=== PATIENT | female | born 1940 | race Caucasian/White ===

== ENCOUNTER 2025-03-05 20:46 | Inpatient (IN) | payer MEDICARE, BC, SELFPAY ==
[2025-03-05] VITALS (18 sets, daily range): BP systolic 103–140; BP diastolic 44–81; PULSE 81–109; RESP 12–29; TEMP 37.3; O2SAT 88–98; BMI 23.8
--- NOTE | ~2025-03-05 | XR_ITS ---
XR chest 1V portable Ordering provider: Bobby oCto MD History: 84 years Female with . Rigors, Course lung sounds . Comparison: None. FINDINGS: MEDIASTINUM: The cardiac silhouette is slightly enlarged. Right hilar prominence suggestive of a mass or lymphadenopathy. CT evaluation advised. LUNGS: Vague opacity in the right upper lobe measuring 1.4 cm which may be a nodule or granuloma. Opa cification in the right lung base is not excluded which may indicate atelectasis versus pneumonia. Cl inical correlation advised. Otherwise, No effusions or pneumothorax. Underlying fibrotic changes. OTHER: No free air under the diaphragm. Right shoulder arthroplasty. Severe left shoulder osteoarthri tic changes. IMPRESSION: Very prominent right hilum. Further evaluation advised. Vague opacity in the right upper lobe which may be a nodule or granuloma. Possible atelectasis versus pneumonia in the right lung base. Reviewed, dictated and finalized at location A.
--- NOTE | ~2025-03-05 | CT_ITS ---
CT Scan of the Chest without Contrast: Clinical Indication: Pneumonia Technique: Contiguous sections were acquired throughout the chest without intravenous contrast. Dose reduction technique was used on this scan by utilizing automated exposure control and iterative recon struction technique. The dose-length product (DLP) was 157.08 mGy-cm. Findings: There is no evidence of any significant mediastinal, hilar or axillary lymphadenopathy. Calcified sub carinal and right hilar lymph nodes are present. There are atherosclerotic calcifications of aorta an d coronary arteries. There is no evidence of pleural or pericardial effusion. There is extensive patchy consolidation at the inferior right lower lobe, compatible with acute pneum onia. There is bronchiectatic change and scarring at the right middle lobe and lingula with scattered tree-in-bud opacities. There are a few additional areas of grouped nodules in the right lower lobe a nd right upper lobe, with nodules measuring up to 9 mm, most compatible small airways infectious proc ess or small impacted airways. There are a few scattered subcentimeter nodules in the left lower lobe as well. Images through the upper abdomen reveal no abnormalities. Impression: Acute pneumonia in the inferior right lower lobe. Findings compatible with acute on chronic small airways infection scattered throughout both lungs, wi th extensive bronchiectatic change in the right middle lobe and lingula in particular, with additiona l scattered subcentimeter nodules present. Neoplastic disease felt to be less likely, though not comp letely excluded. Reviewed, dictated and finalized at location . Impression: Acute pneumonia in the inferior right lower lobe. Findings compatible with acute on chronic small airways infection scattered thr oughout both lungs, with extensive bronchiectatic change in the right middle lo be and lingula in particular, with additional scattered subcentimeter nodules p resent. Neoplastic disease felt to be less likely, though not completely exclud ed.
--- NOTE | 2025-03-05 21:02 | ECG_ITS ---
Test Date: 2025-03-05 21:04:50 Measurements Intervals [place] Rate: 90 P: 54 SD: 212 QRS: -69 QRSD: 135 T: 84 QT: 349 QTc: 427 Interpretive Statements SINUS RHYTHM WITH FIRST DEGREE AV BLOCK LEFT AXIS DEVIATION [QRS AXIS < -30] LEFT BUNDLE BRANCH BLOCK [120+ ms QRS DURATION, 80+ ms Q/S IN V1/V2, 85+ ms R IN I/aVL/V5/V6] No previous ECG available for comparison Electronically Signed On 03-07-2025 14:11:34 CDT by Shelia Quinn M.D.
[2025-03-05] MEDS: SODIUM CHLORIDE 0.9% IV 1,000 ML 999 ML IV CONT (21:37)
[2025-03-05 21:42] LABS: Basophils Percent Auto 0.3 % (0.2-1.2); Eosinophils Percent Auto 0.1 % (0-4.4); Hematocrit 42.9 % (37.0-47.0); Immature Granulocyte Absolute 0.06 K/mm3 (0.00-0.031); Immature Granulocyte Percent A 0.5 % (0-0.5); Mean Corpuscular HGB Conc 32.6 g/dl (32-36); Mean Corpuscular Volume 98.2 fl (80-100); Mean Platelet Volume 9.4 fl (7.4-10.4); Monocytes Absolute Auto 0.5 K/mm3 (0.1-0.6); Monocytes Percent Auto 3.5 % (2.6-8.5); Neutrophils Absolute Auto 12.2 K/mm3 (1.3-6.7); Neutrophils Percent Auto 92.6 % (45.5-73.1); Platelet Count Result 161 k/mm3 (150-375); Red Blood Count 4.37 M/mm3 (4.2-5.4); Red Cell Distribution Width 12.4 % (11.5-14.5); White Blood Count 13.1 K/mm3 (4.5-10.0)
[2025-03-05 21:45] LABS: Fractional Inspired Oxygen 21 %; PCO2 VBG 40.7 mmHg (42.0-48.0)
[2025-03-05 21:47] LABS: Add Urine Microscopic? YES; Appearance Urine Clear (Clear); Bacteria Urine None Seen /hpf; Bilirubin Urine Negative (Negative); Blood Urine 1+ (Negative); Color Urine Yellow (Yellow); Glucose Urine UA Negative (Negative); Ketones Urine Negative (Negative); Leukocyte Esterase Ur Negative LEU/UL (Negative); Nitrate Urine Negative (Negative); Non Pathogenic Casts 0-2; Protein Urine Negative (Negative); Specific Grav Ur 1.012 (1.001-1.035); Squamous Epithelial Cell Urine None Seen /hpf (Few); WBC Urine 0-5 /hpf (0-3)
[2025-03-05 21:48] LABS: PO2 VBG < 27.0 mmHg (35.0-45.0); pH VBG 7.407 (7.300-7.400)
[2025-03-05 21:53] LABS: Lactic Acid Reflex 1.6 mmol/L (0.7-2.0)
[2025-03-05 21:54] LABS: INR 1.1; Prothrombin Time 14.4 Seconds (11.1-14.7)
--- OUTSIDE RECORDS SUMMARY | 2025-03-05 21:54 | XMS_ITS | Referral Summary ---
Author Organization [facility] Address [address] [place] [address] Care Team Providers Care Microsoft Office Instructor Name Role Phone James Morse MD Primary Care Provider [phone] Ji Rodriguez MD Unavailable [phone] Danielle Reinoso RN Unavailable Unavailable Nancy Sutton RN Unavailable Unavailab le Encounters Date Type Department Care Team Description 12/08/2024 Orders Only [facility] [address] [facility] [address] [place] [address] Ethel Calles RMA from Last 3 Months Allergies Active Allergy Reactions Criticality Noted Date Comments Azithromycin Nausea And Vomiting 07/08/2016 Severe nausea and diarrhea Ethambutol Hives Medium Reaction: HIVES Sulfa (Sulfonamide Antibiotics) Hives,Rash Reaction: HIVES, Reaction: Rash, Medications docusate sodium (COLACE) 100 mg capsuleIndicati ons:constipatio n Take 1 capsule (100 mg total) by mouth daily as needed Active acetaminophen ER (TYLENOL) 650 mg 8 hr tabletIndicatio ns:Pain Take 1-2 tablets (650-1,300 mg total) by mouth every 8 (eight) hours as needed Active aspirin 81 mg enteric coated tabletIndicatio ns:Myocardial Reinfarction Prevention Take 1 tablet (81 mg total) by mouth every morning Active fluticasone propion-salmete roL (ADVAIR DISKUS) 100-50 mcg/dose diskus inhaler Inhale 1 puff 2 (two) times a day Rinse mouth with water after use. Do not swallow. 3 each 1 07/09/20 23 Active Additional Information Patient not taking.Reported on 09/19/2024 furosemide (LASIX) 20 mg tablet Take 1 tablet (20 mg total) by mouth every other day 45 tablet 3 02/29/20 24 Active losartan (COZAAR) 25 mg tablet Take 1 tablet (25 mg total) by mouth daily 90 tablet 1 12/08/19 25 026 Active levothyroxine (SYNTHROID) 50 mcg tablet TAKE 1 TABLET BY MOUTH EVERY DAY 90 tablet 3 12/23/19 25 Active amLODIPine (NORVASC) 2.5 mg tablet Take 1 tablet (2.5 mg total) by mouth daily 90 tablet 1 01/19/20 25 026 Active metoprolol XL (TOPROL-XL) 100 mg 24 hr tablet TAKE 1 TABLET BY MOUTH EVERY DAY 90 tablet 3 01/25/20 25 Active gabapentin (NEURONTIN) 300 mg capsule TAKE 1 CAPSULE BY MOUTH THREE TIMES A DAY 90 capsule 2 02/21/20 25 Active celecoxib (CeleBREX) 100 mg capsule TAKE 1 CAPSULE BY MOUTH TWICE A DAY WITH MEALS 180 capsule 02/28/20 25 Active gabapentin (NEURONTIN) 300 mg capsule TAKE 1 CAPSULE BY MOUTH THREE TIMES A DAY 90 capsule 1 11/21/19 25 025 Discontinued celecoxib (CeleBREX) 100 mg capsule TAKE 1 CAPSULE BY MOUTH TWICE A DAY WITH MEALS 180 capsule 11/27/19 25 025 Discontinued Active Problems Problem Noted Date Diagnosed Date 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 Heart failure with reduced ejection fraction 03/2025 Assessment & Plan (12/01/2024 12:29 PM CLIPPER MACHINE OPERATOR): Stable. No signs of decompensation Chronic cough 12/01/2024 Assessment & Plan (12/01/2024 12:29 PM CLIPPER MACHINE OPERATOR): Refer to pulmonary Mycobacterium avium-intracellulare infection 08/ 11/2020 Overview (05/27/2021): treated for 2 years Arthritis 07/19/2019 Overview (07/19/2019): Overview: generalized History of asthma 07/19/2019 Overview (07/19/2019): Overview: no symptoms, but uses inhaler daily Hypertension 07/19/2019 Assessment & Plan (12/01/2024 12:29 PM CLIPPER MACHINE OPERATOR): Blood pressure has been somewhat lower. Will have her hold her evening losartan take losartan 50 in the morning and amlodipine 10 at HS. Primary osteoarthritis of left hip 08/27/2018 Assessment & Plan (12/01/2024 12:29 PM CLIPPER MACHINE OPERATOR): Chronic. 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 03/11/2014 Overview (01/29/2017): MYCOBACTERIAL DIS NOS Immunizations Immunization Administration Dates Next Due Influenza, Quad, Adjuvantated, Intramuscular 05/2023,08/06/2021 Influenza, Quadrivalent, Hig h Dose, Preservative Free, Intrr 09/03/2022 Influenza, Trivalent, Adjuvanted, Intramuscular 08/05/2024 Influenza, Trivalent, High D ose, Split, Preservative Free, Intramuscular 08/03/2015,08/08/2014 Influenza, Trivalent, Preservative Free, Intramu scular 08/08/2013 Pneumococcal Conjugate Pcv20 11/06/2023 RSV Vaccine, Pref, Recombina nt, Subunit, Adjuvanted, PF, IM (Arexvy) 11/26/2023 ZOSTER LIVE 02/03/2008 ZOSTER Recombinant 02/06/2024 Social History Tobacco Use Types Packs/Day Years Used Date Smoking Tobacco: Never Smokeless Tobacco: Never Tobacco Cessation:Counseling Given: Not Answered Alcohol Use Standard Drinks/Week Comments No 0 (1 standard drink = 0.6 oz pur e alcohol) AUDIT-C Answer Date Recorded Q1: How often do you have a drink containing alc ohol? Never 08/12/2021 Average Number of Drinks Not on file 021 Q3: How often do you have si x or more drinks on one occasion? Never 08/12/2021 Comments No Sex and Gender Information Value Date Recorded Sex Assigned at Not on file Legal Sex Female 11:31 PM CLIPPER MACHINE OPERATOR Gender Identity Female 03/12/2022 7:56 AM CDT Sexual Orientation Not on file Occupation Industry Job Start Date Job End Date Retired Not on file Not on file Not on file Last Filed Vital Signs Vital Sign Reading Time Taken Comments Blood Pressure 129/76 12/01/2024 11:48 AM CLIPPER MACHINE OPERATOR Pulse 76 12/01/2024 11:48 AM CLIPPER MACHINE OPERATOR Temperature 36.4 C (97.6 F) 08/02/2019 1:07 PM CDT Respiratory Rate 16 08/02/2019 1:07 PM CDT Oxygen Saturation 93% 09/19/2024 4:07 PM CLIPPER MACHINE OPERATOR Inhaled Oxygen Concentration - - Weight 63 kg (139 lb) 12/01/2024 11:48 AM CLIPPER MACHINE OPERATOR Height 160 cm (5' 3 ) 12/01/2024 11:48 AM CLIPPER MACHINE OPERATOR Body Mass Index 24.62 12/01/2024 11:48 AM CLIPPER MACHINE OPERATOR Plan of Treatment Not on file Procedures Procedure Name Priority Date/Time Associated Diagnosis Comments DEXA AXIAL AND FOREARM BONE DENSITY SCAN Schedule Routine, Read Routine (OP Routine) 03/11/2021 12:03 PM CDT Osteoporosis, unspecified osteoporosis type, unspecified pathological fracture presence from Last 3 Months or Most Recently Relevant to Health Maintenance Results * Dexa Axial and Forearm Bone Density Scan (03/11/2021 12:03 PM CDT) Anatomical Region Laterality Modality Wrist, Body N/A Digital Radiogra phy 03/11/2021 1:03 PM CDT Impressions 03/11/2021 1:32 PM CDT 1. The bone mineral density of the lumbar spine is normal. There has been a statistically significant decrease in bone mineral density since the baseline examination of 04/25/2003. Please note that degenerative changes in the lumbar spine may underestimate the degree of demineralization. 2. The bone mineral density of the left distal 1/3 radius is markedly decreased. 3. Overall, the above findings are diagnostic of osteoporosis by WHO criteria. 4. Calculation of fracture risk using the FRAX model is not appropriate in certain settings. It was not performed in this patient because the patient met the following condition(s): Unilateral left hip replacement and severe osteoarthritis of the contralateral hip. General comments regarding interpretation of bone density measurements: A) In children, premenopausal woman and males under age 50 not at increased risk for fractures only Z-scores, not T-scores are used to indicate risk. A Z-score above -2.0 is defined as within the expected range for age and Z-score at or less than -2.0 is below the expected range for age . A Z-score below the expected range for age in a patient with recent fractures and/or chronic corticosteroid treatment is consistent with a diagnosis of osteoporosis. B) In post menopausal women and males over 50, comparison of the measured bone mineral density with the average value in young normal subjects (the T-score ) has been found to be useful in assessing fracture risk. Fracture risk approximately doubles for each 1.0 standard deviation (SD) in individual's hip or spine bone mineral density is below the average value of young normal subjects. The World Health Organization (WHO) has defined T-scores of -1.0 to -2.5 as diagnostic of low bone mass (OSTEOPENIA), and T-scores of -2.5 or lower to be diagnostic of OSTEOPOROSIS, based on the site of lowest bone density. Note that there will be a change in reporting format and reference databases as patients move from the younger population (group A) to the older population (group B) The National Osteoporosis Foundation (www.nof.org) recommends adequate intake of calcium and vitamin D and regular weight-bearing exercise in all patients. They recommend pharmacologic treatment in postmenopausal women and men age 50 and older presenting with any of the followin) Osteoporosis, after appropriate evaluation to exclude secondary causes. 2) A hip or vertebral (clinical or radiographic) fracture, regardless of the bone density. 3) Low bone mass (Osteopenia) and one or more of: other prior fractures, secondary causes associated with high risk of fracture (such as glucocorticoid use or total immobilization), or computed high risk of fracture (10-yr probability of hip fracture >= 3% or a 10-yr probability of any major osteoporosis-related fracture >= 20% based on the [place].-adapted WHO algorithm), available at http://www.shef.ac.uk/FRAX). Dictated by: Suzi Mejía M.D. The radiology attending physician has personally reviewed this study, and had reviewed and/or edited this written report and agrees with it. Electronically signed by: Yasmin Lara M.D. Narrative 03/11/2021 1:32 PM CDT BONE DENSITOMETRY OF THE SPINE AND FOREARM DATE OF STUDY: 03/11/2021 HISTORY: 80-year-old postmenopausal woman with subjective loss of height and self-reported osteoporosis. No current or recent antiresorptive medications. Evaluate bone mineral density. Additional risk factors for fracture: none. Forearm included in analysis due to right hip replacement and erosive osteoarthritis of the left hip. FINDINGS (SPINE): The bone mineral density of L1, L2 was assessed by dual-energy x-ray absorptiometry. The average bone mineral density within this region is 0.932 gm/sq-cm. This is 2.0 standard deviations above the mean of the average bone mineral density for age- and gender-matched subjects (the Z-score). It is 0.4 standard deviations below the mean peak bone mineral density in young adults (the T-score). L3 and L4 have been previously excluded due to sclerotic degenerative and scoliotic changes. FINDINGS (FOREARM): The bone mineral density of the left radius was assessed by dual-energy x-ray absorptiometry. The average bone mineral density within the distal 1/3 radius region is 0.475 gm/sq-cm. This is 0.7 standard deviations below the mean of the average bone mineral density for age- and gender-matched subjects (the Z-score). It is 3.7 standard deviations below the mean peak bone mineral density in young adults (the T-score). SUMMARY OF CURRENT RESULTS: Region BMD T-score Z-score AP Spine (L1, L2) 0.932 -0.4 2.0 1/3 Radius (Left) 0.475 -3.7 -0.7 COMPARISON WITH PREVIOUS RESULTS Region Age BMD T-score BMD Change BMD Change Exam Date g/cm2 vs Baseline vs Previous AP Spine (L1-L2) 03/11/2021 80 0.932 -0.4 -13.6%# -27.5%* 03/11/2021 80 1.285 2.8 19.1%# 19.1%# 04/25/2003 62 1.079 0.9 *Denotes significance at 95% confidence level # Denotes dissimilar scan types or analysis methods Procedure Note Yasmin Lara MD - 03/11/2021 BONE DENSITOMETRY OF THE SPINE AND FOREARM DATE OF STUDY: 03/11/2021 HISTORY: 80-year-old postmenopausal woman with subjective loss of height and self-reported osteoporosis. No current or recent antiresorptive medications. Evaluate bone mineral density. Additional risk factors for fracture: none. Forearm included in analysis due to right hip replacement and erosive osteoarthritis of the left hip. FINDINGS (SPINE): The bone mineral density of L1, L2 was assessed by dual-energy x-ray absorptiometry. The average bone mineral density within this region is 0.932 gm/sq-cm. This is 2.0 standard deviations above the mean of the average bone mineral density for age- and gender-matched subjects (the Z-score). It is 0.4 standard deviations below the mean peak bone mineral density in young adults (the T-score). L3 and L4 have been previously excluded due to sclerotic degenerative and scoliotic changes. FINDINGS (FOREARM): The bone mineral density of the left radius was assessed by dual-energy x-ray absorptiometry. The average bone mineral density within the distal 1/3 radius region is 0.475 gm/sq-cm. This is 0.7 standard deviations below the mean of the average bone mineral density for age- and gender-matched subjects (the Z-score). It is 3.7 standard deviations below the mean peak bone mineral density in young adults (the T-score). SUMMARY OF CURRENT RESULTS: Region BMD T-score Z-score AP Spine (L1, L2) 0.932 -0.4 2.0 1/3 Radius (Left) 0.475 -3.7 -0.7 COMPARISON WITH PREVIOUS RESULTS Region Age BMD T-score BMD Change BMD Change Exam Date g/cm2 vs Baseline vs Previous AP Spine (L1-L2) 03/11/2021 80 0.932 -0.4 -13.6%# -27.5%* 03/11/2021 80 1.285 2.8 19.1%# 19.1%# 04/25/2003 62 1.079 0.9 *Denotes significance at 95% confidence level # Denotes dissimilar scan types or analysis methods IMPRESSION: 1. The bone mineral density of the lumbar spine is normal. There has been a statistically significant decrease in bone mineral density since the baseline examination of 04/25/2003. Please note that degenerative changes in the lumbar spine may underestimate the degree of demineralization. 2. The bone mineral density of the left distal 1/3 radius is markedly decreased. 3. Overall, the above findings are diagnostic of osteoporosis by WHO criteria. 4. Calculation of fracture risk using the FRAX model is not appropriate in certain settings. It was not performed in this patient because the patient met the following condition(s): Unilateral left hip replacement and severe osteoarthritis of the contralateral hip. General comments regarding interpretation of bone density measurements: A) In children, premenopausal woman and males under age 50 not at increased risk for fractures only Z-scores, not T-scores are used to indicate risk. A Z-score above -2.0 is defined as within the expected range for age and Z-score at or less than -2.0 is below the expected range for age . A Z-score below the expected range for age in a patient with recent fractures and/or chronic corticosteroid treatment is consistent with a diagnosis of osteoporosis. B) In post menopausal women and males over 50, comparison of the measured bone mineral density with the average value in young normal subjects (the T-score ) has been found to be useful in assessing fracture risk. Fracture risk approximately doubles for each 1.0 standard deviation (SD) in individual's hip or spine bone mineral density is below the average value of young normal subjects. The World Health Organization (WHO) has defined T-scores of -1.0 to -2.5 as diagnostic of low bone mass (OSTEOPENIA), and T-scores of -2.5 or lower to be diagnostic of OSTEOPOROSIS, based on the site of lowest bone density. Note that there will be a change in reporting format and reference databases as patients move from the younger population (group A) to the older population (group B) The National Osteoporosis Foundation (www.nof.org) recommends adequate intake of calcium and vitamin D and regular weight-bearing exercise in all patients. They recommend pharmacologic treatment in postmenopausal women and men age 50 and older presenting with any of the followin) Osteoporosis, after appropriate evaluation to exclude secondary causes. 2) A hip or vertebral (clinical or radiographic) fracture, regardless of the bone density. 3) Low bone mass (Osteopenia) and one or more of: other prior fractures, secondary causes associated with high risk of fracture (such as glucocorticoid use or total immobilization), or computed high risk of fracture (10-yr probability of hip fracture >= 3% or a 10-yr probability of any major osteoporosis-related fracture >= 20% based on the [place].-adapted WHO algorithm), available at http://www.shef.ac.uk/FRAX). Dictated by: Suzi Mejía M.D. The radiology attending physician has personally reviewed this study, and had reviewed and/or edited this written report and agrees with it. Electronically signed by: Yasmin Lara M.D. James Morse MD IMG DXA PROCEDURES Final Resu lt from Last 3 Months or Most Recently Relevant to Health Maintenance Insurance MEDICARE [facility] [employer] MEDICARE MEDICARE [facility] Care Teams Microsoft Office Instructor Relationship Specialty Start Date End Date James Morse MD [address] [employer] [address] [address] PCP - General Internal Medicine 05/11/19 Ji Rodriguez MD [address] [employer] [address] [address] Referring Physician Cardiology 08/05/22 Danielle Reinoso, filament welder Failure Coordinator Transplant 11/25/23 Nancy Sutton, filament welder Failure Coordinator Cardiology 04/12/24
--- OUTSIDE RECORDS SUMMARY | 2025-03-05 21:54 | XMS_ITS | CONTINUITY OF CARE DOCUMENT ---
Author Name pratibha, pratibha Address Unknown Organization [facility] Address [address] [place] [address] Phone [phone] Care Team Providers Care Worm Raiser Name Role Phone Eddie LUO, Héctor Unavailable LYLE LUU MD Unavailable LYLE LUU MD Unavailable [phone] PROBLEMS Condition Status Date Provider Notes Shortness of breath active Liviapatricia Alatorre Chest pain active Livia Alatorre INSURANCE PROVIDERS Payer name Policy type / Coverage type Bonnie red green party ID [facility] [id number] 1 [place] [id number] HISTORY OF PROCEDURES Procedure Date Procedure Name Provider Procedure Notes S tatus Stress EKG Loco Shaw MD completed Regadenoson, 4 units Héctor Morgan MD completed Cardiolite, 2 units Héctor Morgan MD completed SPECT Images Héctor Morgan MD complet ed
--- OUTSIDE RECORDS SUMMARY | 2025-03-05 21:54 | XMS_ITS | Continuity of Care Document ---
Author Organization [facility] Address [address] [place] [address] Phone Care Team Providers Care Counseling Department Chair Name Role Phone Kevin Shaw DO Unavailable Unavailable Advance Directives Directive Yes / No Effective Date File Name No Information Encounters Encounter Description Practice Location Reason(s) For Visit Diagnoses Date Provider Providers Copied on Encounter [facility], [address], [place], [place], [id number], [place] tel:[phone] [facility] No Information Valeria Frederick. [address], [place], [address], [place]. tel: [phone] Family History Family Member Type Diagnosis Age At Onset No Information Payers Payer name Insurance type Covered democrat ID Authoriza tion(s) No Information Social History Type Description Quantity Date Captured Comments Sex Female Smoking Status No Information Chief Complaint And Reason For Visit No Information Reason For Referral Reason For Referral No Information History Of Present Illness Encounter Date Complaint History Of Prese nt Illness No Information Functional Status Date Functional Assessmen t No Information Instructions Date Instruction Additional Infor mation No Information Assessments Type Assessment Date No Information Patient Care Teams Name Effective Dates (start - stop) Status Members No Information
--- OUTSIDE RECORDS SUMMARY | 2025-03-05 21:54 | XMS_ITS | Clinical Summary ---
Author Organization [facility] Address [address] [place] [address] Care Team Providers Care Mucker Cofferdam Name Role Phone James Morse MD Primary Care Provider [phone] Ji Rodriguez MD Unavailable [phone] Danielle Reinoso RN Unavailable Unavailable Nancy Sutton RN Unavailable Unavailab le Allergies Active Allergy Reactions Criticality Noted Date [...] 12/01/2024 Assessment & Plan (12/01/2024 12:29 PM REPORTING COORDINATOR): Followed by cardiology. Heart failure with reduced ejection fraction 03/2025 Assessment & Plan (12/01/2024 12:29 PM REPORTING COORDINATOR): Stable. 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 Will have her hold her evening losartan take losartan 50 in the morning and amlodipine 10 at HS. Primary osteoarthritis of left hip 08/27/2018 Assessment & Plan (12/01/2024 12:29 PM REPORTING COORDINATOR): Chronic. 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 Swelling of extremity [...] mycobacteria 03/11/2014 Overview (01/29/2017): MYCOBACTERIAL DIS NOS Encounters Date Type Department Care Team Description 12/08/2024 Orders Only [facility] [address] [place] [address] Ethel Calles RMA from Last 3 Months Immunizations Immunization Administration Dates Next Due Influenza, Quad, Adjuvantated, Intramuscular 05/2023,08/06/2021 Influenza, Quadrivalent, Hig h Dose, Preservative Free, Intrr 09/03/2022 Influenza, Trivalent, Adjuvanted, Intramuscular 08/05/2024 Influenza, Trivalent, High D ose, Split, Preservative Free, Intramuscular 08/03/2015,08/08/2014 Influenza, Trivalent, Preservative Free, Intramu scular 08/08/2013 Pneumococcal Conjugate Pcv20 11/06/2023 RSV Vaccine, Pref, Recombina nt, Subunit, Adjuvanted, PF, IM (Arexvy) 11/26/2023 ZOSTER LIVE 02/03/2008 ZOSTER Recombinant 02/06/2024 Surgical History Surgery Date Site/Laterality Comments VAGINAL HYSTERECTOMY 10/26/2001 - 10/25/2002 Hysterectomy, vaginal HYSTERECTOMY JOINT REPLACEMENT ABDOMINAL SURGERY KNEE SURGERY HIP SURGERY SHOULDER SURGERY HERNIA REPAIR esophage Medical History Medical History Date Comments Osteoporosis Hypertension Thyroid disease Family History Medical History Relation Name Comments Arthritis Mother Heart disease Mother Heart disease Sister Scoliosis Son Anesthesia problems Neg Hx Relation Name Status Comments Father Mother Sister Son Social History Tobacco Use Types Packs/Day Years [...] on file Legal Sex Female 11:31 PM REPORTING COORDINATOR Gender Identity Female 03/12/2022 7:56 AM CDT Sexual Orientation Not on file Occupation Industry Job Start Date Job End Date Retired Not on file Not on file Not on file Obstetrics History Last Filed Vital Signs Vital Sign Reading Time Taken Comments Blood Pressure 129/76 12/01/2024 11:48 AM REPORTING COORDINATOR Pulse 76 12/01/2024 11:48 AM REPORTING COORDINATOR Temperature 36.4 C (97.6 F) 08/02/2019 1:07 PM CDT Respiratory Rate 16 08/02/2019 1:07 PM CDT Oxygen Saturation 93% 09/19/2024 4:07 PM REPORTING COORDINATOR Inhaled Oxygen Concentration - - Weight 63 kg (139 lb) 12/01/2024 11:48 AM REPORTING COORDINATOR Height 160 cm (5' 3 ) 12/01/2024 11:48 AM REPORTING COORDINATOR Body Mass Index 24.62 12/01/2024 11:48 AM REPORTING COORDINATOR Plan of Treatment Health Maintenance Due Date Last Done Comments Depression Screening 1942 DTaP/Tdap/Td Vaccine (1 - Tdap) 1953 Hepatitis B Screening 1960 Well Visit 65+ 2007 Fall Risk Assessment 08/12/2022 08/12/2021 Zoster Vaccine (3 of 3) 04/02/2024 02/06/2024, 02/02 Covid-19 Vaccine ( season) 2024 09/23/2023, 08/14/2022, 08/30/2021, Additional history exists Osteoporosis Screening-Bone Density Scan 05/31/2025 03/11/2021 Postponed from 03/11/2023 (Patient declined, but will receive in the future) Pneumococcal vaccine 65+ Completed 11/06/2023 Influenza Vaccine Completed 08/05/2024, , 09/03/2022, Additional history exists Procedures Procedure Name Priority Date/Time Associated Diagnosis [...] by: Yasmin Lara M.D. James Morse MD IM DXA PROCEDURES Final Resu lt from Last 3 Months or Most Recently Relevant to Health Maintenance Insurance MEDICARE [facility] TRADITIONAL Member Subscriber Plan / Payer ( fective 2009-Present) Name:Chikis Arango Relation to Subscriber:Self Name:CHIKIS ARANGO Payer ID:[id number] (NAIC) Type:[employer] Address: [address] MEDICARE BLUE TRADITIONAL OOS TRADITIONAL OOS MEDICARE MEDICARE BLUE TRADITIONAL OOS Care Teams Mucker Cofferdam Relationship Specialty Start Date End Date James Morse MD [address] [address] PCP - General Internal Medicine 05/11/19 Ji Rodriguez MD [address] [place] [id number] [place] [address] Referring Physician Cardiology 08/05/22 Danielle Reinoso RN Heart Failure Coordinator Transplant 11/25/23 Nancy Sutton RN Heart Failure Coordinator Cardiology 04/12/24
--- OUTSIDE RECORDS SUMMARY | 2025-03-05 21:54 | XMS_ITS | Clinical Summary ---
Author Organization [facility] Address [address] [place] [address] Care Team Providers Care Numerical Control Machine Operator Name Role Phone James Morse MD Primary Care Provider [phone] James Mosre MD Unavailable [phone] Angie Claudio RN Unavailable Unavailable Source Comments [facility] Affiliates and Associated Physician Practices is amultiple site organization consisting of ambulatory clinics and hospital sitesin [place], [place], [place] and [place]. This disclosure is being madepursuant to the Care Everywhere program and may not contain all information available regarding this patient. Last updated 18.[facility] Allergies Active Allergy Reactions Criticality Noted Date Comments Azithromycin Nausea and/or Vomiting 07/08/2016 Severe nausea and diarrhea Ethambutol Itching 07/08/2016 Sulfa Drugs Itching 07/08/2016 Medications * Be aware that medications may not be up to date on this document. Alwaysverify current medications with the patient. celecoxib (CELEBREX) 100 MG capsule Take 100 mg by mouth once daily Active levothyroxine (SYNTHROID) 50 MCG tablet Take 50 mcg by mouth daily before breakfast Active triamterene-hyd roCHLOROthiazid e (MAXZIDE-25) 37.5-25 MG tablet Take 1 Tab by mouth once daily Active fluticasone-davis meterol (ADVAIR) 100-50 MCG/DOSE inhaler Inhale 1 Puff by mouth once daily Active multivitamin daily (THERAGRAN) tablet Take 1 Tab by mouth daily with food Active acetaminophen CR (TYLENOL ARTHRITIS PAIN) 650 MG tablet Take 650-1,300 mg by mouth every 8 hours as needed for Pain Active docusate sodium (COLACE) 100 MG capsule Take 100 mg by mouth once daily as needed for Constipation Active senna (SENOKOT) 8.6 MG tablet Take 8.6 mg by mouth once daily as needed for Constipation Active oxyCODONE-aceta minophen (PERCOCET) 7.5-325 MG tablet Take 1 Tab by mouth every 4 hours as needed for Pain 60 Tab 7 Active Active Problems Problem Noted Date Diagnosed Date Primary osteoarthritis of left hip 08/27/2018 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 08/28/2017 Acute bursitis of right shoulder 08/28/2017 Primary osteoarthritis of right knee 03/24/2017 Arthritis Overview (07/18/2016): generalized Hypertension History of asthma Overview (07/18/2016): no symptoms, but uses inhaler daily Mycobacterium avium-intracellulare infection Overview (07/18/2016): treated for 2 years Family History Medical History Relation Name Comments Parkinson's Disease Father CAD (Coronary Artery Disease) Mother Other History Son spine muscle a trophy type Relation Name Status Comments Father Mother Son Social History Tobacco Use Types Packs/Day Years Used Date Smoking Tobacco: Never Smokeless Tobacco: Never Tobacco Cessation:Counseling Given: Yes Alcohol Use Standard Drinks/Week Comments No 0 (1 standard drink = 0.6 oz pur e alcohol) Comments No Sex and Gender Information Value Date Recorded Sex Assigned at Not on file Legal Sex Female 5:30 AM 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 Gender Identity Not on file Sexual Orientation Not on file Last Filed Vital Signs Vital Sign Reading Time Taken Comments Blood Pressure 139/63 05/18/2017 11:32 AM CDT Pulse 98 05/18/2017 11:32 AM CDT Temperature 36.8 C (98.3 F) 05/18/2017 11:32 AM CDT Respiratory Rate 16 05/18/2017 11:32 AM CDT Oxygen Saturation 94% 05/18/2017 11:32 AM CDT Inhaled Oxygen Concentration - - Weight 65.8 kg (145 lb) 08/26/2018 10:52 AM CDT Height 157.5 cm (5' 2 ) 08/26/2018 10:52 AM CDT Body Mass Index 26.52 08/26/2018 10:52 AM CDT Plan of Treatment Health Maintenance Due Date Last Done Comments BONE DENSITY TESTING 1942 DTAP/TDAP/TD VACCINES (1 - Tdap) 1961 PNEUMOCOCCAL VACCINE 50+ (1 of 1 - PCV) 1992 ZOSTER VACCINE (1 of 2) 1992 Respiratory Syncytial Virus (RSV) Vaccine Pt: or over 60 yrs (1 - 1-dose 75+ series) 2017 COVID-19 VACCINE ( - 2023-2 5 season) 2024 DEPRESSION SCREENING 10/26/2024 INFLUENZA VACCINE (Season Ended) 2025 HEPATITIS B VACCINE Aged Out No longe r eligible based on patient's age to complete this topic HIB VACCINE Aged Out No longer eligi ble based on patient's age to complete this topic HPV VACCINE Aged Out No longer eligi ble based on patient's age to complete this topic MENINGOCOCCAL (Group B) VACC INE SHARED DECISION-MAKING Aged Out No longer eligibl e based on patient's age to complete this topic MENINGOCOCCAL GROUPS A/C/Y/W VACCINE Aged Out No longer eligible b ased on patient's age to complete this topic Medical Devices Implanted Type Area Dielectric Tester Device Identifier Shelf Expiration Date Model / Serial / Lot Cmnt Bone Plc R 40gm Grn Implanted:Qty: 2 on 05/14/2017 by Smith Jennings MD at [facility] Right: Knee [employer] 12/23/2021 [id number] / / [id number] Journey Nonporous Tibial Baseplate Implanted:Qty: 1 on 05/14/2017 by Smith Jennings MD at [facility] Right: Knee [employer] 04/14/2027 [id number] / / [id number] Size 4 Right Bi Cruciate Stabilized Journey Ii Bcs Oxinium Femoral Component Implanted:Qty: 1 on 05/14/2017 by Smith Jennings MD at [facility] Right: Knee [employer] 03/29/2027 [id number] / / [id number] Cmpnt Ptlr Ovl [id number] Gns2 Uhmwpe Kn Implanted:Qty: 1 on 05/14/2017 by Smith Jennings MD at [facility] Right: Knee [employer] 04/15/2027 [id number] / / [id number] Right Size 3-4 15mm Journey Ii Bcs Xlpe A/P 48mm M/L 68mm Articular Insert Implanted:Qty: 1 on 05/14/2017 by Smith Jennings MD at [facility] Right: Knee [employer] 12/29/2026 [id number] / / [id number] Explanted Type Area Dielectric Tester Device Identifier Shelf Expiration Date Model / Serial / Lot Ns Vis Cut Guide Jii Kit Rt Sz F4/T3 Explanted:Qty: 1 on 05/14/2017 at [facility] Right: Knee [employer] 08/03/2017 [id number] / / [id number] Insurance MEDICARE [facility] Advance Directives Documents on File Type Date Recorded Patient Instruction Assistant Principal Expl anation Adv Directive/Living Will/POA 05/19/2017 10:00 PM * Full Code (Latest Code Status on File) Date Activated Date Inactivated Comments 05/14/2017 2:40 PM 05/18/2017 6:58 PM Care Teams Numerical Control Machine Operator Relationship Specialty Start Date End Date James Mrose MD PCP - General Internal Medicine 10/17/16 James Morse MD Internal Medicine 10/17/16 Angie Claudio RN Case Manager 05/19/17
[2025-03-05 21:55] LABS: Alanine Aminotransferase 14 U/L (6-35); Albumin Level 4.1 g/dL (3.5-5.1); Alkaline Phosphatase 77 U/L (38-126); Anion Gap 9 mmol/L (4-12); Aspartate Amino Transferase 24 U/L (14-36); Bilirubin,Total 0.8 mg/dL (0.2-1.3); Blood Urea Nitrogen 38 mg/dL (7-17); Carbon Dioxide 26 mmol/L (22-30); Chloride 98 mmol/L (98-107); Estimated CRCL calculation 28 ml/min; Estimated Glomerular Filt Rate 43; Glucose 103 mg/dL (65-110); Lipase 81 U/L (23-300); Phosphorus 3.8 mg/dL (2.5-4.5); Potassium 4.6 mmol/L (3.4-5.0); Sodium 133 mmol/L (137-145)
[2025-03-05 22:03] LABS: NT Pro B Type Natriuretic Pept 1130 pg/mL (19.9-100)
[2025-03-05 22:05] LABS: Platelet Estimate Slightly Decreased (Adequate)
[2025-03-05 22:06] LABS: Hypochromasia 1+; Schistocytes None Seen
[2025-03-05 22:07] LABS: Glucose Point of Care 102 mg/dl (65-105)
[2025-03-05 22:07] LABS: Troponin I < 0.012 ng/mL (0.000-0.034)
--- NOTE | 2025-03-05 22:08 | ED.GENADULT ---
HPI - General Adult General Chief complaint: Unspecified Stated complaint: shaky/cold Time Seen by Provider: 03/05/25 20:50 History of Present Illness HPI narrative: This is 84-year-old female presenting a ED with a chief complaint being cold. Patient says she frequently feels chilled in the morning. However tonight she was trying to take off her support hose and she became very cold and developed rigors to the point where she was unable to take off her support hose. Her family then asked her to come to the hospital. Patient is denying fevers, headaches, chest pain difficulty breathing abdominal pain or urinary symptoms. No nausea vomiting and diarrhea. She is complaining of her typical arthritis pain which she says is all over her body. This has been ongoing for years. Related Data Home Medications Medication Instructions Recorded Confirmed Last Taken Type amlodipine 10 mg tablet mg 03/05/25 Unknown History celecoxib 100 mg capsule mg 03/05/25 Unknown History furosemide 20 mg tablet mg 03/05/25 Unknown History gabapentin 300 mg capsule mg 03/05/25 Unknown History levothyroxine 50 mcg tablet mcg 03/05/25 Unknown History losartan 25 mg tablet mg 03/05/25 Unknown History metoprolol succinate 100 mg mg PO 03/05/25 Unknown History tablet,extended release 24 hr Allergies Allergy/AdvReac Type Severity Reaction Status Date / Time euthambutal Allergy Mild Hives Uncoded 03/05/25 20:54 [facility] Past Medical History Medical History (Updated 03/05/25 @ 22:38 by Bobby Coto MD) Bronchiectasis Osteoarthritis Hypothyroidism Essential hypertension Exam Narrative: APPEARANCE: No apparent distress. Head: atraumatic. EYES: EOMI, NOSE: Atraumatic NECK: Trachea midline RESPIRATORY: Rhonchorous breath sounds, 88% on room air CARDIOVASCULAR: RRR, no peripheral edema ABDOMINAL: Non-distended soft nontender MUSCULOSKELETAl: No obvious deformities NEURO: Alert. Moving 4/4 extremities SKIN:: Warm, dry. Normal color PSYCHIATRIC: Normal affect Course Vital Signs Vital signs: Vital Signs Temperature 99.2 F 03/05/25 20:46 Pulse Rate 106 H 03/05/25 20:46 Respiratory Rate 16 03/05/25 20:46 Blood Pressure 140/62 03/05/25 20:46 Oxygen Delivery Room Air 03/05/25 20:46 Temperature 99.2 F 03/05/25 20:46 Pulse Rate 87 03/05/25 20:57 Respiratory Rate 20 03/05/25 20:58 Blood Pressure 140/62 03/05/25 20:57 Pulse Oximetry 92 03/05/25 20:58 Oxygen Delivery Room Air 03/05/25 20:46 Medical Decision Making MDM Narrative Medical decision making narrative: -Course: 84-year-old female presenting with chief complaint of shakes which I'm interpretting as rigors. She has rhonchi on lung exam. Sepsis workup obtained. CT chest shows bronchiectasis and pneumonia she is requiring 2 supplemental oxygen. White count is 13. Patient given 2 L of LR which meets the 30 cc/kilogram bolus criteria. Patient will be admitted the hospital for. -DDX includes but is not limited to: Pneumonia, viral syndrome UTI sepsis dehydration Independent EKG interpretation: Rhythm [sinus], Rate [90], [place]ner -[normal], PA -[prolonged], QRS [wide], QTC [normal], T waves -[negative for concerning inversions], ST Segments - [Negative for concerning elevations] Final interpretations: NSR w/ I av block Vital Signs Vital Signs: Vital Signs Temperature 99.2 F 03/05/25 20:46 Pulse Rate 106 H 03/05/25 20:46 Respiratory Rate 16 03/05/25 20:46 Blood Pressure 140/62 03/05/25 20:46 Oxygen Delivery Room Air 03/05/25 20:46 Temperature 99.2 F 03/05/25 20:46 Pulse Rate 87 03/05/25 20:57 Respiratory Rate 20 03/05/25 20:58 Blood Pressure 140/62 03/05/25 20:57 Pulse Oximetry 92 03/05/25 20:58 Oxygen Delivery Room Air 03/05/25 20:46 Lab Data 03/05/25 21:33 03/05/25 21:33 Labs: Lab Results 03/05/25 03/05/25 Range/Units 21:33 21:41 WBC 13.1 H (4.5-10.0) K/mm3 RBC 4.37 (4.2-5.4) M/mm3 Hgb 14.0 (12.0-15.0) g/dL Hct 42.9 (37.0-47.0) % MCV 98.2 (80-100) fl MCH 32.0 (26-34) pg MCHC 32.6 (32-36) g/dl RDW 12.4 (11.5-14.5) % Plt Count 161 (150-375) k/mm3 MPV 9.4 (7.4-10.4) fl Immature Gran % (Auto) 0.5 (0-0.5) % Neut % (Auto) 92.6 H (45.5-73.1) % Lymph % (Auto) 3.0 L (18.3-44.2) % [place] % (Auto) 3.5 (2.6-8.5) % Eos % (Auto) 0.1 (0-4.4) % Baso % (Auto) 0.3 (0.2-1.2) % Lymph # (Auto) 0.40 L (0.9-3.2) K/mm3 [place] # (Auto) 0.5 (0.1-0.6) K/mm3 Eos # (Auto) 0.0 (0-0.3) K/mm3 Baso # (Auto) 0.0 (0.0-0.1) K/mm3 Abs Immat Gran (auto) 0.06 H (0.00-0.031) K/mm3 Absolute Neuts (auto) 12.2 H (1.3-6.7) K/mm3 Absolute Nucleated RBC 0.000 (0.0-0.012) K/mm3 Band Neutrophils % Not Reportable Nucleated RBC % 0.0 (0.0-0.2) % Platelet Estimate Slightly decreased (Adequate) Hypochromasia 1+ Schistocytes None seen PT 14.4 (11.1-14.7) Seconds INR 1.1 APTT 35.0 (22.3-36.8) Seconds Sodium 133 L (137-145) mmol/L Potassium 4.6 (3.4-5.0) mmol/L Chloride 98 (98-107) mmol/L Carbon Dioxide 26 (22-30) mmol/L Anion Gap 9 (4-12) mmol/L BUN 38 H (7-17) mg/dL Creatinine 1.21 H (0.7-1.0) mg/dL Estim Creat Clear Calc 28 ml/min Estimated GFR 43 L (59 - ) Glucose 103 (65-110) mg/dL POC Capillary Glucose 102 (65-105) mg/dl Lactic Acid 1.6 (0.7-2.0) mmol/L Calcium 9.0 (8.4-10.2) mg/dL Phosphorus 3.8 (2.5-4.5) mg/dL Magnesium 2.0 (1.6-2.3) mg/dL Total Bilirubin 0.8 (0.2-1.3) mg/dL AST 24 (14-36) U/L ALT 14 (6-35) U/L Alkaline Phosphatase 77 (38-126) U/L Troponin I < 0.012 (0.000-0.034) ng/mL NT-Pro-B Natriuret Pep 1130 H (19.9-100) pg/mL Total Protein 8.0 (6.3-8.2) g/dL Albumin 4.1 (3.5-5.1) g/dL Lipase 81 (23-300) U/L Urine Color Yellow (Yellow) Urine Appearance Clear (Clear) Urine pH 6.0 (5.0-9.0) Ur Specific Orestes 1.012 (1.001-1.035) Urine Protein Negative (Negative) mg/dL Urine Glucose (UA) Negative (Negative) mg/dL Urine Ketones Negative (Negative) mg/dL Ur Blood (Man) 1+ H (Negative) Urine Nitrate Negative (Negative) Urine Bilirubin Negative (Negative) Urine Urobilinogen 1.0 (<2.0) mg/dL Leukocyte Esterase Rfl Negative (Negative) DANIEL/UL Urine RBC 6-10 H (0-2) /hpf Urine WBC 0-5 (0-3) /hpf Ur Squamous Epith Cells None seen (Few) /hpf Urine Bacteria None seen /hpf Urine Casts 0-2 Influenza A (RT-PCR) Pending Influenza B (RT-PCR) Pending RSV (RT-PCR) Pending SARS-CoV-2 RNA (RT-PCR) Pending ABG Data ABG results: 03/05/25 21:41 VBG pH 7.407 H* VBG pCO2 40.7 L VBG pO2 < 27.0 L VBG HCO3 25.0 FiO2 21 Critical Care Time Critical Care Time Critical Care Time: Yes Total Critical Care Time: 35 Discharge Plan Discharge Clinical Impression: Acute hypoxic respiratory failure, Sepsis, PNA (pneumonia) Patient Disposition: Still a Patient Condition: Stable Patient Language: Indonesian Prescriptions: No Action metoprolol succinate 100 mg tablet extended release 24 hr PO amlodipine 10 mg tablet levothyroxine 50 mcg tablet losartan 25 mg tablet gabapentin 300 mg capsule furosemide 20 mg tablet celecoxib 100 mg capsule Follow-up/Referrals: PHYSICIAN NOT ON STAFF,NONSTAFF [Primary Care Provider] -
[2025-03-05 22:18] LABS: Influenza A QL RT-PCR Negative (Negative); Influenza B QL RT-PCR Negative (Negative); RSV RNA, RT-PCR Negative (Negative); SARS-CoV-2 RNA PCR Negative (Negative)
--- NOTE | 2025-03-05 22:29 | P.HP_ITS ---
H&P: HPI History of Present Illness Date/Time: 03/05/25 22:50 Chief Complaint: “not feeling well” Narrative: 84-year-old female with a past medical history of bronchiectasis, mycobacterium avium complex about 40 years ago, moderate aortic stenosis, essential hypertension, chronic kidney disease stage 3 with baseline creatinine 1.1, essential hypertension chronic lower extremity edema with use of compression socks and chronic pain who presented to the ER from home via EMS complaining of not feeling well and chills. The patient states that she has been having a chronic cough for years. About a year ago she began having a cough productive of yellow sputum a. In March of last year she began having cough of yellow to brown sputum and was placed on a course of antibiotics. Her cough and sputum production did not improved. Several months ago instead of disc coughing some sputum up each morning she started having a small amount of sputum production in the afternoon as well. She reports that she never can not walk very far without being short of breath. She denies any chest pain. She denies any recent ill contacts. She has chronic lower extremity edema that is unchanged from baseline. She reports her left lower extremity is always more swollen than her right in this is been ongoing for most of her life. He denies any orthopnea or paroxysmal nocturnal dyspnea. She reports that today after she had been out and about for mother's Day when she returned home she felt fatigued. All the sudden she acutely did not feel well. She then started to get severe cold chills like she had never had before. She did not feel feverish. She has not had any nausea or vomiting. She denies chest pain. She did have her pneumococcal vaccine, RSV vaccine and flu vaccine this year. She states that she has mention her cough to her primary care physician and to her lighting equipment operator in the able told her that she needs to follow-up with a atomic process engineer. However she states that they did not make the referral and did not give a specific recommendation is to which atomic process engineer she should go see. The patient reports that in recent months 2 over antihypertensives have been decreased in dose. It looks like her Norvasc which was originally 10 mg last year was cut down to 5 mg and then a couple of months ago was cut down to 2.5 mg. Her losartan was also decreased recently from 50 mg down to 25 mg due to variable blood pressures. After the patient received 1 L normal saline bolus in the ER she did develop some hypoxia. Her oxygen saturations dropped to 85% on room air. She was placed on 3 L nasal cannula. On arrival to the ER the patient had a temperature of 99° and was mildly tachycardic with some mild tachypnea. Sepsis workup demonstrated leukocytosis, right lower lobe pneumonia on noncontrast CT scan of the chest with evidence of bronchiectasis, VBG demonstrated respiratory alkalosis with hypoxemia and BMP demonstrated mild hyponatremia with BUN of 38 and creatinine of 1.21. Labs from outside facility were reviewed and demonstrated elevated MCV but normal hemoglobin at 13.6, the patient's baseline creatinine is 1.16. Source of information comes from patient, review of patient's external medical records through my chart paul and family report. The patient's case was discussed with her 2 sons Esvin and Alexis at bedside with the patient's permission. Patient herself is a good historian. The patient denies known history of chronic kidney disease but review of the patient's outpatient labs from November demonstrated a creatinine of 1.16 and given the patient's age in weight is still leaves her GFR less than 60. Her labs at that time also demonstrated mild hyperkalemia. She has a baseline hemoglobin is outpatient of 13.6 with elevated MCV and she had a TSH recently that was normal at 2.42. Primary care physician: Dr. Morse Digital Content Marketing Manager: Dr. Yeboah ([facility]) Review of Systems 2 Review of Systems: 12 systems were reviewed with pertinent positives and negatives per HPI. Except as documented in the HPI, all other systems were reviewed and are negative. [facility] Past Medical History Medical History (Updated 03/06/25 @ 01:34 by Jessa Cunha DO) Osteoporosis Moderate aortic stenosis With echocardiogram August 2024 demonstrating EF of 54%, normal diastolic function, mild mitral valve regurgitation, moderate aortic stenosis with valve area 1.3 cm2 and velocity of 22 and mild tricuspid regurgitation Bronchiectasis Osteoarthritis Hypothyroidism TSH 2.November Essential hypertension Surgical History Surgical History (Updated 03/06/25 @ 01:19 by Jessa Cunha DO) History of esophageal hernia repair History of right hip replacement History of right shoulder replacement History of total bilateral knee replacement History of vaginal hysterectomy (~2001) Family History Family History (Updated 03/06/25 @ 01:20 by Jessa Cunha DO) Mother CHF (congestive heart failure) Father Parkinson disease CAD (coronary artery disease) Sibling Heart disease Son , 1 of her 3 sons Muscular dystrophy Social History Social History (Updated 03/06/25 @ 01:23 by Jessa Cunha DO) Social History: The patient lives in her own home. She had 3 sons 2 of which are still living. Code status: No CPR (the patient states that she would be okay with being intubated for a few days if she needed 2 to help her breathing but she would not want to be intubated for long-term. She states that if her heart were to stop she would want to be allowed a natural ) Healthcare power of civil litigation attorney: Mandeep (oldest son) Smoking status: Never smoker Alcohol intake: never Substance use: never Do You Feel Safe in your Home?: Yes Lack of Transportation: No Lack of Food: Never True Current Housing: I Have Housing Concerned About Future Housing: No Difficulty Paying Gas/Electric Bills: No Difficulty Paying for Meds: No Currently Unemployed: No Education: High School Diploma/GED Difficulty w/ Childcare or Family Care: No Spiritual care concerns: No Meds Home Medications and Allergies Home Medications Medication Instructions Recorded Confirmed Type amlodipine 10 mg tablet 2.5 mg PO DAILY 03/05/25 03/06/25 History celecoxib 100 mg capsule 100 mg PO BIDWMEAL 03/05/25 03/06/25 History furosemide 20 mg tablet 20 mg PO .qod 03/05/25 03/06/25 History gabapentin 300 mg capsule 300 mg PO TID 03/05/25 03/06/25 History levothyroxine 50 mcg tablet 50 mcg PO DAILY 03/05/25 03/06/25 History losartan 25 mg tablet 25 mg PO DAILY 03/05/25 03/06/25 History metoprolol succinate 100 mg 100 mg PO DAILY 03/05/25 03/06/25 History tablet,extended release 24 hr acetaminophen 325 mg capsule 650 mg PO .q8hr PRN fever or pain 03/06/25 03/06/25 History aspirin 81 mg tablet 81 mg PO DAILY 03/06/25 03/06/25 History docusate sodium 100 mg capsule 100 mg PO DAILY PRN constipation 03/06/25 03/06/25 History Allergies Allergy/AdvReac Type Severity Reaction Status Date / Time Sulfa (Sulfonamide Allergy Mild Hives Verified 03/05/25 23:19 Antibiotics) euthambutal Allergy Mild Hives Uncoded 03/05/25 20:54 Vital Signs Vital Signs - 24 hr 03/05/25 20:46 03/05/25 20:57 03/05/25 20:58 Temperature 99.2 F Pulse Rate 106 H 87 Respiratory Rate 16 19 20 Blood Pressure 140/62 140/62 Pulse Oximetry 93 92 Oxygen Delivery Room Air Exam 2 Narrative: Weight 63 kg BMI 23.8 Const: Other: Mildly ill-appearing, well-developed well-nourished, appears stated age HENMT: Other: Mucous membranes are moist, no oral pharyngeal erythema, fair dentition, nasal cannula in place Eyes: Other: Pupils are equal and reactive, no conjunctival pallor, no scleral icterus Neck: Other: No JVD, no lymphadenopathy Resp: Other: Rhonchi bilateral lung jones anteriorly, crackles at the bilateral bases right greater than left Cardio: Other: Mild sinus tachycardia, 2+ bilateral radial pedal pulses, 3/6 systolic murmur heard best at the left sternal border GI: Other: Soft, nontender, nondistended, normoactive bowel sounds, no hepatosplenomegaly Skin: Other: Generalized pallor, warm to touch Neuro: Other: Alert oriented x4, speech is clear, no facial asymmetry, no localizing neurologic deficits noted during the course of conversation Extrem: Other: Bilateral lower extremity edema nonpitting left greater than right (patient reports this is chronic), moves all extremities equally, 5/5 strength bilateral business systems architect and bilateral plantar flexion Psych: Other: Appropriate mood and affect, pleasant and cooperative, judgment and insight intact H&P: Results Labs Labs: Laboratory Tests 03/05/25 21:33 03/05/25 21:33 03/05/25 03/05/25 21:33 21:41 WBC 13.1 H RBC 4.37 Hgb 14.0 Hct 42.9 MCV 98.2 MCH 32.0 MCHC 32.6 RDW 12.4 Plt Count 161 MPV 9.4 Immature Gran % (Auto) 0.5 Neut % (Auto) 92.6 H Lymph % (Auto) 3.0 L [place] % (Auto) 3.5 Eos % (Auto) 0.1 Baso % (Auto) 0.3 Lymph # (Auto) 0.40 L [place] # (Auto) 0.5 Eos # (Auto) 0.0 Baso # (Auto) 0.0 Abs Immat Gran (auto) 0.06 H Absolute Neuts (auto) 12.2 H Absolute Nucleated RBC 0.000 Band Neutrophils % Not Reportable Nucleated RBC % 0.0 Platelet Estimate Slightly decreased Hypochromasia 1+ Schistocytes None seen PT 14.4 INR 1.1 APTT 35.0 VBG pH 7.407 H* VBG pCO2 40.7 L VBG pO2 < 27.0 L VBG HCO3 25.0 O2 Delivery Device Pending O2 Liters/Min Pending FiO2 21 Sodium 133 L Potassium 4.6 Chloride 98 Carbon Dioxide 26 Anion Gap 9 BUN 38 H Creatinine 1.21 H Estim Creat Clear Calc 28 Estimated GFR 43 L Glucose 103 POC Capillary Glucose 102 Lactic Acid 1.6 Calcium 9.0 Phosphorus 3.8 Magnesium 2.0 Total Bilirubin 0.8 AST 24 ALT 14 Alkaline Phosphatase 77 Troponin I < 0.012 NT-Pro-B Natriuret Pep 1130 H Total Protein 8.0 Albumin 4.1 Lipase 81 Urine Color Yellow Urine Appearance Clear Urine pH 6.0 Ur Specific [place] 1.012 Urine Protein Negative Urine Glucose (UA) Negative Urine Ketones Negative Ur Blood (Man) 1+ H Urine Nitrate Negative Urine Bilirubin Negative Urine Urobilinogen 1.0 Leukocyte Esterase Rfl Negative Urine RBC 6-10 H Urine WBC 0-5 Ur Squamous Epith Cells None seen Urine Bacteria None seen Urine Casts 0-2 Influenza A (RT-PCR) Negative Influenza B (RT-PCR) Negative RSV (RT-PCR) Negative SARS-CoV-2 RNA (RT-PCR) Negative Impressions Chest X-Ray 03/05/25 22:24 IMPRESSION: Very prominent right hilum. Further evaluation advised. Vague opacity in the right upper lobe which may be a nodule or granuloma. Possible atelectasis versus pneumonia in the right lung base. EKG: Normal sinus rhythm first-degree AV block rate 90, left bundle-branch block, QTC 427 All imaging and EKGs personally reviewed and interpreted. And unless stated otherwise agree with radiologic and cardiology interpretation. Assessment and Plan Assessment and plan (1) Acute hypoxic respiratory failure: Code(s): J96.01 - Acute respiratory failure with hypoxia Status: Acute (2) Sepsis: Qualifiers: Acute respiratory failure type: with hypoxia Sepsis acute organ dysfunction status: with acute organ dysfunction Sepsis type: sepsis due to unspecified organism Severe sepsis acute organ dysfunction type: acute respiratory failure Severe sepsis shock status: without septic shock Qualified Code(s): A41.9 - Sepsis, unspecified organism; R65.20 - Severe sepsis without septic shock; J96.01 - Acute respiratory failure with hypoxia Code(s): A41.9 - Sepsis, unspecified organism Status: Acute (3) Right lower lobe pneumonia: Qualifiers: Pneumonia type: due to unspecified organism Qualified Code(s): J18.9 - Pneumonia, unspecified organism Code(s): J18.9 - Pneumonia, unspecified organism Status: Acute (4) Bronchiectasis: Qualifiers: Bronchiectasis type: with acute exacerbation Qualified Code(s): J47.1 - Bronchiectasis with (acute) exacerbation Code(s): J47.9 - Bronchiectasis, uncomplicated Status: Acute Plan The patient presents with sepsis due to right lower lobe pneumonia complicating chronic bronchiectasis and resulting in acute hypoxic respiratory failure. The blood cultures were obtained and are pending. Patient was started on empiric antibiotic therapy with Rocephin and doxycycline. Will check MRSA PCR. Patient received 30 mL/kilos bolus in the ER. The patient does have known history of bronchiectasis and what sounds like Mycobacterium avium complex. She has long history of dyspnea on exertion and productive cough. She would like referral to atomic process engineer. Patient did develop hypoxic respiratory failure and is on nasal cannula. Will wean O2 as tolerated. Will encourage good pulmonary toilet with Acapella and provide mucolytic therapy with Mucinex. Given the patient's history of moderate aortic stenosis in the fact the patient appears intervascular volume repleted will off on any further additional fluids at this time. Will monitor strict I&O's and daily weights. Will hold patient's home Lasix that is usually every other day (last taken 03/04/2025). Patient does have chronic kidney disease but BUN and creatinine appears to be near baseline. Will repeat CBC and BMP in a.m.. Patient does have a history of essential hypertension and blood pressures are currently stable. Will monitor closely. Patient may need further deescalation of her antihypertensives. Quality VTE Prophylaxis VTE prophylaxis: pharmacologic ordered (Lovenox 30 mg subQ daily.) Hospitalist [facility] Advance Care Plan I have confirmed that the patient's Advanced Care Plan is present, code status is documented, or surrogate decision maker is listed in patient medical record.: Yes Medication Reconciliation I have utilized all available resources to obtain, update and review the patients current medications (includes all prescriptions, OTC, herbals, cannabis, and nutritional supplements).: Yes
[2025-03-05] MEDS: DOXYCYCLINE 100 MG/NS 100 ML 100 MG/100 ML BAG IVPB (23:18)
[2025-03-05 23:55] LABS: Procalcitonin 0.1 ng/mL
[2025-03-06] VITALS (9 sets, daily range): BP systolic 102–117; BP diastolic 42–65; PULSE 62–80; RESP 16–20; TEMP 36.4–36.9; O2SAT 90–97
--- NOTE | 2025-03-06 00:04 | ADMGEN ---
This patient, Chikis Arango, was admitted to Medical Room 349-01. Patient/family oriented to hospital policies and general routines including ID bracelet, bed and alarms, visiting hours, pain management, procedures, bathroom and other care routines, personal items, smoking policy, room service/diet, and visiting hours. Information on how to activate the Rapid Response Team has been discussed. Patient/Family are encouraged to report perceived risks to care and to ask questions if they do not understand what they are told or what they should do.
[2025-03-06] MEDS: LACTATED RINGERS 1,000 ML 999 ML IV CONT (00:47)
[2025-03-06 00:56] LABS: Troponin I < 0.012 ng/mL (0.000-0.034)
[2025-03-06 03:19] LABS: MRSA (PCR) NOT DETECTED (NOT DETECTE)
[2025-03-06] MEDS: LEVOTHYROXINE SODIUM 50 MCG TABLET PO (05:31)
[2025-03-06 06:07] LABS: Basophils Absolute Auto 0.1 K/mm3 (0.0-0.1); Basophils Percent Auto 0.3 % (0.2-1.2); Eosinophils Percent Auto 0.1 % (0-4.4); Hematocrit 37.7 % (37.0-47.0); Hemoglobin 12.2 g/dL (12.0-15.0); Immature Granulocyte Absolute 0.14 K/mm3 (0.00-0.031); Immature Granulocyte Percent A 0.7 % (0-0.5); Lymphocytes Absolute Auto 1.09 K/mm3 (0.9-3.2); Lymphocytes Percent Auto 5.1 % (18.3-44.2); Mean Corpuscular HGB Conc 32.4 g/dl (32-36); Mean Platelet Volume 9.5 fl (7.4-10.4); Monocytes Absolute Auto 1.5 K/mm3 (0.1-0.6); Monocytes Percent Auto 6.9 % (2.6-8.5); Neutrophils Absolute Auto 18.7 K/mm3 (1.3-6.7); Neutrophils Percent Auto 86.9 % (45.5-73.1); Platelet Count Result 161 k/mm3 (150-375); Red Blood Count 3.81 M/mm3 (4.2-5.4); Red Cell Distribution Width 12.8 % (11.5-14.5); White Blood Count 21.5 K/mm3 (4.5-10.0)
[2025-03-06 06:19] LABS: Anion Gap 5 mmol/L (4-12); Blood Urea Nitrogen 31 mg/dL (7-17); Calcium 8.4 mg/dL (8.4-10.2); Carbon Dioxide 26 mmol/L (22-30); Chloride 105 mmol/L (98-107); Estimated CRCL calculation 37 ml/min; Estimated Glomerular Filt Rate 60; Glucose 99 mg/dL (65-110); Potassium 4.5 mmol/L (3.4-5.0); Sodium 136 mmol/L (137-145)
[2025-03-06 06:44] LABS: Anisocytosis 1+; Platelet Estimate Adequate (Adequate)
[2025-03-06 06:45] LABS: Schistocytes None Seen
[2025-03-06 09:27] LABS: Device ROOM AIR
--- NOTE | 2025-03-06 10:02 | PM.IMPN ---
Progress Note: A&P Assessment and Plan (1) Acute hypoxic respiratory failure: Code(s): J96.01 - Acute respiratory failure with hypoxia Status: Acute (2) Sepsis: Qualifiers: Acute respiratory failure type: with hypoxia Sepsis acute organ dysfunction status: with acute organ dysfunction Sepsis type: sepsis due to unspecified organism Severe sepsis acute organ dysfunction type: acute respiratory failure Severe sepsis shock status: without septic shock Qualified Code(s): A41.9 - Sepsis, unspecified organism; R65.20 - Severe sepsis without septic shock; J96.01 - Acute respiratory failure with hypoxia Code(s): A41.9 - Sepsis, unspecified organism Status: Acute (3) Right lower lobe pneumonia: Qualifiers: Pneumonia type: due to unspecified organism Qualified Code(s): J18.9 - Pneumonia, unspecified organism Code(s): J18.9 - Pneumonia, unspecified organism Status: Acute (4) Bronchiectasis: Qualifiers: Bronchiectasis type: with acute exacerbation Qualified Code(s): J47.1 - Bronchiectasis with (acute) exacerbation Code(s): J47.9 - Bronchiectasis, uncomplicated Status: Acute Plan The patient presents with sepsis due to right lower lobe pneumonia complicating chronic bronchiectasis and resulting in acute hypoxic respiratory failure. The blood cultures were obtained and are pending. Patient was started on empiric antibiotic therapy with Rocephin and doxycycline on 03/05 - MRSA PCR was checked and negative. - Patient received 30 mL/kilos bolus in the ER - The patient does have known history of bronchiectasis and what sounds like Mycobacterium avium complex. She has long history of dyspnea on exertion and productive cough. She would like referral to human resources mgr. -Patient did develop hypoxic respiratory failure and is on nasal cannula - wean O2 as tolerated - Will encourage good pulmonary toilet with Acapella and provide mucolytic therapy with Mucinex. Given the patient's history of moderate aortic stenosis in the fact the patient appears intervascular volume repleted will off on any further additional fluids at this time - monitor strict I&O's and daily weights - hold patient's home Lasix that is usually every other day (last taken 03/04/2025). -pulm consulted -Patient does have chronic kidney disease but BUN and creatinine appears to be near baseline - trend daily CBC and BMP Chronic HTN- reviewed and some hypotensive reading -will stop amlodipine 2.5 may need to de escalate metoprolol or losartan (on losartan 25 now and metoprolol 100) monitor closely Time Spent With Patient Time with patient: 25 - 35 minutes Subjective Date/time seen: 03/06/25 10:02 Interval history: 84-year-old female with a past medical history of bronchiectasis, mycobacterium avium complex about 40 years ago, moderate aortic stenosis, essential hypertension, chronic kidney disease stage 3 with baseline creatinine 1.1, essential hypertension chronic lower extremity edema with use of compression socks and chronic pain who admitted from home via EMS complaining of not feeling well and chills. After the patient received 1 L normal saline bolus in the ER she did develop some hypoxia-oxygen saturations dropped to 85% on room air. She was placed on 3 L nasal cannula. On arrival to the ER the patient had a temperature of 99° and was mildly tachycardic with some mild tachypnea. Sepsis workup demonstrated leukocytosis, right lower lobe pneumonia on noncontrast CT scan of the chest with evidence of bronchiectasis, VBG demonstrated respiratory alkalosis with hypoxemia and BMP demonstrated mild hyponatremia with BUN of 38 and creatinine of 1.21. Labs from outside facility were reviewed and demonstrated elevated MCV but normal hemoglobin at 13.6, the patient's baseline creatinine is 1.16 Pt is seen and examined this morning during rounds. She is on 3l per NC, on iv antibiotics. Up in the chair, pleasant. son at the bedside. on IV antibiotics. Review of Systems Review of Systems: 12 systems were reviewed with pertinent positives and negatives per HPI. Except as documented in the HPI, all other systems were reviewed and are negative. Exam Narrative: Weight 63 kg BMI 23.8 Const: Other: Mildly ill-appearing, well-developed well-nourished, appears stated age HENMT: Other: Mucous membranes are moist, no oral pharyngeal erythema, fair dentition, nasal cannula in place Eyes: Other: Pupils are equal and reactive, no conjunctival pallor, no scleral icterus Neck: Other: No JVD, no lymphadenopathy Resp: Other: Rhonchi bilateral lung jones anteriorly, crackles at the bilateral bases right greater than left Cardio: Other: Mild sinus tachycardia, 2+ bilateral radial pedal pulses, 3/6 systolic murmur heard best at the left sternal border GI: Other: Soft, nontender, nondistended, normoactive bowel sounds, no hepatosplenomegaly Skin: Other: Generalized pallor, warm to touch Neuro: Other: Alert oriented x4, speech is clear, no facial asymmetry, no localizing neurologic deficits noted during the course of conversation Extrem: Other: Bilateral lower extremity edema nonpitting left greater than right (patient reports this is chronic), moves all extremities equally, 5/5 strength bilateral patient care manager and bilateral plantar flexion Psych: Other: Appropriate mood and affect, pleasant and cooperative, judgment and insight intact Objective Data Vital Signs Vital Signs: Vital Signs - 24 hr 03/05/25 20:46 03/05/25 20:50 03/05/25 20:52 Temperature 99.2 F Pulse Rate 106 H 107 H 109 H Respiratory Rate 16 12 22 H Blood Pressure 140/62 140/62 Pulse Oximetry 92 93 Oxygen Delivery Room Air Oxygen Flow Rate 03/05/25 20:57 03/05/25 20:58 03/05/25 21:00 Temperature Pulse Rate 87 90 Respiratory Rate 19 20 24 H Blood Pressure 140/62 Pulse Oximetry 93 92 92 Oxygen Delivery Oxygen Flow Rate 03/05/25 21:01 03/05/25 21:15 03/05/25 21:30 Temperature Pulse Rate 94 97 89 Respiratory Rate 20 20 21 H Blood Pressure 132/81 Pulse Oximetry 92 90 91 Oxygen Delivery Oxygen Flow Rate 03/05/25 21:31 03/05/25 21:45 03/05/25 22:00 Temperature Pulse Rate 90 81 90 Respiratory Rate 29 H 28 H 16 Blood Pressure 111/51 L Pulse Oximetry 91 Oxygen Delivery Oxygen Flow Rate 03/05/25 22:01 03/05/25 22:25 03/05/25 22:25 Temperature Pulse Rate 89 85 Respiratory Rate 29 H 25 H Blood Pressure 128/51 L 121/48 L Pulse Oximetry 91 96 88 L Oxygen Delivery Nasal Cannula Oxygen Flow Rate 3 03/05/25 22:30 03/05/25 22:31 03/05/25 22:45 Temperature Pulse Rate 84 86 98 Respiratory Rate 18 20 28 H Blood Pressure 125/50 L Pulse Oximetry 93 98 96 Oxygen Delivery Oxygen Flow Rate 03/05/25 23:26 03/06/25 00:58 03/06/25 01:46 Temperature 98.5 F Pulse Rate 102 H 80 Respiratory Rate 24 H 18 Blood Pressure 103/44 L 102/54 L Pulse Oximetry 96 96 97 Oxygen Delivery Nasal Cannula Oxygen Flow Rate 3 03/06/25 06:00 Temperature 97.8 F Pulse Rate 78 Respiratory Rate 18 Blood Pressure 103/42 L Pulse Oximetry 97 Oxygen Delivery Oxygen Flow Rate Intake/Output Intake/Output: Intake & Output 03/03/25 03/04/25 03/05/25 03/06/25 23:59 23:59 23:59 23:59 Intake Total 1050 1300 Output Total 300 2200 Balance 750 -900 Meds/Results Medications: Active Medications Generic Name Dose Route Start Last Admin Trade Name Freq PRN Reason Stop Dose Admin Acetaminophen 650 mg 03/06/25 00:57 Acetaminophen 325 Mg Tablet PO Q4H PRN Pain 1-3 or fever Amlodipine Besylate 2.5 mg 03/06/25 09:00 Amlodipine Besylate 2.5 Mg Tablet PO DAILY [facility] Aspirin 81 mg 03/06/25 09:00 Aspirin 81 Mg Enteric Tablet PO QAM [facility] Celecoxib 100 mg 03/06/25 08:00 Celecoxib 100 Mg Capsule PO BIDWM [facility] Docusate Sodium 100 mg 03/06/25 00:57 Docusate Sodium 100 Mg Capsule PO DAILY PRN constipation Enoxaparin Sodium 30 mg 03/06/25 09:00 Enoxaparin 30 Mg/0.3 Ml Syringe SUB-Q DAILY [facility] Gabapentin 300 mg 03/06/25 09:00 Gabapentin 300 Mg Capsule PO TID [facility] Guaifenesin 1,200 mg 03/06/25 09:00 Guaifenesin 12 Hr 600 Mg Tabcr PO Q12HR [facility] Ceftriaxone Sodium 1 gm in 50 mls @ 100 mls/hr 03/06/25 21:00 Rocephin 1 Gm/Ns 50 Ml IVPB Q24H [facility] Doxycycline Hyclate 100 mg in 100 mls @ 100 mls/hr 03/06/25 10:00 Vibramycin 100 Mg/Ns 100 Ml IVPB Q12HR [facility] Levothyroxine Sodium 50 mcg 03/06/25 06:30 03/06/25 05:31 Levothyroxine Sodium 50 Mcg Tablet PO 50 mcg DAILY@0630 [facility] Administration Losartan Potassium 25 mg 03/06/25 09:00 Losartan Potassium 25 Mg Tablet PO DAILY [facility] Metoprolol Succinate 100 mg 03/06/25 09:00 Metoprolol Succinate Ext Rel 100 Mg Tabcr PO DAILY [facility] Radiology Results: ITS Impressions Chest X-Ray 03/05/25 22:24 IMPRESSION: Very prominent right hilum. Further evaluation advised. Vague opacity in the right upper lobe which may be a nodule or granuloma. Possible atelectasis versus pneumonia in the right lung base. Chest CT 03/06/25 05:13 Impression: Acute pneumonia in the inferior right lower lobe. Findings compatible with acute on chronic small airways infection scattered throughout both lungs, with extensive bronchiectatic change in the right middle lobe and lingula in particular, with additional scattered subcentimeter nodules present. Neoplastic disease felt to be less likely, though not completely excluded. Labs Labs: Laboratory Results - last 24 hr 03/05/25 03/05/25 03/06/25 21:33 21:41 00:22 WBC 13.1 H RBC 4.37 Hgb 14.0 Hct 42.9 MCV 98.2 MCH 32.0 MCHC 32.6 RDW 12.4 Plt Count 161 MPV 9.4 Immature Gran % (Auto) 0.5 Neut % (Auto) 92.6 H Lymph % (Auto) 3.0 L Borden % (Auto) 3.5 Eos % (Auto) 0.1 Baso % (Auto) 0.3 Lymph # (Auto) 0.40 L Borden # (Auto) 0.5 Eos # (Auto) 0.0 Baso # (Auto) 0.0 Abs Immat Gran (auto) 0.06 H Absolute Neuts (auto) 12.2 H Absolute Nucleated RBC 0.000 Band Neutrophils % Not Reportable Nucleated RBC % 0.0 Platelet Estimate Slightly decreased Hypochromasia 1+ Anisocytosis Schistocytes None seen PT 14.4 INR 1.1 APTT 35.0 VBG pH 7.407 H* VBG pCO2 40.7 L VBG pO2 < 27.0 L VBG HCO3 25.0 O2 Delivery Device Room air O2 Liters/Min Not Reportable FiO2 21 Sodium 133 L Potassium 4.6 Chloride 98 Carbon Dioxide 26 Anion Gap 9 BUN 38 H Creatinine 1.21 H Estim Creat Clear Calc 28 Estimated GFR 43 L Glucose 103 POC Capillary Glucose 102 Lactic Acid 1.6 Calcium 9.0 Phosphorus 3.8 Magnesium 2.0 Total Bilirubin 0.8 AST 24 ALT 14 Alkaline Phosphatase 77 Troponin I < 0.012 < 0.012 NT-Pro-B Natriuret Pep 1130 H Total Protein 8.0 Albumin 4.1 Lipase 81 Procalcitonin 0.1 Urine Color Yellow Urine Appearance Clear Urine pH 6.0 Ur Specific Abbott 1.012 Urine Protein Negative Urine Glucose (UA) Negative Urine Ketones Negative Ur Blood (Man) 1+ H Urine Nitrate Negative Urine Bilirubin Negative Urine Urobilinogen 1.0 Leukocyte Esterase Rfl Negative Urine RBC 6-10 H Urine WBC 0-5 Ur Squamous Epith Cells None seen Urine Bacteria None seen Urine Casts 0-2 Nasal MRSA (PCR) Influenza A (RT-PCR) Negative Influenza B (RT-PCR) Negative RSV (RT-PCR) Negative SARS-CoV-2 RNA (RT-PCR) Negative 03/06/25 03/06/25 01:54 05:43 WBC 21.5 H RBC 3.81 L Hgb 12.2 Hct 37.7 MCV 99.0 MCH 32.0 MCHC 32.4 RDW 12.8 Plt Count 161 MPV 9.5 Immature Gran % (Auto) 0.7 H Neut % (Auto) 86.9 H Lymph % (Auto) 5.1 L Borden % (Auto) 6.9 Eos % (Auto) 0.1 Baso % (Auto) 0.3 Lymph # (Auto) 1.09 Borden # (Auto) 1.5 H Eos # (Auto) 0.0 Baso # (Auto) 0.1 Abs Immat Gran (auto) 0.14 H Absolute Neuts (auto) 18.7 H Absolute Nucleated RBC 0.000 Band Neutrophils % Not Reportable Nucleated RBC % 0.0 Platelet Estimate Adequate Hypochromasia Anisocytosis 1+ Schistocytes None seen PT INR APTT VBG pH VBG pCO2 VBG pO2 VBG HCO3 O2 Delivery Device O2 Liters/Min FiO2 Sodium 136 L Potassium 4.5 Chloride 105 Carbon Dioxide 26 Anion Gap 5 BUN 31 H Creatinine 0.90 Estim Creat Clear Calc 37 Estimated GFR 60 Glucose 99 POC Capillary Glucose Lactic Acid Calcium 8.4 Phosphorus Magnesium Total Bilirubin AST ALT Alkaline Phosphatase Troponin I NT-Pro-B Natriuret Pep Total Protein Albumin Lipase Procalcitonin Urine Color Urine Appearance Urine pH Ur Specific Abbott Urine Protein Urine Glucose (UA) Urine Ketones Ur Blood (Man) Urine Nitrate Urine Bilirubin Urine Urobilinogen Leukocyte Esterase Rfl Urine RBC Urine WBC Ur Squamous Epith Cells Urine Bacteria Urine Casts Nasal MRSA (PCR) Not detected Influenza A (RT-PCR) Influenza B (RT-PCR) RSV (RT-PCR) SARS-CoV-2 RNA (RT-PCR) Quality VTE Prophylaxis VTE prophylaxis: pharmacologic ordered (Lovenox 30 mg subQ daily.)
[2025-03-06] MEDS: ACETAMINOPHEN 325 MG TABLET 650 MG PO (10:16)
[2025-03-06] MEDS: guaiFENesin 12 HR 600 MG TABCR 1200 MG PO ×2 (10:17→20:46)
[2025-03-06] MEDS: METOPROLOL SUCCINATE EXT REL 100 MG TABCR PO (10:17)
[2025-03-06] MEDS: GABAPENTIN 300 MG CAPSULE PO ×2 (10:17→17:26)
[2025-03-06] MEDS: LOSARTAN POTASSIUM 25 MG TABLET PO (10:17)
[2025-03-06] MEDS: ENOXAPARIN 30 MG/0.3 ML SYRINGE SUB-Q (10:18)
[2025-03-06] MEDS: ASPIRIN 81 MG ENTERIC TABLET PO (10:18)
[2025-03-06] MEDS: DOXYCYCLINE 100 MG/NS 100 ML 100 MG/100 ML BAG IVPB ×2 (10:18→20:46)
[2025-03-06] MEDS: CELECOXIB 100 MG CAPSULE PO (10:18)
--- NOTE | 2025-03-06 17:31 | PM.CNPUL ---
Assessment and Plan Assessment and plan (1) Right lower lobe pneumonia: Qualifiers: Pneumonia type: due to unspecified organism Qualified Code(s): J18.9 - Pneumonia, unspecified organism Code(s): J18.9 - Pneumonia, unspecified organism Status: Acute Assessment and Plan: Patient with a history of bronchiectasis presents with acute respiratory symptoms consistent with a bacterial infection, leukocytosis and a chest x-ray and CT scan that show a focal right lower lobe infiltrate. 03/06/ The patient says she is doing much better. She feels 75-80% back to her normal. She has had no cough today. She has had minimal phlegm production. White blood cell count is 21.5. She is afebrile. Creatinine is 0.9. When I enter the room she was on 3 L nasal cannula saturations 98%. I turned her to room air and after 13 minutes her saturations were 90-91%. Plan: Patient is improved, oxygenation has improved. I will continue ceftriaxone and doxycycline, both day 2. I will send at respiratory pathogen panel look for alternative etiologies. Urine Legionella, urine pneumococcal and mycoplasma IgM are pending. Will follow with you. (2) Bronchiectasis: Qualifiers: Bronchiectasis type: with acute exacerbation Qualified Code(s): J47.1 - Bronchiectasis with (acute) exacerbation Code(s): J47.9 - Bronchiectasis, uncomplicated Status: Acute Assessment and Plan: Patient carries a history of bronchiectasis for 40 years and BARBARA treated for 2 years about 30 years ago. She had no symptoms up until about 9 months. She denies 5 chronic fevers, weight loss. Plan: I will since induced sputum q.day x3 4 mycobacterial. I will initiate a Cornet flutter valve to aid in expectoration. I will continue guaifenesin 1200 mg p.o. b.i.d.. I will send serologies for bronchiectasis. patient has tried Advair in the past and says that this did not improve her breathing. I will send total IgG, IgM, IgA, IgE, IgG subclass, Aspergillus IgG, Aspergillus IgE, GRAHAM screen and rheumatoid factor. History of Present Illness History of Present Illness Consult date: 03/06/25 Chief complaint: pna Narrative: 03/06/2025: This is a new pulmonary consult for pneumonia. 84-year-old with a history of moderate aortic stenosis, hypertension, bronchiectasis since age 32, BARBARA 30-40 years ago. Regarding patient's bronchiectasis she has had no breathing trouble in her life but then developed bronchitis yearly at age 32. She has been treated with multiple rounds of antibiotics. Regarding her BARBARA she was P you had treated by Dr. Joel 30-40 years ago and took multiple antibiotics for a tube out 2 years. She had many reactions and states she is allergic to ethambutol. Nine months ago the patient started expectorating phlegm 5-6 times in the 1st 2 hours after she wakes up. This was new for her. The phlegm is green and brown. She tried antibiotics but this did not help her. 03/05/2024: Patient returned from a family gathering and developed cold feelings, chills and rigors. She presented to the emergency room with a blood pressure 140/62, heart rate 106, respirations 16 and room air saturations 88%. White blood cell count was 13.1, creatinine was 1.21, her BNP was 1130, her troponins were negative. Her venous blood gas was 7.41/41 less than 27. Her MRSA swab was negative. Patient was started on ceftriaxone and doxycycline and guaifenesin 1200 p.o. b.i.d.. 03/06/ The patient says she is doing much better. She feels 75-80% back to her normal. She has had no cough today. She has had minimal phlegm production. White blood cell count is 21.5. She is afebrile. Creatinine is 0.9. When I enter the room she was on 3 L nasal cannula saturations 98%. I turned her to room air and after 13 minutes her saturations were 90-91%. DATA: CT Scan of the Chest without Contrast: Clinical Indication: Pneumonia Technique: Contiguous sections were acquired throughout the chest without intravenous contrast. Dose reduction technique was used on this scan by utilizing automated exposure control and iterative reconstruction technique. The dose-length product (DLP) was 157.08 mGy-cm. Findings: There is no evidence of any significant mediastinal, hilar or axillary lymphadenopathy. Calcified subcarinal and right hilar lymph nodes are present. There are atherosclerotic calcifications of aorta and coronary arteries. There is no evidence of pleural or pericardial effusion. There is extensive patchy consolidation at the inferior right lower lobe, compatible with acute pneumonia. There is bronchiectatic change and scarring at the right middle lobe and lingula with scattered tree-in-bud opacities. There are a few additional areas of grouped nodules in the right lower lobe and right upper lobe, with nodules measuring up to 9 mm, most compatible small airways infectious process or small impacted airways. There are a few scattered subcentimeter nodules in the left lower lobe as well. Images through the upper abdomen reveal no abnormalities. Impression: Acute pneumonia in the inferior right lower lobe. Findings compatible with acute on chronic small airways infection scattered throughout both lungs, with extensive bronchiectatic change in the right middle lobe and lingula in particular, with additional scattered subcentimeter nodules present. Neoplastic disease felt to be less likely, though not completely excluded. Review of Systems Constitutional: Constitutional: Reports no additional constitutional complaints Eyes: Eyes: Reports no additional eye complaints ENT: Reports system reviewed and no additional complaints, except as documented Cardiovascular: Cardiovascular: Reports no additional cardiovascular complaints Respiratory: Respiratory: Reports no additional respiratory complaints Gastrointestinal: Gastrointestinal: Reports no additional gastrointestinal complaints Musculoskeletal: Musculoskeletal: Reports no additional musculoskeletal complaints Neurologic: Reports system reviewed and no additional complaints, except as documented Psychiatric: Psychiatric: Reports no additional psychiatric complaints Endocrine: Endocrine: Reports no additional endocrine complaints Hematologic/Lymphatic: Hematologic/Lymphatic: Reports no additional hematologic/lymphatic complaints Allergic/Immunologic: Allergic/Immunologic: Reports no additional allergic/immunologic complaints [facility] Past Medical History Medical History (Updated 03/06/25 @ 01:34 by Jessa Cunha DO) Osteoporosis Moderate aortic stenosis With echocardiogram August 2024 demonstrating EF of 54%, normal diastolic function, mild mitral valve regurgitation, moderate aortic stenosis with valve area 1.3 cm2 and velocity of 22 and mild tricuspid regurgitation Bronchiectasis Osteoarthritis Hypothyroidism TSH 2.November Essential hypertension Surgical History Surgical History (Updated 03/06/25 @ 01:19 by Jessa Cunha DO) History of esophageal hernia repair History of right hip replacement History of right shoulder replacement History of total bilateral knee replacement History of vaginal hysterectomy (~2001) Family History Family History (Updated 03/06/25 @ 01:20 by Jessa Cunha DO) Mother CHF (congestive heart failure) Father Parkinson disease CAD (coronary artery disease) Sibling Heart disease Son , 1 of her 3 sons Muscular dystrophy Social History Social History (Updated 03/06/25 @ 01:23 by Jessa Cunha DO) Social History: The patient lives in her own home. She had 3 sons 2 of which are still living. Code status: No CPR (the patient states that she would be okay with being intubated for a few days if she needed 2 to help her breathing but she would not want to be intubated for long-term. She states that if her heart were to stop she would want to be allowed a natural ) Healthcare power of trade mark attorney: Mandeep (oldest son) Smoking status: Never smoker Alcohol intake: never Substance use: never Do You Feel Safe in your Home?: Yes Lack of Transportation: No Lack of Food: Never True Current Housing: I Have Housing Concerned About Future Housing: No Difficulty Paying Gas/Electric Bills: No Difficulty Paying for Meds: No Currently Unemployed: No Education: High School Diploma/GED Difficulty w/ Childcare or Family Care: No Spiritual care concerns: No Meds Home Medications and Allergies Home Medications Medication Instructions Recorded Confirmed Type amlodipine 10 mg tablet 2.5 mg PO DAILY 03/05/25 03/06/25 History celecoxib 100 mg capsule 100 mg PO BIDWMEAL 03/05/25 03/06/25 History furosemide 20 mg tablet 20 mg PO .qod 03/05/25 03/06/25 History gabapentin 300 mg capsule 300 mg PO TID 03/05/25 03/06/25 History levothyroxine 50 mcg tablet 50 mcg PO DAILY 03/05/25 03/06/25 History losartan 25 mg tablet 25 mg PO DAILY 03/05/25 03/06/25 History metoprolol succinate 100 mg 100 mg PO DAILY 03/05/25 03/06/25 History tablet,extended release 24 hr acetaminophen 325 mg capsule 650 mg PO .q8hr PRN fever or pain 03/06/25 03/06/25 History aspirin 81 mg tablet 81 mg PO DAILY 03/06/25 03/06/25 History docusate sodium 100 mg capsule 100 mg PO DAILY PRN constipation 03/06/25 03/06/25 History Allergies Allergy/AdvReac Type Severity Reaction Status Date / Time Sulfa (Sulfonamide Allergy Mild Hives Verified 03/05/25 23:19 Antibiotics) euthambutal Allergy Mild Hives Uncoded 03/05/25 20:54 Vital Signs Vital Signs - 24 hr 03/05/25 20:46 03/05/25 20:50 03/05/25 20:52 Temperature 37.3 C Pulse Rate 106 H 107 H 109 H Respiratory Rate 16 12 22 H Blood Pressure 140/62 140/62 Pulse Oximetry 92 93 Oxygen Delivery Room Air Oxygen Flow Rate 03/05/25 20:57 03/05/25 20:58 03/05/25 21:00 Temperature Pulse Rate 87 90 Respiratory Rate 19 20 24 H Blood Pressure 140/62 Pulse Oximetry 93 92 92 Oxygen Delivery Oxygen Flow Rate 03/05/25 21:01 03/05/25 21:15 03/05/25 21:30 Temperature Pulse Rate 94 97 89 Respiratory Rate 20 20 21 H Blood Pressure 132/81 Pulse Oximetry 92 90 91 Oxygen Delivery Oxygen Flow Rate 03/05/25 21:31 03/05/25 21:45 03/05/25 22:00 Temperature Pulse Rate 90 81 90 Respiratory Rate 29 H 28 H 16 Blood Pressure 111/51 L Pulse Oximetry 91 Oxygen Delivery Oxygen Flow Rate 03/05/25 22:01 03/05/25 22:25 03/05/25 22:25 Temperature Pulse Rate 89 85 Respiratory Rate 29 H 25 H Blood Pressure 128/51 L 121/48 L Pulse Oximetry 91 96 88 L Oxygen Delivery Nasal Cannula Oxygen Flow Rate 3 03/05/25 22:30 03/05/25 22:31 03/05/25 22:45 Temperature Pulse Rate 84 86 98 Respiratory Rate 18 20 28 H Blood Pressure 125/50 L Pulse Oximetry 93 98 96 Oxygen Delivery Oxygen Flow Rate 03/05/25 23:26 03/06/25 00:58 03/06/25 01:46 Temperature 36.9 C Pulse Rate 102 H 80 Respiratory Rate 24 H 18 Blood Pressure 103/44 L 102/54 L Pulse Oximetry 96 96 97 Oxygen Delivery Nasal Cannula Oxygen Flow Rate 3 03/06/25 06:00 03/06/25 10:10 03/06/25 10:15 Temperature 36.6 C Pulse Rate 78 70 Respiratory Rate 18 Blood Pressure 103/42 L 114/65 Pulse Oximetry 97 97 Oxygen Delivery Nasal Cannula Oxygen Flow Rate 3 03/06/25 10:17 03/06/25 13:52 03/06/25 15:31 Temperature 36.6 C Pulse Rate 70 69 Respiratory Rate 16 Blood Pressure 104/58 L Pulse Oximetry 97 Oxygen Delivery Nasal Cannula Oxygen Flow Rate 3 Exam Const: General: cooperative, healthy appearing and comfortable Orientation/consciousness: oriented to person, oriented to place and oriented to time HENMT: Head: normal to inspection Ears: hearing grossly normal bilaterally Eyes: General: appearance normal, both eyes and all related structures Neck: Neck: normal visual inspection Chest: Chest palpation & inspection: normal inspection of the chest Resp: Effort & Inspection: normal respiratory effort and able to speak in complete sentences Auscultation: crackles, no rales, no rhonchi, no wheezes and lung sounds not diminished Other: bases Cardio: Jugular venous distension: no JVD GI: Inspection: normal to inspection GI Palp: No abdominal tenderness Skin: General skin exam: normal color Neuro: General: oriented to person, oriented to place and oriented to time Extrem: General: normal to inspection and edema Psych: Appearance: grossly normal Results Laboratory Findings 03/06/25 05:43 03/06/25 05:43 ABG, PT/INR, D-dimer: PT/INR, D-dimer PT 14.4 Seconds (11.1-14.7) 03/05/25 21:33 INR 1.1 03/05/25 21:33 Abnormal lab findings: Abnormal Labs 03/05/25 03/05/25 03/06/25 21:33 21:41 05:43 WBC 13.1 H 21.5 H RBC 3.81 L Immature Gran % (Auto) 0.7 H Neut % (Auto) 92.6 H 86.9 H Lymph % (Auto) 3.0 L 5.1 L Lymph # (Auto) 0.40 L Story # (Auto) 1.5 H Abs Immat Gran (auto) 0.06 H 0.14 H Absolute Neuts (auto) 12.2 H 18.7 H VBG pH 7.407 H* VBG pCO2 40.7 L VBG pO2 < 27.0 L Sodium 133 L 136 L BUN 38 H 31 H Creatinine 1.21 H Estimated GFR 43 L NT-Pro-B Natriuret Pep 1130 H Ur Blood (Man) 1+ H Urine RBC 6-10 H Diagnostic Findings Additional studies: ITS Impressions Chest X-Ray 03/05/25 22:24 IMPRESSION: Very prominent right hilum. Further evaluation advised. Vague opacity in the right upper lobe which may be a nodule or granuloma. Possible atelectasis versus pneumonia in the right lung base. Chest CT 03/06/25 05:13 Impression: Acute pneumonia in the inferior right lower lobe. Findings compatible with acute on chronic small airways infection scattered throughout both lungs, with extensive bronchiectatic change in the right middle lobe and lingula in particular, with additional scattered subcentimeter nodules present. Neoplastic disease felt to be less likely, though not completely excluded.
[2025-03-07] MEDS: SODIUM CHLOR 3% 15 ML NEB (RESPIRATORY THERAPY) 6 ML INHALATION (04:30)
[2025-03-07] MEDS: LEVOTHYROXINE SODIUM 50 MCG TABLET PO (05:29)
[2025-03-07 05:31] LABS: Basophils Percent Auto 0.3 % (0.2-1.2); Eosinophils Absolute Auto 0.2 K/mm3 (0-0.3); Eosinophils Percent Auto 1.4 % (0-4.4); Hematocrit 37.4 % (37.0-47.0); Hemoglobin 11.9 g/dL (12.0-15.0); Immature Granulocyte Absolute 0.06 K/mm3 (0.00-0.031); Immature Granulocyte Percent A 0.5 % (0-0.5); Lymphocytes Absolute Auto 0.98 K/mm3 (0.9-3.2); Lymphocytes Percent Auto 8.1 % (18.3-44.2); Mean Corpuscular HGB Conc 31.8 g/dl (32-36); Mean Corpuscular Hemoglobin 32.1 pg (26-34); Mean Corpuscular Volume 100.8 fl (80-100); Mean Platelet Volume 9.5 fl (7.4-10.4); Monocytes Absolute Auto 0.7 K/mm3 (0.1-0.6); Monocytes Percent Auto 5.6 % (2.6-8.5); Neutrophils Absolute Auto 10.2 K/mm3 (1.3-6.7); Neutrophils Percent Auto 84.1 % (45.5-73.1); Platelet Count Result 146 k/mm3 (150-375); Red Blood Count 3.71 M/mm3 (4.2-5.4); Red Cell Distribution Width 12.7 % (11.5-14.5); White Blood Count 12.1 K/mm3 (4.5-10.0)
[2025-03-07 06:00] VITALS: BP 141/60; PULSE 66; RESP 16; TEMP 36.2; O2SAT 95
[2025-03-07 06:01] LABS: Alanine Aminotransferase 10 U/L (6-35); Albumin Level 3.4 g/dL (3.5-5.1); Alkaline Phosphatase 68 U/L (38-126); Anion Gap 6 mmol/L (4-12); Aspartate Amino Transferase 20 U/L (14-36); Bilirubin,Total 0.6 mg/dL (0.2-1.3); Blood Urea Nitrogen 23 mg/dL (7-17); Calcium 8.6 mg/dL (8.4-10.2); Carbon Dioxide 25 mmol/L (22-30); Chloride 107 mmol/L (98-107); Estimated CRCL calculation 41 ml/min; Estimated Glomerular Filt Rate > 60; Glucose 79 mg/dL (65-110); Potassium 3.9 mmol/L (3.4-5.0); Sodium 138 mmol/L (137-145)
[2025-03-07 06:07] LABS: Immunoglobulin A 234 mg/dL (70-400); Immunoglobulin G 1173 mg/dL (700-1600); Immunoglobulin M 68 mg/dL (40-230)
[2025-03-07 06:13] LABS: Rheumatoid Factor 13.5 IU/ML (<12)
[2025-03-07 08:00] VITALS: PULSE 73; RESP 16; O2SAT 95
[2025-03-07] MEDS: CELECOXIB 100 MG CAPSULE PO (08:56)
[2025-03-07] MEDS: ASPIRIN 81 MG ENTERIC TABLET PO (08:56)
[2025-03-07 08:57] VITALS: PULSE 73
[2025-03-07] MEDS: GABAPENTIN 300 MG CAPSULE PO ×2 (08:57→18:08)
[2025-03-07] MEDS: LOSARTAN POTASSIUM 25 MG TABLET PO (08:57)
[2025-03-07] MEDS: METOPROLOL SUCCINATE EXT REL 100 MG TABCR PO (08:57)
[2025-03-07] MEDS: guaiFENesin 12 HR 600 MG TABCR 1200 MG PO ×2 (08:57→20:35)
[2025-03-07] MEDS: DOXYCYCLINE 100 MG/NS 100 ML 100 MG/100 ML BAG IVPB ×2 (08:59→20:36)
[2025-03-07] MEDS: ACETAMINOPHEN 325 MG TABLET 650 MG PO ×2 (09:00→23:32)
[2025-03-07] MEDS: ENOXAPARIN 40 MG/0.4 ML SYRINGE SUB-Q (09:05)
--- NOTE | 2025-03-07 09:57 | PM.PNPUL ---
Progress Note: A&P Assessment and Plan (1) Right lower lobe pneumonia: Qualifiers: Pneumonia type: due to unspecified organism Qualified Code(s): J18.9 - Pneumonia, unspecified organism Code(s): J18.9 - Pneumonia, unspecified organism Status: Acute Assessment and Plan: Patient with a history of bronchiectasis presents with acute respiratory symptoms consistent with a bacterial infection, leukocytosis and a chest x-ray and CT scan that show a focal right lower lobe infiltrate. The patient says she is doing much better. She feels 75-80% back to her normal. She has had no cough today. She has had minimal phlegm production. White blood cell count is 21.5. She is afebrile. Creatinine is 0.9. When I enter the room she was on 3 L nasal cannula saturations 98%. I turned her to room air and after 13 minutes her saturations were 90-91%. Plan: Patient is improved, oxygenation has improved. I will continue ceftriaxone and doxycycline, both day 2. I will send at respiratory pathogen panel look for alternative etiologies. Urine Legionella, urine pneumococcal and mycoplasma IgM are pending. 03/07/2025: Patient is improved. Patient tells me she is breathing back to her normal. Her cough is normal. She has more phlegm than normal and she expectorated while I was at the bed side and this was thick dark green phlegm with no blood. Currently the patient is on room air with saturations 94%. White blood cell count 12.1. Patient is afebrile. Creatinine 0.8. Plan: Continue ceftriaxone and doxycycline, both day 3. Respiratory pathogen, urine Legionella, urine pneumococcal and mycoplasma IgM are pending. Will follow with you. (2) Bronchiectasis: Qualifiers: Bronchiectasis type: with acute exacerbation Qualified Code(s): J47.1 - Bronchiectasis with (acute) exacerbation Code(s): J47.9 - Bronchiectasis, uncomplicated Status: Acute Assessment and Plan: Patient carries a history of bronchiectasis for 40 years and BARBARA treated for 2 years about 30 years ago. She had no symptoms up until about 9 months. She denies 5 chronic fevers, weight loss. 03/06/25: Plan: I will since induced sputum q.day x3 4 mycobacterial. I will initiate a Cornet flutter valve to aid in expectoration. I will continue guaifenesin 1200 mg p.o. b.i.d.. I will send serologies for bronchiectasis. patient has tried Advair in the past and says that this did not improve her breathing. I will send total IgG, IgM, IgA, IgE, IgG subclass, Aspergillus IgG, Aspergillus IgE, GRAHAM screen and rheumatoid factor. 03/06/25: Rheumatoid factor is 13.5, normal less than 12, IgA is normal, IgM is normal. GRAHAM, anti CCP, aspergillus titers IgE and IgG subclasses pending. 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 Joel 30-40 years ago and took multiple antibiotics for a tube out 2 years. She had many reactions and states she is allergic to ethambutol. 03/06/25: I will order sputum for AFB x3 03/07/25: Sputum for AFB x1 collected Subjective Date/time seen: 03/07/25 09:57 Interval history: 03/06/2025: This is a new pulmonary consult for pneumonia. 84-year-old with a history of moderate aortic stenosis, hypertension, bronchiectasis since age 32, BARBARA 30-40 years ago. Regarding patient's bronchiectasis she has had no breathing trouble in her life but then developed bronchitis yearly at age 32. She has been treated with multiple rounds of antibiotics. Regarding her BARBARA she was P you had treated by Dr. Joel 30-40 years ago and took multiple antibiotics for a tube out 2 years. She had many reactions and states she is allergic to ethambutol. Nine months ago the patient started expectorating phlegm 5-6 times in the 1st 2 hours after she wakes up. This was new for her. The phlegm is green and brown. She tried antibiotics but this did not help her. 03/05/2024: Patient returned from a family gathering and developed cold feelings, chills and rigors. She presented to the emergency room with a blood pressure 140/62, heart rate 106, respirations 16 and room air saturations 88%. White blood cell count was 13.1, creatinine was 1.21, her BNP was 1130, her troponins were negative. Her venous blood gas was 7.41/41 less than 27. Her MRSA swab was negative. Patient was started on ceftriaxone and doxycycline and guaifenesin 1200 p.o. b.i.d.. The patient says she is doing much better. She feels 75-80% back to her normal. She has had no cough today. She has had minimal phlegm production. White blood cell count is 21.5. She is afebrile. Creatinine is 0.9. When I enter the room she was on 3 L nasal cannula saturations 98%. I turned her to room air and after 13 minutes her saturations were 90-91%. 03/07/2025: Patient is improved. Patient tells me she is breathing back to her normal. Her cough is normal. She has more phlegm than normal and she expectorated while I was at the bed side and this was thick dark green phlegm with no blood. Currently the patient is on room air with saturations 94%. White blood cell count 12.1. Patient is afebrile. Creatinine 0.8. DATA: CT Scan of the Chest without Contrast: Clinical Indication: Pneumonia Technique: Contiguous sections were acquired throughout the chest without intravenous contrast. Dose reduction technique was used on this scan by utilizing automated exposure control and iterative reconstruction technique. The dose-length product (DLP) was 157.08 mGy-cm. Findings: There is no evidence of any significant mediastinal, hilar or axillary lymphadenopathy. Calcified subcarinal and right hilar lymph nodes are present. There are atherosclerotic calcifications of aorta and coronary arteries. There is no evidence of pleural or pericardial effusion. There is extensive patchy consolidation at the inferior right lower lobe, compatible with acute pneumonia. There is bronchiectatic change and scarring at the right middle lobe and lingula with scattered tree-in-bud opacities. There are a few additional areas of grouped nodules in the right lower lobe and right upper lobe, with nodules measuring up to 9 mm, most compatible small airways infectious process or small impacted airways. There are a few scattered subcentimeter nodules in the left lower lobe as well. Images through the upper abdomen reveal no abnormalities. Impression: Acute pneumonia in the inferior right lower lobe. Findings compatible with acute on chronic small airways infection scattered throughout both lungs, with extensive bronchiectatic change in the right middle lobe and lingula in particular, with additional scattered subcentimeter nodules present. Neoplastic disease felt to be less likely, though not completely excluded. Review of Systems Constitutional: Constitutional: Reports no additional constitutional complaints Eyes: Eyes: Reports no additional eye complaints ENT: Reports system reviewed and no additional complaints, except as documented Cardiovascular: Cardiovascular: Reports no additional cardiovascular complaints Respiratory: Respiratory: Reports no additional respiratory complaints Gastrointestinal: Gastrointestinal: Reports no additional gastrointestinal complaints Musculoskeletal: Musculoskeletal: Reports no additional musculoskeletal complaints Neurologic: Reports system reviewed and no additional complaints, except as documented Psychiatric: Psychiatric: Reports no additional psychiatric complaints Endocrine: Endocrine: Reports no additional endocrine complaints Hematologic/Lymphatic: Hematologic/Lymphatic: Reports no additional hematologic/lymphatic complaints Allergic/Immunologic: Allergic/Immunologic: Reports no additional allergic/immunologic complaints Exam Const: General: cooperative, healthy appearing and comfortable Orientation/consciousness: oriented to person, oriented to place and oriented to time HENMT: Head: normal to inspection Ears: hearing grossly normal bilaterally Eyes: General: appearance normal, both eyes and all related structures Neck: Neck: normal visual inspection Chest: Chest palpation & inspection: normal inspection of the chest Resp: Effort & Inspection: normal respiratory effort and able to speak in complete sentences Auscultation: crackles, no rales, no rhonchi, no wheezes and lung sounds not diminished Other: bases Cardio: Jugular venous distension: no JVD GI: Inspection: normal to inspection Skin: General skin exam: normal color Neuro: General: oriented to person, oriented to place and oriented to time Extrem: General: normal to inspection and edema Psych: Appearance: grossly normal Objective Data Vital Signs Vital Signs: Vital Signs - 24 hr 03/06/25 10:10 03/06/25 10:15 03/06/25 10:17 Temperature Pulse Rate 70 70 Respiratory Rate Blood Pressure 114/65 Pulse Oximetry 97 Oxygen Delivery Nasal Cannula Oxygen Flow Rate 3 Fraction of Inspired Oxygen 03/06/25 13:52 03/06/25 15:31 03/06/25 19:53 Temperature 36.6 C Pulse Rate 69 62 Respiratory Rate 16 20 Blood Pressure 104/58 L Pulse Oximetry 97 90 Oxygen Delivery Nasal Cannula Room Air Oxygen Flow Rate 3 Fraction of Inspired Oxygen 21 03/06/25 20:00 03/06/25 21:20 03/07/25 06:00 Temperature 36.4 C L 36.2 C L Pulse Rate 65 66 Respiratory Rate 16 16 Blood Pressure 117/56 L 141/60 H Pulse Oximetry 93 95 Oxygen Delivery Room Air Oxygen Flow Rate Fraction of Inspired Oxygen 03/07/25 08:57 Temperature Pulse Rate 73 Respiratory Rate Blood Pressure Pulse Oximetry Oxygen Delivery Oxygen Flow Rate Fraction of Inspired Oxygen Intake/Output Intake/Output: Intake & Output 03/04/25 03/05/25 03/06/25 03/07/25 23:59 23:59 23:59 23:59 Intake Total 1050 2600 700 Output Total 300 3000 1600 Balance 750 -400 -900 Meds/Results Medications: Active Medications Generic Name Dose Route Start Last Admin Trade Name Freq PRN Reason Stop Dose Admin Acetaminophen 650 mg 03/06/25 00:57 03/07/25 09:00 Acetaminophen 325 Mg Tablet PO 650 mg Q4H PRN Administration Pain 1-3 or fever Aspirin 81 mg 03/06/25 09:00 03/07/25 08:56 Aspirin 81 Mg Enteric Tablet PO 81 mg QAM KARLI Administration Celecoxib 100 mg 03/06/25 08:00 03/07/25 08:56 Celecoxib 100 Mg Capsule PO 100 mg BIDWM KARLI Administration Docusate Sodium 100 mg 03/06/25 00:57 Docusate Sodium 100 Mg Capsule PO DAILY PRN constipation Enoxaparin Sodium 40 mg 03/07/25 09:00 03/07/25 09:05 Enoxaparin 40 Mg/0.4 Ml Syringe SUB-Q 40 mg DAILY KARLI Administration Gabapentin 300 mg 03/06/25 09:00 03/07/25 08:57 Gabapentin 300 Mg Capsule PO 300 mg TID KARLI Administration Guaifenesin 1,200 mg 03/06/25 09:00 03/07/25 08:57 Guaifenesin 12 Hr 600 Mg Tabcr PO 1,200 mg Q12HR KARLI Administration Ceftriaxone Sodium 1 gm in 50 mls @ 100 mls/hr 03/06/25 21:00 03/06/25 21:16 Rocephin 1 Gm/Ns 50 Ml IVPB Infused Q24H KARLI Infusion Doxycycline Hyclate 100 mg in 100 mls @ 100 mls/hr 03/06/25 10:00 03/07/25 08:59 Vibramycin 100 Mg/Ns 100 Ml IVPB 100 mls/hr Q12HR KARLI Administration Levothyroxine Sodium 50 mcg 03/06/25 06:30 03/07/25 05:29 Levothyroxine Sodium 50 Mcg Tablet PO 50 mcg DAILY@0630 KARLI Administration Losartan Potassium 25 mg 03/06/25 09:00 03/07/25 08:57 Losartan Potassium 25 Mg Tablet PO 25 mg DAILY KARLI Administration Metoprolol Succinate 100 mg 03/06/25 09:00 03/07/25 08:57 Metoprolol Succinate Ext Rel 100 Mg Tabcr PO 100 mg DAILY KARLI Administration Sodium Chloride 6 ml 03/07/25 05:00 03/07/25 04:30 Sodium Chlor 3% 15 Ml Neb (Respiratory Therapy) INHALATION 03/09/25 05:01 6 ml DAILY@0500 KARLI Administration Radiology Results: ITS Impressions Chest X-Ray 03/05/25 22:24 IMPRESSION: Very prominent right hilum. Further evaluation advised. Vague opacity in the right upper lobe which may be a nodule or granuloma. Possible atelectasis versus pneumonia in the right lung base. Chest CT 03/06/25 05:13 Impression: Acute pneumonia in the inferior right lower lobe. Findings compatible with acute on chronic small airways infection scattered throughout both lungs, with extensive bronchiectatic change in the right middle lobe and lingula in particular, with additional scattered subcentimeter nodules present. Neoplastic disease felt to be less likely, though not completely excluded. Labs Labs: Laboratory Results - last 24 hr 03/07/25 03/07/25 03/07/25 05:15 05:22 05:23 WBC 12.1 H RBC 3.71 L Hgb 11.9 L Hct 37.4 MCV 100.8 H MCH 32.1 MCHC 31.8 L RDW 12.7 Plt Count 146 L MPV 9.5 Immature Gran % (Auto) 0.5 Neut % (Auto) 84.1 H Lymph % (Auto) 8.1 L Travis % (Auto) 5.6 Eos % (Auto) 1.4 Baso % (Auto) 0.3 Lymph # (Auto) 0.98 Travis # (Auto) 0.7 H Eos # (Auto) 0.2 Baso # (Auto) 0.0 Abs Immat Gran (auto) 0.06 H Absolute Neuts (auto) 10.2 H Absolute Nucleated RBC 0.000 Nucleated RBC % 0.0 Sodium 138 Potassium 3.9 Chloride 107 Carbon Dioxide 25 Anion Gap 6 BUN 23 H Creatinine 0.80 Estim Creat Clear Calc 41 Estimated GFR > 60 Glucose 79 Calcium 8.6 Total Bilirubin 0.6 AST 20 ALT 10 Alkaline Phosphatase 68 Total Protein 6.0 L Albumin 3.4 L Immunocap Total IgE Cancelled IgG 1173 IgA 234 IgM 68 Rheumatoid Factor 13.5 Rheumatoid Factor Scrn Cancelled Rheumatoid Factor Titer Cancelled
[2025-03-07 14:00] VITALS: BP 141/66; PULSE 64; RESP 16; TEMP 36.1; O2SAT 94
--- NOTE | 2025-03-07 15:27 | PM.IMPN ---
Progress Note: A&P Assessment and Plan (1) Acute hypoxic respiratory failure: Code(s): J96.01 - Acute respiratory failure with hypoxia Status: Acute (2) Sepsis: Qualifiers: Acute respiratory failure type: with hypoxia Sepsis acute organ dysfunction status: with acute organ dysfunction Sepsis type: sepsis due to unspecified organism Severe sepsis acute organ dysfunction type: acute respiratory failure Severe sepsis shock status: without septic shock Qualified Code(s): A41.9 - Sepsis, unspecified organism; R65.20 - Severe sepsis without septic shock; J96.01 - Acute respiratory failure with hypoxia Code(s): A41.9 - Sepsis, unspecified organism Status: Acute (3) Right lower lobe pneumonia: Qualifiers: Pneumonia type: due to unspecified organism Qualified Code(s): J18.9 - Pneumonia, unspecified organism Code(s): J18.9 - Pneumonia, unspecified organism Status: Acute (4) Bronchiectasis: Qualifiers: Bronchiectasis type: with acute exacerbation Qualified Code(s): J47.1 - Bronchiectasis with (acute) exacerbation Code(s): J47.9 - Bronchiectasis, uncomplicated Status: Acute Plan The patient presents with sepsis due to right lower lobe pneumonia complicating chronic bronchiectasis and resulting in acute hypoxic respiratory failure. The blood cultures were obtained and are pending. Patient was started on empiric antibiotic therapy with Rocephin and doxycycline on 03/05 - MRSA PCR was checked and negative. - Patient received 30 mL/kilos bolus in the ER - The patient does have known history of bronchiectasis and what sounds like Mycobacterium avium complex. She has long history of dyspnea on exertion and productive cough. She would like referral to construction project coordinator. -Patient did develop hypoxic respiratory failure and is on nasal cannula - wean O2 as tolerated - Will encourage good pulmonary toilet with Acapella and provide mucolytic therapy with Mucinex. Given the patient's history of moderate aortic stenosis in the fact the patient appears intervascular volume repleted will off on any further additional fluids at this time - monitor strict I&O's and daily weights - hold patient's home Lasix that is usually every other day (last taken 03/04/2025). -pulm consulted -Patient does have chronic kidney disease but BUN and creatinine appears to be near baseline - trend daily CBC and BMP Chronic HTN- reviewed and some hypotensive reading -will stop amlodipine 2.5 (on 03/06) may need to de escalate metoprolol or losartan (on losartan 25 now and metoprolol 100) monitor closely 03/07 pt feeling better wbc trending down 21.5->12.1 today -pulm is folloing Continue ceftriaxone and doxycycline, both day 3. Respiratory pathogen, urine Legionella, urine pneumococcal and mycoplasma IgM are pending. Subjective Date/time seen: 03/07/25 15:27 Interval history: 84-year-old female with a past medical history of bronchiectasis, mycobacterium avium complex about 40 years ago, moderate aortic stenosis, essential hypertension, chronic kidney disease stage 3 with baseline creatinine 1.1, essential hypertension chronic lower extremity edema with use of compression socks and chronic pain who admitted from home via EMS complaining of not feeling well and chills. After the patient received 1 L normal saline bolus in the ER she did develop some hypoxia-oxygen saturations dropped to 85% on room air. She was placed on 3 L nasal cannula. On arrival to the ER the patient had a temperature of 99° and was mildly tachycardic with some mild tachypnea. Sepsis workup demonstrated leukocytosis, right lower lobe pneumonia on noncontrast CT scan of the chest with evidence of bronchiectasis, VBG demonstrated respiratory alkalosis with hypoxemia and BMP demonstrated mild hyponatremia with BUN of 38 and creatinine of 1.21. Labs from outside facility were reviewed and demonstrated elevated MCV but normal hemoglobin at 13.6, the patient's baseline creatinine is 1.16 Pt is seen and examined. She is off oxygen now, still feeling sob and coughing but a bit better. Pulmonology saw her. Review of Systems Review of Systems: All systems reviewed & are unremarkable except as noted in HPI and below Exam Narrative: Weight 63 kg BMI 23.8 Const: General: comfortable Other: Mildly ill-appearing, well-developed well-nourished, appears stated age HENMT: Other: Mucous membranes are moist, no oral pharyngeal erythema, fair dentition, nasal cannula in place Eyes: Other: Pupils are equal and reactive, no conjunctival pallor, no scleral icterus Neck: Other: No JVD, no lymphadenopathy Resp: Other: Rhonchi bilateral lung jones anteriorly, crackles at the bilateral bases right greater than left Cardio: Other: Mild sinus tachycardia, 2+ bilateral radial pedal pulses, 3/6 systolic murmur heard best at the left sternal border GI: Other: Soft, nontender, nondistended, normoactive bowel sounds, no hepatosplenomegaly Skin: Other: Generalized pallor, warm to touch Neuro: Other: Alert oriented x4, speech is clear, no facial asymmetry, no localizing neurologic deficits noted during the course of conversation Extrem: Other: Bilateral lower extremity edema nonpitting left greater than right (patient reports this is chronic), moves all extremities equally, 5/5 strength bilateral design center consultant and bilateral plantar flexion Psych: Other: Appropriate mood and affect, pleasant and cooperative, judgment and insight intact Objective Data Vital Signs Vital Signs: Vital Signs - 24 hr 03/06/25 15:31 03/06/25 19:53 03/06/25 20:00 Temperature Pulse Rate 62 Respiratory Rate 20 Blood Pressure Pulse Oximetry 90 Oxygen Delivery Nasal Cannula Room Air Room Air Oxygen Flow Rate 3 Fraction of Inspired Oxygen 21 03/06/25 21:20 03/07/25 06:00 03/07/25 08:00 Temperature 97.5 F L 97.1 F L Pulse Rate 65 66 73 Respiratory Rate 16 16 16 Blood Pressure 117/56 L 141/60 H Pulse Oximetry 93 95 95 Oxygen Delivery Room Air Oxygen Flow Rate Fraction of Inspired Oxygen 03/07/25 08:57 03/07/25 09:00 Temperature Pulse Rate 73 Respiratory Rate Blood Pressure Pulse Oximetry Oxygen Delivery Room Air Oxygen Flow Rate Fraction of Inspired Oxygen Intake/Output Intake/Output: Intake & Output 03/04/25 03/05/25 03/06/25 03/07/25 23:59 23:59 23:59 23:59 Intake Total 1050 2600 940 Output Total 300 3000 1600 Balance 750 400 -316 Meds/Results Medications: Active Medications Generic Name Dose Route Start Last Admin Trade Name Freq PRN Reason Stop Dose Admin Acetaminophen 650 mg 03/06/25 00:57 03/07/25 09:00 Acetaminophen 325 Mg Tablet PO 650 mg Q4H PRN Administration Pain 1-3 or fever Aspirin 81 mg 03/06/25 09:00 03/07/25 08:56 Aspirin 81 Mg Enteric Tablet PO 81 mg QAM KARLI Administration Celecoxib 100 mg 03/06/25 08:00 03/07/25 08:56 Celecoxib 100 Mg Capsule PO 100 mg BIDWM KARLI Administration Docusate Sodium 100 mg 03/06/25 00:57 Docusate Sodium 100 Mg Capsule PO DAILY PRN constipation Enoxaparin Sodium 40 mg 03/07/25 09:00 03/07/25 09:05 Enoxaparin 40 Mg/0.4 Ml Syringe SUB-Q 40 mg DAILY KARLI Administration Gabapentin 300 mg 03/07/25 17:00 Gabapentin 300 Mg Capsule PO BID KARLI Guaifenesin 1,200 mg 03/06/25 09:00 03/07/25 08:57 Guaifenesin 12 Hr 600 Mg Tabcr PO 1,200 mg Q12HR KARLI Administration Ceftriaxone Sodium 1 gm in 50 mls @ 100 mls/hr 03/06/25 21:00 03/06/25 21:16 Rocephin 1 Gm/Ns 50 Ml IVPB Infused Q24H KARLI Infusion Doxycycline Hyclate 100 mg in 100 mls @ 100 mls/hr 03/06/25 10:00 03/07/25 08:59 Vibramycin 100 Mg/Ns 100 Ml IVPB 100 mls/hr Q12HR KARLI Administration Levothyroxine Sodium 50 mcg 03/06/25 06:30 03/07/25 05:29 Levothyroxine Sodium 50 Mcg Tablet PO 50 mcg DAILY@0630 KARLI Administration Losartan Potassium 25 mg 03/06/25 09:00 03/07/25 08:57 Losartan Potassium 25 Mg Tablet PO 25 mg DAILY KARLI Administration Metoprolol Succinate 100 mg 03/06/25 09:00 03/07/25 08:57 Metoprolol Succinate Ext Rel 100 Mg Tabcr PO 100 mg DAILY KARLI Administration Sodium Chloride 6 ml 03/07/25 05:00 03/07/25 04:30 Sodium Chlor 3% 15 Ml Neb (Respiratory Therapy) INHALATION 03/09/25 05:01 6 ml DAILY@0500 KARLI Administration Radiology Results: ITS Impressions Chest X-Ray 03/05/25 22:24 IMPRESSION: Very prominent right hilum. Further evaluation advised. Vague opacity in the right upper lobe which may be a nodule or granuloma. Possible atelectasis versus pneumonia in the right lung base. Chest CT 03/06/25 05:13 Impression: Acute pneumonia in the inferior right lower lobe. Findings compatible with acute on chronic small airways infection scattered throughout both lungs, with extensive bronchiectatic change in the right middle lobe and lingula in particular, with additional scattered subcentimeter nodules present. Neoplastic disease felt to be less likely, though not completely excluded. Labs Labs: Laboratory Results - last 24 hr 03/07/25 03/07/25 03/07/25 05:15 05:22 05:23 WBC 12.1 H RBC 3.71 L Hgb 11.9 L Hct 37.4 MCV 100.8 H MCH 32.1 MCHC 31.8 L RDW 12.7 Plt Count 146 L MPV 9.5 Immature Gran % (Auto) 0.5 Neut % (Auto) 84.1 H Lymph % (Auto) 8.1 L Brewster % (Auto) 5.6 Eos % (Auto) 1.4 Baso % (Auto) 0.3 Lymph # (Auto) 0.98 Brewster # (Auto) 0.7 H Eos # (Auto) 0.2 Baso # (Auto) 0.0 Abs Immat Gran (auto) 0.06 H Absolute Neuts (auto) 10.2 H Absolute Nucleated RBC 0.000 Nucleated RBC % 0.0 Sodium 138 Potassium 3.9 Chloride 107 Carbon Dioxide 25 Anion Gap 6 BUN 23 H Creatinine 0.80 Estim Creat Clear Calc 41 Estimated GFR > 60 Glucose 79 Calcium 8.6 Total Bilirubin 0.6 AST 20 ALT 10 Alkaline Phosphatase 68 Total Protein 6.0 L Albumin 3.4 L Immunocap Total IgE Cancelled IgG 1173 IgA 234 IgM 68 Rheumatoid Factor 13.5 Rheumatoid Factor Scrn Cancelled Rheumatoid Factor Titer Cancelled Quality VTE Prophylaxis VTE prophylaxis: pharmacologic ordered (Lovenox 30 mg subQ daily.)
--- NOTE | 2025-03-07 18:10 | PC.NURSE ---
Per patient, she only takes gabapentin twice a day and celebrex one time a day. Medication changed in DEC.
[2025-03-07 21:35] VITALS: BP 124/62; PULSE 63; RESP 16; TEMP 36.2; O2SAT 92
[2025-03-08] MEDS: ACETAMINOPHEN 325 MG TABLET 650 MG PO ×3 (04:38→22:21)
[2025-03-08] MEDS: LEVOTHYROXINE SODIUM 50 MCG TABLET PO (05:38)
--- NOTE | 2025-03-08 05:40 | PCRCNOTE ---
Patient did not receive sputum induction @ 0500 due to patient producing a sputum sample earlier in the night.
[2025-03-08 06:00] VITALS: BP 117/70; PULSE 60; RESP 16; TEMP 36.2; O2SAT 92
[2025-03-08 06:53] LABS: Alpha-1-Antitrypsin, QN 180 mg/dL (83-199)
[2025-03-08 07:03] LABS: Hematocrit 36.9 % (37.0-47.0); Mean Corpuscular HGB Conc 32.5 g/dl (32-36); Mean Corpuscular Hemoglobin 32.3 pg (26-34); Mean Corpuscular Volume 99.2 fl (80-100); Mean Platelet Volume 9.7 fl (7.4-10.4); Platelet Count Result 163 k/mm3 (150-375); Red Blood Count 3.72 M/mm3 (4.2-5.4); Red Cell Distribution Width 12.6 % (11.5-14.5); White Blood Count 9.7 K/mm3 (4.5-10.0)
[2025-03-08 07:16] LABS: Anion Gap 7 mmol/L (4-12); Blood Urea Nitrogen 18 mg/dL (7-17); Calcium 8.3 mg/dL (8.4-10.2); Carbon Dioxide 24 mmol/L (22-30); Chloride 104 mmol/L (98-107); Estimated CRCL calculation 46 ml/min; Estimated Glomerular Filt Rate > 60; Glucose 83 mg/dL (65-110); Potassium 3.9 mmol/L (3.4-5.0); Sodium 135 mmol/L (137-145)
--- NOTE | 2025-03-08 09:53 | P.PNPL_ITS ---
Progress Note: A&P Assessment and Plan (1) Right lower lobe pneumonia: Qualifiers: Pneumonia type: due to unspecified organism Qualified Code(s): J18.9 - Pneumonia, unspecified organism Code(s): J18.9 - Pneumonia, unspecified organism Status: Acute Assessment and Plan: Patient with a history of bronchiectasis presents with acute respiratory symptoms consistent with a bacterial infection, leukocytosis and a chest x-ray and CT scan that show a focal right lower lobe infiltrate. patient says she is doing much better. She feels 75-80% back to her normal. She has had no cough today. She has had minimal phlegm production. White blood cell count is 21.5. She is afebrile. Creatinine is 0.9. When I enter the room she was on 3 L nasal cannula saturations 98%. I turned her to room air and after 13 minutes her saturations were 90-91%. Plan: Patient is improved, oxygenation has improved. I will continue ceftriaxone and doxycycline, both day 2. I will send at respiratory pathogen panel look for alternative etiologies. Urine Legionella, urine pneumococcal and mycoplasma IgM are pending. 03/07/2025: Patient is improved. Patient tells me she is breathing back to her normal. Her cough is normal. She has more phlegm than normal and she expectorated while I was at the bed side and this was thick dark green phlegm with no blood. Currently the patient is on room air with saturations 94%. White blood cell count 12.1. Patient is afebrile. Creatinine 0.8. Plan: Continue ceftriaxone and doxycycline, both day 3. Respiratory pathogen, urine Legionella, urine pneumococcal and mycoplasma IgM are pending. 03/08/2025: Patient continues to improve. She tells me her breathing is better and back to her normal. Her cough is Overall improved and better than it has been in the last year. Her phlegm has improved since admission. She is walking and gets tired. Currently she is on room air with saturations 94%. White blood cell count 9.7, creatinine 0.7, she is afebrile. Plan: Continue ceftriaxone and doxycycline, both day 4. Would continue IV antibiotics while she is in the hospital. Respiratory pathogen, urine Legionella, urine pneumococcal and mycoplasma IgM are pending. Plans for patient to be discharged to acute rehabilitation. When she is discharged to acute rehabilitation would discharge on these pulmonary medications. Levofloxacin 750 mg p.o. q.day to complete a total of 10 days of antibiotics ( last dose 03/14/25) Augmentin 875-125 at 1 tablet p.o. b.i.d. to complete a total of 10 days of antibiotics (last dose 03/14/25) guaifenesin 600 mg p.o. b.i.d. Cornet flutter valve q.4 hours while awake Follow-up in the Pulmonary [facility] in 4 weeks. 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 She will need outpatient PFTs. Discussed with family in the room and Lisseth Amador, will sign off, call with questions. (2) Bronchiectasis: Qualifiers: Bronchiectasis type: with acute exacerbation Qualified Code(s): J47.1 - Bronchiectasis with (acute) exacerbation Code(s): J47.9 - Bronchiectasis, uncomplicated Status: Acute Assessment and Plan: Patient carries a history of bronchiectasis for 40 years and BARBARA treated for 2 years about 30 years ago. She had no symptoms up until about 9 months. She denies 5 chronic fevers, weight loss. 03/06/25: Plan: I will since induced sputum q.day x3 4 mycobacterial. I will initiate a Cornet flutter valve to aid in expectoration. I will continue guaifenesin 1200 mg p.o. b.i.d.. I will send serologies for bronchiectasis. patient has tried Advair in the past and says that this did not improve her breathing. I will send total IgG, IgM, IgA, IgE, IgG subclass, Aspergillus IgG, Aspergillus IgE, GRAHAM screen and rheumatoid factor. 03/07/25: Rheumatoid factor is 13.5, normal less than 12, IgA is normal, IgM is normal. GRAHAM, anti CCP, aspergillus titers IgE and IgG subclasses pending. 03/08/25: Alpha 1 anti trypsin level 180, normal greater than 83. GRAHAM, anti CCP, aspergillus titers IgE and IgG subclasses pending. 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 Joel 30-40 years ago and took multiple antibiotics for a tube out 2 years. She had many reactions and states she is allergic to ethambutol. 03/06/25: I will order sputum for AFB x3 03/07/25: Sputum for AFB x1 collected 03/08/25: Sputum for AFB x2 in the lab. Subjective Date/time seen: 03/08/25 09:53 Interval history: 03/06/2025: This is a new pulmonary consult for pneumonia. 84-year-old with a history of moderate aortic stenosis, hypertension, bronchiectasis since age 32, BARBARA 30-40 years ago. Regarding patient's bronchiectasis she has had no breathing trouble in her life but then developed bronchitis yearly at age 32. She has been treated with multiple rounds of antibiotics. Regarding her BARBARA she was P you had treated by Dr. Joel 30-40 years ago and took multiple antibiotics for a tube out 2 years. She had many reactions and states she is allergic to ethambutol. Nine months ago the patient started expectorating phlegm 5-6 times in the 1st 2 hours after she wakes up. This was new for her. The phlegm is green and brown. She tried antibiotics but this did not help her. 03/05/2024: Patient returned from a family gathering and developed cold feelings, chills and rigors. She presented to the emergency room with a blood pressure 140/62, heart rate 106, respirations 16 and room air saturations 88%. White blood cell count was 13.1, creatinine was 1.21, her BNP was 1130, her troponins were negative. Her venous blood gas was 7.41/41 less than 27. Her MRSA swab was negative. Patient was started on ceftriaxone and doxycycline and guaifenesin 1200 p.o. b.i.d.. The patient says she is doing much better. She feels 75-80% back to her normal. She has had no cough today. She has had minimal phlegm production. White blood cell count is 21.5. She is afebrile. Creatinine is 0.9. When I enter the room she was on 3 L nasal cannula saturations 98%. I turned her to room air and after 13 minutes her saturations were 90-91%. 03/07/2025: Patient is improved. Patient tells me she is breathing back to her normal. Her cough is normal. She has more phlegm than normal and she expectorated while I was at the bed side and this was thick dark green phlegm with no blood. Currently the patient is on room air with saturations 94%. White blood cell count 12.1. Patient is afebrile. Creatinine 0.8. 03/08/2025: Patient continues to improve. She tells me her breathing is better and back to her normal. Her cough is Overall improved and better than it has been in the last year. Her phlegm has improved since admission. She is walking and gets tired. Currently she is on room air with saturations 94%. White blood cell count 9.7, creatinine 0.7, she is afebrile. DATA: CT Scan of the Chest without Contrast: Clinical Indication: Pneumonia Technique: Contiguous sections were acquired throughout the chest without intravenous contrast. Dose reduction technique was used on this scan by utilizing automated exposure control and iterative reconstruction technique. The dose-length product (DLP) was 157.08 mGy-cm. Findings: There is no evidence of any significant mediastinal, hilar or axillary lymphadenopathy. Calcified subcarinal and right hilar lymph nodes are present. There are atherosclerotic calcifications of aorta and coronary arteries. There is no evidence of pleural or pericardial effusion. There is extensive patchy consolidation at the inferior right lower lobe, compatible with acute pneumonia. There is bronchiectatic change and scarring at the right middle lobe and lingula with scattered tree-in-bud opacities. There are a few additional areas of grouped nodules in the right lower lobe and right upper lobe, with nodules measuring up to 9 mm, most compatible small airways infectious process or small impacted airways. There are a few scattered subcentimeter nodules in the left lower lobe as well. Images through the upper abdomen reveal no abnormalities. Impression: Acute pneumonia in the inferior right lower lobe. Findings compatible with acute on chronic small airways infection scattered throughout both lungs, with extensive bronchiectatic change in the right middle lobe and lingula in particular, with additional scattered subcentimeter nodules present. Neoplastic disease felt to be less likely, though not completely excluded. Review of Systems Constitutional: Constitutional: Reports no additional constitutional complaints Eyes: Eyes: Reports no additional eye complaints ENT: Reports system reviewed and no additional complaints, except as documented Cardiovascular: Cardiovascular: Reports no additional cardiovascular comp laints Respiratory: Respiratory: Reports no additional respiratory complaints Gastrointestinal: Gastrointestinal: Reports no additional gastrointestinal complaints Musculoskeletal: Musculoskeletal: Reports no additional musculoskeletal co mplaints Neurologic: Reports system reviewed and no additional complaints, except as documented Psychiatric: Psychiatric: Reports no additional psychiatric complaints Endocrine: Endocrine: Reports no additional endocrine complaints Hematologic/Lymphatic: Hematologic/Lymphatic: Reports no additional hematologic/lymphatic complaints Allergic/Immunologic: Allergic/Immunologic: Reports no additional allergic/immunologic complaints Exam Const: General: cooperative, healthy appearing and comfortable Orientation/consciousness: oriented to person, oriented to place and oriented to time HENMT: Head: normal to inspection Ears: hearing grossly normal bilaterally Eyes: General: appearance normal, both eyes and all related structures Neck: Neck: normal visual inspection Chest: Chest palpation & inspection: normal inspection of the chest Resp: Effort & Inspection: normal respiratory effort and able to speak in complete sentences Auscultation: crackles, no rales, no rhonchi, no wheezes and lung sounds not diminished Other: Few crackles at the bases, some inspiratory squeaks. Cardio: Jugular venous distension: no JVD GI: Inspection: normal to inspection Skin: General skin exam: normal color Neuro: General: oriented to person, oriented to place and oriented to time Extrem: General: normal to inspection and edema Psych: Appearance: grossly normal Objective Data Vital Signs Vital Signs: Vital Signs - 24 hr 03/07/25 14:00 03/07/25 20:00 03/07/25 21:35 Temperature 36.1 C L 36.2 C L Pulse Rate 64 63 Respiratory Rate 16 16 Blood Pressure 141/66 H 124/62 Pulse Oximetry 94 92 Oxygen Delivery Room Air 03/08/25 06:00 Temperature 36.2 C L Pulse Rate 60 Respiratory Rate 16 Blood Pressure 117/70 Pulse Oximetry 92 Oxygen Delivery Intake/Output Intake/Output: Intake & Output 03/05/25 03/06/25 03/07/25 03/08/25 23:59 23:59 23:59 23:59 Intake Total 1050 2600 1910 500 Output Total 300 3000 1900 900 Balance 750 -400 10 -400 Meds/Results Medications: Active Medications Generic Name Dose Route Start Last Admin Trade Name Freq PRN Reason Stop Dose Admin Acetaminophen 650 mg 03/06/25 00:57 03/08/25 04:38 Acetaminophen 325 Mg Tablet PO 650 mg Q4H PRN Administration Pain 1-3 or fever Aspirin 81 mg 03/06/25 09:00 03/07/25 08:56 Aspirin 81 Mg Enteric Tablet PO 81 mg QAM KARLI Administration Celecoxib 100 mg 03/08/25 08:00 Celecoxib 100 Mg Capsule PO DAILY@0800 [facility] Docusate Sodium 100 mg 03/06/25 00:57 Docusate Sodium 100 Mg Capsule PO DAILY PRN constipation Enoxaparin Sodium 40 mg 03/07/25 09:00 03/07/25 09:05 Enoxaparin 40 Mg/0.4 Ml Syringe SUB-Q 40 mg DAILY KARLI Administration Gabapentin 300 mg 03/07/25 17:00 03/07/25 18:08 Gabapentin 300 Mg Capsule PO 300 mg BID KARLI Administration Guaifenesin 1,200 mg 03/06/25 09:00 03/07/25 20:35 Guaifenesin 12 Hr 600 Mg Tabcr PO 1,200 mg Q12HR KARLI Administration Ceftriaxone Sodium 1 gm in 50 mls @ 100 mls/hr 03/06/25 21:00 03/07/25 21:06 Rocephin 1 Gm/Ns 50 Ml IVPB Infused Q24H KARLI Infusion Doxycycline Hyclate 100 mg in 100 mls @ 100 mls/hr 03/06/25 10:00 03/07/25 21:36 Vibramycin 100 Mg/Ns 100 Ml IVPB Infused Q12HR KARLI Infusion Levothyroxine Sodium 50 mcg 03/06/25 06:30 03/08/25 05:38 Levothyroxine Sodium 50 Mcg Tablet PO 50 mcg DAILY@0630 [facility] Administration Losartan Potassium 25 mg 03/06/25 09:00 03/07/25 08:57 Losartan Potassium 25 Mg Tablet PO 25 mg DAILY KARLI Administration Metoprolol Succinate 100 mg 03/06/25 09:00 03/07/25 08:57 Metoprolol Succinate Ext Rel 100 Mg Tabcr PO 100 mg DAILY [facility] Administration Sodium Chloride 6 ml 03/07/25 05:00 03/08/25 05:40 Sodium Chlor 3% 15 Ml Neb (Respiratory Therapy) INHALATION 03/09/25 05:01 Not Given DAILY@0500 [facility] Radiology Results: ITS Impressions Chest X-Ray 03/05/25 22:24 IMPRESSION: Very prominent right hilum. Further evaluation advised. Vague opacity in the right upper lobe which may be a nodule or granuloma. Possible atelectasis versus pneumonia in the right lung base. Chest CT 03/06/25 05:13 Impression: Acute pneumonia in the inferior right lower lobe. Findings compatible with acute on chronic small airways infection scattered throughout both lungs, with extensive bronchiectatic change in the right middle lobe and lingula in particular, with additional scattered subcentimeter nodules present. Neoplastic disease felt to be less likely, though not completely excluded. Labs Labs: Laboratory Results - last 24 hr 03/07/25 03/08/25 05:22 06:33 WBC 9.7 RBC 3.72 L Hgb 12.0 Hct 36.9 L MCV 99.2 MCH 32.3 MCHC 32.5 RDW 12.6 Plt Count 163 MPV 9.7 Sodium 135 L Potassium 3.9 Chloride 104 Carbon Dioxide 24 Anion Gap 7 BUN 18 H Creatinine 0.70 Estim Creat Clear Calc 46 Estimated GFR > 60 Glucose 83 Calcium 8.3 L Pbgrs-7-Pzoacfmkduz 180
[2025-03-08 09:59] VITALS: PULSE 70
[2025-03-08] MEDS: METOPROLOL SUCCINATE EXT REL 100 MG TABCR PO (09:59)
[2025-03-08] MEDS: guaiFENesin 12 HR 600 MG TABCR 1200 MG PO ×2 (09:59→21:56)
[2025-03-08] MEDS: ASPIRIN 81 MG ENTERIC TABLET PO (10:00)
[2025-03-08] MEDS: LOSARTAN POTASSIUM 25 MG TABLET PO (10:00)
[2025-03-08] MEDS: DOXYCYCLINE 100 MG/NS 100 ML 100 MG/100 ML BAG IVPB (10:00)
[2025-03-08] MEDS: CELECOXIB 100 MG CAPSULE PO (10:00)
[2025-03-08] MEDS: GABAPENTIN 300 MG CAPSULE PO ×2 (10:00→15:58)
[2025-03-08] MEDS: DOCUSATE SODIUM 100 MG CAPSULE PO (10:08)
[2025-03-08] MEDS: ENOXAPARIN 40 MG/0.4 ML SYRINGE SUB-Q (10:10)
[2025-03-08 14:00] VITALS: BP 152/74; PULSE 95; RESP 16; TEMP 36.4; O2SAT 79
[2025-03-08 15:09] LABS: Aspergillus Fumigatus K/UL <0.10 kU/L; Conventional Class 0
[2025-03-08 15:28] LABS: Anti Cyclic Citrullinated Pept <16 UNITS
--- NOTE | 2025-03-08 17:36 | PM.IMPN ---
Progress Note: A&P Assessment and Plan (1) Acute hypoxic respiratory failure: Code(s): J96.01 - Acute respiratory failure with hypoxia Status: Acute (2) Sepsis: Qualifiers: Acute respiratory failure type: with hypoxia Sepsis acute organ dysfunction status: with acute organ dysfunction Sepsis type: sepsis due to unspecified organism Severe sepsis acute organ dysfunction type: acute respiratory failure Severe sepsis shock status: without septic shock Qualified Code(s): A41.9 - Sepsis, unspecified organism; R65.20 - Severe sepsis without septic shock; J96.01 - Acute respiratory failure with hypoxia Code(s): A41.9 - Sepsis, unspecified organism Status: Acute (3) Right lower lobe pneumonia: Qualifiers: Pneumonia type: due to unspecified organism Qualified Code(s): J18.9 - Pneumonia, unspecified organism Code(s): J18.9 - Pneumonia, unspecified organism Status: Acute (4) Bronchiectasis: Qualifiers: Bronchiectasis type: with acute exacerbation Qualified Code(s): J47.1 - Bronchiectasis with (acute) exacerbation Code(s): J47.9 - Bronchiectasis, uncomplicated Status: Acute Plan 84 year old admitted with sepsis and treated with right lower lobe pneumonia in the setting of chronic bronchiectasis. Blood cultures were negative Patient was started on empiric antibiotic therapy with Rocephin and doxycycline on 03/05. MRSA PCR was checked and negative. Patient received 30 mL/kilos bolus in the ER The patient does have known history of bronchiectasis and what sounds like Mycobacterium avium complex. She has long history of dyspnea on exertion and productive cough. 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 Will encourage good pulmonary toilet with Acapella and provide mucolytic therapy with Mucinex. Given the patient's history of moderate aortic stenosis in the fact the patient appears intervascular volume repleted will off on any further additional fluids at this time - monitor strict I&O's and daily weights - hold patient's home Lasix that is usually every other day (last taken 03/04/2025). -pulm consulted -Patient does have chronic kidney disease but BUN and creatinine appears to be near baseline - trend daily CBC and BMP Chronic respiratory failure and is on nasal cannula --Wean O2 as tolerated Pneumonia 03/05 Chest x-ray Very prominent right hilum. Further evaluation advised. Vague opacity in the right upper lobe which may be a nodule or granuloma. Possible atelectasis versus pneumonia in the right lung base. 03/[address] Very prominent right hilum. Further evaluation advised. Vague opacity in the right upper lobe which may be a nodule or granuloma. Possible atelectasis versus pneumonia in the right lung base. LABS: 03/07 Blood cultures pending, AFB pending PLAN --Continue Ceftriaxone 03/06- --Change IV Doxycycline from IV to PO --Viral panel sent and pending --urine Legionella, urine pneumococcal and mycoplasma IgM are pending --Pulmonary consulted, appreciate recommendations: Levofloxacin 750 mg p.o. q.day to complete a total of 10 days of antibiotics ( last dose 03/14/25) Augmentin 875-125 at 1 tablet p.o. b.i.d. to complete a total of 10 days of antibiotics (last dose 03/14/25) guaifenesin 600 mg p.o. b.i.d. Cornet flutter valve q.4 hours while awake Chronic HTN- reviewed and some hypotensive reading. BP 152/74. Amlodipine 2.5 stopped on 03/06 --May need to escalate metoprolol or losartan (on losartan 25 now and metoprolol 100) monitor closely Time Spent With Patient Time: 56 minutes Subjective Date/time seen: 03/08/25 17:36 Interval history: Feeling better, still short of breath with activity. Hip pain about the same Discharge to [facility] pending acceptance Hospital Course: 84-year-old with a history of moderate aortic stenosis, hypertension, bronchiectasis since age 32, BARBARA 30-40 years ago. Pumonary following during admission Review of Systems Review of Systems: 12 systems were reviewed with pertinent positives and negatives per HPI. Except as documented in the HPI, all other systems were reviewed and are negative. All systems reviewed & are unremarkable except as noted in HPI and below Exam Narrative: Weight 63 kg BMI 23.8 General - Awake and alert. No acute distress Eyes - PERRLA, EOM intact ENT - No thrush, No erythema Neck - No noticeable or palpable swelling Lymph Nodes - No lymphadenopathy Cardiovascular - RRR no m/r/g, no JVD Lungs: Mild expiratory wheezing, limited air movement, no use of accessory muscles, no crackles . Skin - Skin warm and dry, no wounds or rashes Abdomen - Normal bowel sounds, abdomen soft and nontender Extremities - No edema, cyanosis or clubbing Musculoskeletal - 5/5 strength, normal range of motion, no swollen or erythematous joints. Neurological – Alert and oriented x 3, CN 2-12 grossly intact. Psych: Normal mood and affect Objective Data Vital Signs Vital Signs: Vital Signs - 24 hr 03/07/25 20:00 03/07/25 21:35 03/08/25 06:00 Temperature 97.1 F L 97.2 F L Pulse Rate 63 60 Respiratory Rate 16 16 Blood Pressure 124/62 117/70 Pulse Oximetry 92 92 Oxygen Delivery Room Air 03/08/25 08:00 03/08/25 09:59 03/08/25 14:00 Temperature 97.6 F Pulse Rate 70 95 Respiratory Rate 16 Blood Pressure 152/74 H Pulse Oximetry 79 L Oxygen Delivery Room Air Intake/Output Intake/Output: Intake & Output 03/05/25 03/06/25 03/07/25 03/08/25 23:59 23:59 23:59 23:59 Intake Total 1050 2600 1910 1360 Output Total 300 3000 1900 900 Balance 750 -400 10 460 Meds/Results Medications: Active Medications Generic Name Dose Route Start Last Admin Trade Name Freq PRN Reason Stop Dose Admin Acetaminophen 650 mg 03/06/25 00:57 03/08/25 15:58 Acetaminophen 325 Mg Tablet PO 650 mg Q4H PRN Administration Pain 1-3 or fever Aspirin 81 mg 03/06/25 09:00 03/08/25 10:00 Aspirin 81 Mg Enteric Tablet PO 81 mg QAM KARLI Administration Celecoxib 100 mg 03/08/25 08:00 03/08/25 10:00 Celecoxib 100 Mg Capsule PO 100 mg DAILY@0800 KARLI Administration Docusate Sodium 100 mg 03/06/25 00:57 03/08/25 10:08 Docusate Sodium 100 Mg Capsule PO 100 mg DAILY PRN Administration constipation Enoxaparin Sodium 40 mg 03/07/25 09:00 03/08/25 10:10 Enoxaparin 40 Mg/0.4 Ml Syringe SUB-Q 40 mg DAILY KARLI Administration Gabapentin 300 mg 03/09/25 09:00 Gabapentin 300 Mg Capsule PO Q12HR [facility] Guaifenesin 1,200 mg 03/06/25 09:00 03/08/25 09:59 Guaifenesin 12 Hr 600 Mg Tabcr PO 1,200 mg Q12HR KARLI Administration Ceftriaxone Sodium 1 gm in 50 mls @ 100 mls/hr 03/06/25 21:00 03/07/25 21:06 Rocephin 1 Gm/Ns 50 Ml IVPB Infused Q24H KARLI Infusion Doxycycline Hyclate 100 mg in 100 mls @ 100 mls/hr 03/06/25 10:00 03/08/25 10:00 Vibramycin 100 Mg/Ns 100 Ml IVPB 100 mls/hr Q12HR KARLI Administration Levothyroxine Sodium 50 mcg 03/06/25 06:30 03/08/25 05:38 Levothyroxine Sodium 50 Mcg Tablet PO 50 mcg DAILY@0630 KARLI Administration Losartan Potassium 25 mg 03/06/25 09:00 03/08/25 10:00 Losartan Potassium 25 Mg Tablet PO 25 mg DAILY KARLI Administration Metoprolol Succinate 100 mg 03/06/25 09:00 03/08/25 09:59 Metoprolol Succinate Ext Rel 100 Mg Tabcr PO 100 mg DAILY KARLI Administration Sodium Chloride 6 ml 03/07/25 05:00 03/08/25 05:40 Sodium Chlor 3% 15 Ml Neb (Respiratory Therapy) INHALATION 03/09/25 05:01 Not Given DAILY@0500 [facility] Radiology Results: ITS Impressions Chest X-Ray 03/05/25 22:24 IMPRESSION: Very prominent right hilum. Further evaluation advised. Vague opacity in the right upper lobe which may be a nodule or granuloma. Possible atelectasis versus pneumonia in the right lung base. Chest CT 03/06/25 05:13 Impression: Acute pneumonia in the inferior right lower lobe. Findings compatible with acute on chronic small airways infection scattered throughout both lungs, with extensive bronchiectatic change in the right middle lobe and lingula in particular, with additional scattered subcentimeter nodules present. Neoplastic disease felt to be less likely, though not completely excluded. Labs Labs: Laboratory Results - last 24 hr 03/07/25 03/07/25 03/08/25 05:22 05:23 06:33 WBC 9.7 RBC 3.72 L Hgb 12.0 Hct 36.9 L MCV 99.2 MCH 32.3 MCHC 32.5 RDW 12.6 Plt Count 163 MPV 9.7 Sodium 135 L Potassium 3.9 Chloride 104 Carbon Dioxide 24 Anion Gap 7 BUN 18 H Creatinine 0.70 Estim Creat Clear Calc 46 Estimated GFR > 60 Glucose 83 Calcium 8.3 L Ajsem-5-Tlylaxvdark 180 A.fumigatus Allerg IgE <0.10 A.fumigatus IgE Conv Cl 0 A. fumigatus Interp See below Anti-Cycl Citrul Peptide <16 Quality VTE Prophylaxis VTE prophylaxis: pharmacologic ordered (Lovenox 30 mg subQ daily.) Hospitalist MIPS Advance Care Plan I have confirmed that the patient's Advanced Care Plan is present, code status is documented, or surrogate decision maker is listed in patient medical record.: Yes Medication Reconciliation I have utilized all available resources to obtain, update and review the patients current medications (includes all prescriptions, OTC, herbals, cannabis, and nutritional supplements).: Yes
[2025-03-08 22:00] VITALS: BP 126/55; PULSE 65; RESP 18; TEMP 36.1; O2SAT 97
[2025-03-09] MEDS: LEVOTHYROXINE SODIUM 50 MCG TABLET PO (05:31)
[2025-03-09 06:00] VITALS: BP 152/78; PULSE 63; RESP 16; TEMP 36.1; O2SAT 94
[2025-03-09 07:59] LABS: ANA Cascade Screen NEGATIVE (NEGATIVE)
[2025-03-09 08:36] VITALS: PULSE 68; RESP 16; O2SAT 91
[2025-03-09] MEDS: LOSARTAN POTASSIUM 25 MG TABLET PO (09:15)
[2025-03-09] MEDS: ASPIRIN 81 MG ENTERIC TABLET PO (09:15)
[2025-03-09] MEDS: GABAPENTIN 300 MG CAPSULE PO ×2 (09:15→20:42)
[2025-03-09] MEDS: DOXYCYCLINE HYCLATE 100 MG TABLET PO ×2 (09:15→20:42)
[2025-03-09] MEDS: guaiFENesin 12 HR 600 MG TABCR 1200 MG PO ×2 (09:15→20:42)
[2025-03-09] MEDS: CELECOXIB 100 MG CAPSULE PO (09:15)
[2025-03-09 09:16] VITALS: PULSE 68
[2025-03-09] MEDS: METOPROLOL SUCCINATE EXT REL 100 MG TABCR PO (09:16)
[2025-03-09] MEDS: ENOXAPARIN 40 MG/0.4 ML SYRINGE SUB-Q (09:17)
[2025-03-09 10:49] LABS: Immunoglobulin G, Serum 1105 mg/dL (600-1540); Immunoglobulin G1 636 mg/dL (382-929); Immunoglobulin G2 271 mg/dL (241-700); Immunoglobulin G3 111 mg/dL (22-178); Immunoglobulin G4 76.7 mg/dL (4.0-86.0)
--- NOTE | 2025-03-09 13:04 | PM.IMPN ---
Progress Note: A&P Assessment and Plan (1) Acute hypoxic respiratory failure: Code(s): J96.01 - Acute respiratory failure with hypoxia Status: Acute (2) Sepsis: Qualifiers: Sepsis type: sepsis due to unspecified organism Sepsis acute organ dysfunction status: with acute organ dysfunction Severe sepsis acute organ dysfunction type: acute respiratory failure Acute respiratory failure type: with hypoxia Severe sepsis shock status: without septic shock Qualified Code(s): A41.9 - Sepsis, unspecified organism; R65.20 - Severe sepsis without septic shock; J96.01 - Acute respiratory failure with hypoxia Code(s): A41.9 - Sepsis, unspecified organism Status: Acute (3) Right lower lobe pneumonia: Qualifiers: Pneumonia type: due to unspecified organism Qualified Code(s): J18.9 - Pneumonia, unspecified organism Code(s): J18.9 - Pneumonia, unspecified organism Status: Acute (4) Bronchiectasis: Qualifiers: Bronchiectasis type: with acute exacerbation Qualified Code(s): J47.1 - Bronchiectasis with (acute) exacerbation Code(s): J47.9 - Bronchiectasis, uncomplicated Status: Acute (5) RUDOLPH (acute kidney injury): Code(s): N17.9 - Acute kidney failure, unspecified Status: Acute Plan 84 year old admitted with sepsis and treated with right lower lobe pneumonia in the setting of chronic bronchiectasis. Blood cultures were negative. Pulmonary following IMAGING 03/05 Chest x-ray Very prominent right hilum. Further evaluation advised. Vague opacity in the right upper lobe which may be a nodule or granuloma. Possible atelectasis versus pneumonia in the right lung base. 03/[address] Very prominent right hilum. Further evaluation advised. Vague opacity in the right upper lobe which may be a nodule or granuloma. Possible atelectasis versus pneumonia in the right lung base. LABS: 03/07 Blood cultures pending--NGTD 03/07 Sputum for AFB x3 pending Serologies for bronchiectasis sent. total IgG, IgM, IgA, IgE, IgG subclass, Aspergillus IgG, Aspergillus IgE, GRAHAM screen and rheumatoid factor. 03/07/25: Rheumatoid factor is 13.5, normal less than 12, IgA is normal, IgM is normal. GRAHAM, anti CCP, aspergillus titers IgE and IgG subclasses pending. 03/07 Blood cultures pending 03/08/25: Alpha 1 anti trypsin level 180, normal greater than 83. GRAHAM, anti CCP, aspergillus titers IgE and IgG subclasses pending. Viral panel sent and pending Chronic respiratory failure --Weaned to RA --Treatment of pneumonia & bronchiectasis as noted Pneumonia Bronchiectasis Hx atypical mycobacterium disease The patient has a known history of bronchiectasis and what sounds like Mycobacterium avium complex. She has long history of dyspnea on exertion and productive cough. MRSA PCR was checked and negative. Regarding her BARBARA she was treated by Dr. Joel 30-40 years ago and took multiple antibiotics for a tube out 2 years. She had many reactions and states she is allergic to ethambutol Pulmonary followed during admission. Induced sputum q.day x3 4 mycobacterial. Started a Cornet flutter valve to aid in expectoration. Guaifenesin 1200 mg p.o. b.i.d decreased to 600mg bid for discharge. Patient has tried Advair in the past and says that this did not improve her breathing. PLAN --Started Ceftriaxone 03/06-, continue Doxycycline, Discharge with Levafloxacin and Augmentin through 03/14 --urine Legionella, urine pneumococcal and mycoplasma IgM are pending --Pulmonary consulted, appreciate recommendations --Levofloxacin 750 mg p.o. q.day to complete a total of 10 days of antibiotics ( last dose 03/14/25) --Augmentin 875-125 at 1 tablet p.o. b.i.d. to complete a total of 10 days of antibiotics (last dose 03/14/25) --guaifenesin 600 mg p.o. b.i.d. --Cornet flutter valve q.4 hours while awake Chronic HTN- Blood pressures ranged 102-152/71. --Stopped amlodipine 2.5mg and furosemide 20mg. Can monitor off amlodipine given chronic LE edema and restart or increase losartan as needed --Continued losartan 25mg and metoprolol 100mg --Continue HCTZ 12.5mg daily RUDOLPH Mild RUDOLPH on admission, creatinine 1.21, improved to 0.7 off lasix. Patient does have chronic kidney disease but BUN and creatinine appears to be near baseline --Held furosemide 20mg (had been taking every other day). Start hctz 12.5mg daily --monitor strict I&O's and daily weights Time Spent With Patient Time: 58 minutes Subjective Date/time seen: 03/09/25 13:04 Interval history: Feeling better, still short of breath with activity. Hip pain about the same Swelling improved Stable for discharge to [facility] pending acceptance. Discussing AFB culture for BARBARA with [facility]. Not concerned about an infectious process and no concern for TB. Hospital Course: 84-year-old with a history of moderate aortic stenosis, hypertension, bronchiectasis since age 32, BARBARA 30-40 years ago. Pulmonary following during admission Review of Systems Review of Systems: 12 systems were reviewed with pertinent positives and negatives per HPI. Except as documented in the HPI, all other systems were reviewed and are negative. All systems reviewed & are unremarkable except as noted in HPI and below Exam Narrative: Weight 63 kg BMI 23.8 General - Awake and alert. No acute distress Eyes - PERRLA, EOM intact ENT - No thrush, No erythema Neck - No noticeable or palpable swelling Lymph Nodes - No lymphadenopathy Cardiovascular - RRR no m/r/g, no JVD Lungs: Mild expiratory wheezing, limited air movement, no use of accessory muscles, no crackles . Skin - Skin warm and dry, no wounds or rashes Abdomen - Normal bowel sounds, abdomen soft and nontender Extremities - No edema, cyanosis or clubbing Musculoskeletal - 5/5 strength, normal range of motion, no swollen or erythematous joints. Neurological – Alert and oriented x 3, CN 2-12 grossly intact. Psych: Normal mood and affect Objective Data Vital Signs Vital Signs: Vital Signs - 24 hr 03/08/25 14:00 03/08/25 22:00 03/09/25 06:00 Temperature 97.6 F 97.0 F L 97.0 F L Pulse Rate 95 65 63 Respiratory Rate 16 18 16 Blood Pressure 152/74 H 126/55 L 152/78 H Pulse Oximetry 79 L 97 94 Oxygen Delivery 03/09/25 08:36 03/09/25 09:16 Temperature Pulse Rate 68 68 Respiratory Rate 16 Blood Pressure Pulse Oximetry 91 Oxygen Delivery Room Air Intake/Output Intake/Output: Intake & Output 03/06/25 03/07/25 03/08/25 03/09/25 23:59 23:59 23:59 23:59 Intake Total 2600 1910 2150 670 Output Total 3000 1900 1900 800 Balance -400 10 250 -130 Meds/Results Medications: Active Medications Generic Name Dose Route Start Last Admin Trade Name Harpreetq PRN Reason Stop Dose Admin Acetaminophen 650 mg 03/06/25 00:57 03/08/25 22:21 Acetaminophen 325 Mg Tablet PO 650 mg Q4H PRN Administration Pain 1-3 or fever Aspirin 81 mg 03/06/25 09:00 03/09/25 09:15 Aspirin 81 Mg Enteric Tablet PO 81 mg QAM KARLI Administration Celecoxib 100 mg 03/08/25 08:00 03/09/25 09:15 Celecoxib 100 Mg Capsule PO 100 mg DAILY@0800 KARLI Administration Docusate Sodium 100 mg 03/06/25 00:57 03/08/25 10:08 Docusate Sodium 100 Mg Capsule PO 100 mg DAILY PRN Administration constipation Doxycycline Hyclate 100 mg 03/09/25 09:00 03/09/25 09:15 Doxycycline Hyclate 100 Mg Tablet PO 100 mg Q12HR KARLI Administration Enoxaparin Sodium 40 mg 03/07/25 09:00 03/09/25 09:17 Enoxaparin 40 Mg/0.4 Ml Syringe SUB-Q 40 mg DAILY KARLI Administration Gabapentin 300 mg 03/09/25 09:00 03/09/25 09:15 Gabapentin 300 Mg Capsule PO 300 mg Q12HR KARLI Administration Guaifenesin 1,200 mg 03/06/25 09:00 03/09/25 09:15 Guaifenesin 12 Hr 600 Mg Tabcr PO 1,200 mg Q12HR KARLI Administration Ceftriaxone Sodium 1 gm in 50 mls @ 100 mls/hr 03/06/25 21:00 03/08/25 21:55 Rocephin 1 Gm/Ns 50 Ml IVPB 100 mls/hr Q24H KARLI Administration Levothyroxine Sodium 50 mcg 03/06/25 06:30 03/09/25 05:31 Levothyroxine Sodium 50 Mcg Tablet PO 50 mcg DAILY@0630 KARLI Administration Losartan Potassium 25 mg 03/06/25 09:00 03/09/25 09:15 Losartan Potassium 25 Mg Tablet PO 25 mg DAILY KARLI Administration Metoprolol Succinate 100 mg 03/06/25 09:00 03/09/25 09:16 Metoprolol Succinate Ext Rel 100 Mg Tabcr PO 100 mg DAILY KARLI Administration Radiology Results: ITS Impressions Chest X-Ray 03/05/25 22:24 IMPRESSION: Very prominent right hilum. Further evaluation advised. Vague opacity in the right upper lobe which may be a nodule or granuloma. Possible atelectasis versus pneumonia in the right lung base. Chest CT 03/06/25 05:13 Impression: Acute pneumonia in the inferior right lower lobe. Findings compatible with acute on chronic small airways infection scattered throughout both lungs, with extensive bronchiectatic change in the right middle lobe and lingula in particular, with additional scattered subcentimeter nodules present. Neoplastic disease felt to be less likely, though not completely excluded. Labs Labs: Laboratory Results - last 24 hr 03/07/25 03/07/25 05:22 05:23 A.fumigatus Allerg IgE <0.10 A.fumigatus IgE Conv Cl 0 A. fumigatus Interp See below IgG 1105 IgG1 636 IgG2 271 IgG3 111 IgG4 76.7 Anti-Cycl Citrul Peptide <16 GRAHAM Scrn Qualitative Negative Quality VTE Prophylaxis VTE prophylaxis: pharmacologic ordered (Lovenox 30 mg subQ daily.) Hospitalist MIPS Advance Care Plan I have confirmed that the patient's Advanced Care Plan is present, code status is documented, or surrogate decision maker is listed in patient medical record.: Yes Medication Reconciliation I have utilized all available resources to obtain, update and review the patients current medications (includes all prescriptions, OTC, herbals, cannabis, and nutritional supplements).: Yes
[2025-03-09 14:00] VITALS: BP 152/71; PULSE 74; RESP 18; TEMP 36.4; O2SAT 94
--- NOTE | 2025-03-09 14:20 | PM.DS ---
DS: Admitting Diagnosis Discharge Date 03/09/2025 DS: Summary Hospital Course Reason for hospitalization: Copied from [facility] 03/05: Chief Complaint: “not feeling well” Narrative: 84-year-old female with a past medical history of bronchiectasis, mycobacterium avium complex about 40 years ago, moderate aortic stenosis, essential hypertension, chronic kidney disease stage 3 with baseline creatinine 1.1, essential hypertension chronic lower extremity edema with use of compression socks and chronic pain who presented to the ER from home via EMS complaining of not feeling well and chills. The patient states that she has been having a chronic cough for years. About a year ago she began having a cough productive of yellow sputum a. In March of last year she began having cough of yellow to brown sputum and was placed on a course of antibiotics. Her cough and sputum production did not improved. Several months ago instead of disc coughing some sputum up each morning she started having a small amount of sputum production in the afternoon as well. She reports that she never can not walk very far without being short of breath. She denies any chest pain. She denies any recent ill contacts. She has chronic lower extremity edema that is unchanged from baseline. She reports her left lower extremity is always more swollen than her right in this is been ongoing for most of her life. He denies any orthopnea or paroxysmal nocturnal dyspnea. She reports that today after she had been out and about for mother's Day when she returned home she felt fatigued. All the sudden she acutely did not feel well. She then started to get severe cold chills like she had never had before. She did not feel feverish. She has not had any nausea or vomiting. She denies chest pain. She did have her pneumococcal vaccine, RSV vaccine and flu vaccine this year. She states that she has mention her cough to her primary care physician and to her research programmer in the able told her that she needs to follow-up with a electrical sign servicer. However she states that they did not make the referral and did not give a specific recommendation is to which electrical sign servicer she should go see. The patient reports that in recent months 2 over antihypertensives have been decreased in dose. It looks like her Norvasc which was originally 10 mg last year was cut down to 5 mg and then a couple of months ago was cut down to 2.5 mg. Her losartan was also decreased recently from 50 mg down to 25 mg due to variable blood pressures. After the patient received 1 L normal saline bolus in the ER she did develop some hypoxia. Her oxygen saturations dropped to 85% on room air. She was placed on 3 L nasal cannula. On arrival to the ER the patient had a temperature of 99° and was mildly tachycardic with some mild tachypnea. Sepsis workup demonstrated leukocytosis, right lower lobe pneumonia on noncontrast CT scan of the chest with evidence of bronchiectasis, VBG demonstrated respiratory alkalosis with hypoxemia and BMP demonstrated mild hyponatremia with BUN of 38 and creatinine of 1.21. Labs from outside facility were reviewed and demonstrated elevated MCV but normal hemoglobin at 13.6, the patient's baseline creatinine is 1.16. Source of information comes from patient, review of patient's external medical records through my chart paul and family report. The patient's case was discussed with her 2 sons Josue at bedside with the patient's permission. Patient herself is a good historian. The patient denies known history of chronic kidney disease but review of the patient's outpatient labs from November demonstrated a creatinine of 1.16 and given the patient's age in weight is still leaves her GFR less than 60. Her labs at that time also demonstrated mild hyperkalemia. She has a baseline hemoglobin is outpatient of 13.6 with elevated MCV and she had a TSH recently that was normal at 2.42. Primary care physician: Dr. Morse [employer] Integrator: Dr. Yeboah ([facility]) Hospital Course: 84 year old admitted with sepsis and treated with right lower lobe pneumonia in the setting of chronic bronchiectasis. Blood cultures were negative. Pulmonary followed closely during admission Patient was started on empiric antibiotic therapy with Rocephin and doxycycline on 03/05. MRSA PCR was checked and negative. Chronic respiratory failure and is on nasal cannula --Wean O2 as tolerated Pneumonia The patient has a known history of bronchiectasis and what sounds like Mycobacterium avium complex. She has long history of dyspnea on exertion and productive cough. Will encourage good pulmonary toilet with Acapella and provide mucolytic therapy with Mucinex. Given the patient's history of moderate aortic stenosis. Pulmonary followed during admission. Induced sputum q.day x3 4 mycobacterial. Started a Cornet flutter valve to aid in expectoration. Guaifenesin 1200 mg p.o. b.i.d decreased to 600mg bid for discharge. Patient has tried Advair in the past and says that this did not improve her breathing. Serologies for bronchiectasis sent. total IgG, IgM, IgA, IgE, IgG subclass, Aspergillus IgG, Aspergillus IgE, GRAHAM screen and rheumatoid factor. 03/07/25: Rheumatoid factor is 13.5, normal less than 12, IgA is normal, IgM is normal. GRAHAM, anti CCP, aspergillus titers IgE and IgG subclasses pending. 03/08/25: Alpha 1 anti trypsin level 180, normal greater than 83. GRAHAM, anti CCP, aspergillus titers IgE and IgG subclasses pending. 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 Joel 30-40 years ago and took multiple antibiotics for a tube out 2 years. She had many reactions and states she is allergic to ethambutol. 03/06/25: I will order sputum for AFB x3 03/07/25: Sputum for AFB x1 collected 03/08/25: Sputum for AFB x2 in the lab. 03/05 Chest x-ray Very prominent right hilum. Further evaluation advised. Vague opacity in the right upper lobe which may be a nodule or granuloma. Possible atelectasis versus pneumonia in the right lung base. 03/[address] Very prominent right hilum. Further evaluation advised. Vague opacity in the right upper lobe which may be a nodule or granuloma. Possible atelectasis versus pneumonia in the right lung base. LABS: 03/07 Blood cultures pending, AFB pending RUDOLPH Mild RUDOLPH on admission, creatinine 1.21, improved to 0.7 off lasix --Changed furosemide 20mg every other day to hctz 12.5mg daily Chronic HTN- Blood pressures ranged 102-152/71 --Stopped amlodipine 2.5mg and furosemide 20mg. Can monitor off amlodipine given chronic LE edema and restart or increase losartan as needed --Continued losartan 25mg and metoprolol --Started HCTZ 12.5mg daily PLAN --Continue Ceftriaxone 03/06- --Change IV Doxycycline from IV to PO --Viral panel sent and pending --urine Legionella, urine pneumococcal and mycoplasma IgM are pending --Pulmonary consulted, appreciate recommendations: Levofloxacin 750 mg p.o. q.day to complete a total of 10 days of antibiotics ( last dose 03/14/25) Augmentin 875-125 at 1 tablet p.o. b.i.d. to complete a total of 10 days of antibiotics (last dose 03/14/25) guaifenesin 600 mg p.o. b.i.d. Cornet flutter valve q.4 hours while awake Time Spent with Patient Time attestation: Total time spent providing and/or coordinating discharge services: DS: Data Data Completed and Pending Labs on day of discharge: Labs from last 24 hours 03/07/25 03/07/25 05:23 05:22 A.fumigatus Allerg IgE <0.10 A.fumigatus IgE Conv Cl 0 A. fumigatus Interp See below IgG 1105 IgG1 636 IgG2 271 IgG3 111 IgG4 76.7 Anti-Cycl Citrul Peptide <16 GRAHAM Scrn Qualitative Negative Preliminary micro results at discharge 03/07/25 04:41 Acid Fast Bacilli Culture - Preliminary Sputum 03/05/25 22:04 Blood Culture - Preliminary Blood Discharge Plan Discharge Attending physician on discharge: Anjali Amador Consulting providers: Emmanuel Headley Discharging Clinician: Anjali Amador Anticipated Discharge Date/Time: 03/09/25 13:37 Patient Disposition: Home Activity: february shower Diet: heart healthy Discharge Instructions: Follow up with pulmonary in 4 weeks. Continue Cornet flutter valve to help cough be productive. Patient Instructions: Antibiotic Form, Heart Failure (DC) Patient Language: South African Stand Alone Forms: General Discharge Information Follow-up/Referrals: Emmanuel Headley MD [Physician] - 4 Weeks Discharge Medications: New amoxicillin-pot clavulanate 875-125 mg tablet 1 tablet PO Q12H Qty: 11 0RF Rx Instructions: Last doses 03/14 guaifenesin 600 mg tablet extended release 12hr 600 mg PO BID Qty: 60 0RF levofloxacin 750 mg tablet 750 mg PO DAILY Qty: 5 0RF Rx Instructions: Last dose 03/14 hydrochlorothiazide 12.5 mg tablet 12.5 mg PO DAILY Qty: 30 0RF Continued metoprolol succinate 100 mg tablet extended release 24 hr 100 mg PO DAILY levothyroxine 50 mcg tablet 50 mcg PO DAILY losartan 25 mg tablet 25 mg PO DAILY aspirin 81 mg tablet 81 mg PO DAILY docusate sodium 100 mg capsule 100 mg PO DAILY PRN (Reason: constipation) acetaminophen 325 mg capsule 650 mg PO .q8hr PRN (Reason: fever or pain) Changed celecoxib 100 mg capsule 100 mg PO DAILY Qty: 30 0RF gabapentin 300 mg capsule 300 mg PO BID Qty: 60 0RF Discontinued amlodipine 10 mg tablet 2.5 mg PO DAILY furosemide 20 mg tablet 20 mg PO .qod Date of admission: 03/05/25 22:39 Primary Care Provider: Mini,James Mireles Admitting Provider: Jessa Cunha Attending physician on admission: Anjali Amador Condition: Stable
[2025-03-09 15:08] LABS: Pneumococcal Antigen Urine NOT DETECTED
[2025-03-09] MEDS: ACETAMINOPHEN 325 MG TABLET 650 MG PO (16:14)
[2025-03-09 17:33] LABS: Mycoplasma IgM Antibody Titer 130 U/mL
[2025-03-09 18:28] LABS: Adenovirus DNA Not Detected (Not Detected); Chlamydophila pneumoniae Not Detected (Not Detected); Coronavirus 229E Not Detected (Not Detected); Coronavirus HKU1 Not Detected (Not Detected); Coronavirus NL63 Not Detected (Not Detected); Coronavirus OC43 Not Detected (Not Detected); Human Metapneumovirus Not Detected (Not Detected); Human Parainfluenza Virus 1 Not Detected (Not Detected); Human Parainfluenza Virus 2 Not Detected (Not Detected); Human Parainfluenza Virus 3 Not Detected (Not Detected); Human Parainfluenza Virus 4 Not Detected (Not Detected); Human RSV B Not Detected (Not Detected); Influenza A Not Detected (Not Detected); Influenza B Not Detected (Not Detected); Mycoplasma pneumoniae Not Detected (Not Detected); Rhinovirus/Enterovirus Not Detected (Not Detected)
[2025-03-09 19:33] LABS: Legionella pneumophila Ag Ur NOT DETECTED
[2025-03-09 20:05] VITALS: O2SAT 92
[2025-03-09 22:00] VITALS: BP 144/66; PULSE 68; RESP 16; TEMP 36.2; O2SAT 95
[2025-03-10] MEDS: ACETAMINOPHEN 325 MG TABLET 650 MG PO ×2 (03:30→10:22)
[2025-03-10 06:00] VITALS: BP 148/73; PULSE 80; RESP 16; TEMP 36.1; O2SAT 93
[2025-03-10] MEDS: LEVOTHYROXINE SODIUM 50 MCG TABLET PO (06:21)
[2025-03-10] MEDS: LOSARTAN POTASSIUM 25 MG TABLET PO (10:21)
[2025-03-10] MEDS: ENOXAPARIN 40 MG/0.4 ML SYRINGE SUB-Q (10:21)
[2025-03-10] MEDS: hydroCHLOROthiazide 12.5 MG CAPSULE PO (10:21)
[2025-03-10 10:22] VITALS: PULSE 68
[2025-03-10] MEDS: DOXYCYCLINE HYCLATE 100 MG TABLET PO (10:22)
[2025-03-10] MEDS: GABAPENTIN 300 MG CAPSULE PO (10:22)
[2025-03-10] MEDS: ASPIRIN 81 MG ENTERIC TABLET PO (10:22)
[2025-03-10] MEDS: METOPROLOL SUCCINATE EXT REL 100 MG TABCR PO (10:22)
[2025-03-10] MEDS: CELECOXIB 100 MG CAPSULE PO (10:22)
[2025-03-10] MEDS: guaiFENesin 12 HR 600 MG TABCR 1200 MG PO (10:23)
--- NOTE | 2025-03-10 10:23 | PM.IMPN ---
Progress Note: A&P Assessment and Plan (1) Acute hypoxic respiratory failure: Code(s): J96.01 - Acute respiratory failure with hypoxia Status: Acute (2) Sepsis: Qualifiers: Acute respiratory failure type: with hypoxia Sepsis acute organ dysfunction status: with acute organ dysfunction Sepsis type: sepsis due to unspecified organism Severe sepsis acute organ dysfunction type: acute respiratory failure Severe sepsis shock status: without septic shock Qualified Code(s): A41.9 - Sepsis, unspecified organism; R65.20 - Severe sepsis without septic shock; J96.01 - Acute respiratory failure with hypoxia Code(s): A41.9 - Sepsis, unspecified organism Status: Acute (3) Right lower lobe pneumonia: Qualifiers: Pneumonia type: due to unspecified organism Qualified Code(s): J18.9 - Pneumonia, unspecified organism Code(s): J18.9 - Pneumonia, unspecified organism Status: Acute (4) Bronchiectasis: Qualifiers: Bronchiectasis type: with acute exacerbation Qualified Code(s): J47.1 - Bronchiectasis with (acute) exacerbation Code(s): J47.9 - Bronchiectasis, uncomplicated Status: Acute (5) RUDOLPH (acute kidney injury): Code(s): N17.9 - Acute kidney failure, unspecified Status: Acute Plan 84 year old admitted with sepsis and treated with right lower lobe pneumonia in the setting of chronic bronchiectasis. Blood cultures were negative. Pulmonary following IMAGING 03/05 Chest x-ray Very prominent right hilum. Further evaluation advised. Vague opacity in the right upper lobe which may be a nodule or granuloma. Possible atelectasis versus pneumonia in the right lung base. 03/[address] Very prominent right hilum. Further evaluation advised. Vague opacity in the right upper lobe which may be a nodule or granuloma. Possible atelectasis versus pneumonia in the right lung base. LABS: 03/07 Blood cultures pending--NGTD 03/07 Sputum for AFB x3 pending Serologies for bronchiectasis sent. total IgG, IgM, IgA, IgE, IgG subclass, Aspergillus IgG, Aspergillus IgE, GRAHAM screen and rheumatoid factor. 03/07/25: Rheumatoid factor is 13.5, normal less than 12, IgA is normal, IgM is normal. GRAHAM, anti CCP, aspergillus titers IgE and IgG subclasses pending. 03/07 Blood cultures pending 03/08/25: Alpha 1 anti trypsin level 180, normal greater than 83. GRAHAM, anti CCP, aspergillus titers IgE and IgG subclasses pending. Viral panel sent and pending Chronic respiratory failure --Weaned to RA --Treatment of pneumonia & bronchiectasis as noted Pneumonia Bronchiectasis Hx atypical mycobacterium disease The patient has a known history of bronchiectasis and what sounds like Mycobacterium avium complex. She has long history of dyspnea on exertion and productive cough. MRSA PCR was checked and negative. Regarding her BARBARA she was treated by Dr. Joel 30-40 years ago and took multiple antibiotics for a tube out 2 years. She had many reactions and states she is allergic to ethambutol Pulmonary followed during admission. Induced sputum q.day x3 for mycobacterial. 1 is negative. Awaiting to other test results. Started a Cornet flutter valve to aid in expectoration. Guaifenesin 1200 mg p.o. b.i.d decreased to 600mg bid for discharge. Patient has tried Advair in the past and says that this did not improve her breathing. Patient started on Ceftriaxone 03/06-, continue Doxycycline --urine Legionella not detected, urine pneumococcal not detected and mycoplasma IgM negative --Pulmonary consulted, appreciate recommendations --Levofloxacin 750 mg p.o. q.day to complete a total of 10 days of antibiotics ( last dose 03/14/25) --Augmentin 875-125 at 1 tablet p.o. b.i.d. to complete a total of 10 days of antibiotics (last dose 03/14/25) --guaifenesin 600 mg p.o. b.i.d. --Cornet flutter valve q.4 hours while awake Chronic HTN- Blood pressures ranged 102-152/71. --Stopped amlodipine 2.5mg and furosemide 20mg. Can monitor off amlodipine given chronic LE edema and restart or increase losartan as needed --Continued losartan 25mg and metoprolol 100mg --Continue HCTZ 12.5mg daily RUDOLPH Mild RUDOLPH on admission, creatinine 1.21, improved to 0.7 off lasix. Patient does have chronic kidney disease but BUN and creatinine appears to be near baseline --Held furosemide 20mg (had been taking every other day). Start hctz 12.5mg daily --monitor strict I&O's and daily weights Subjective Date/time seen: 03/10/25 10:23 Interval history: No overnight events reported. Plan discharge to [facility]. Review of Systems Review of Systems: All systems reviewed & are unremarkable except as noted in HPI and below Exam Narrative: General - Awake and alert. No acute distress Eyes - PERRLA, EOM intact ENT - No thrush, No erythema Neck - No noticeable or palpable swelling Lymph Nodes - No lymphadenopathy Cardiovascular - RRR no m/r/g, no JVD Lungs: Mild expiratory wheezing, limited air movement, no use of accessory muscles, no crackles . Skin - Skin warm and dry, no wounds or rashes Abdomen - Normal bowel sounds, abdomen soft and nontender Extremities - No edema, cyanosis or clubbing Musculoskeletal - 5/5 strength, normal range of motion, no swollen or erythematous joints. Neurological – Alert and oriented x 3, CN 2-12 grossly intact. Psych: Normal mood and affect Objective Data Vital Signs Vital Signs: Vital Signs - 24 hr 03/09/25 14:00 03/09/25 20:05 03/09/25 22:00 Temperature 97.6 F 97.1 F L Pulse Rate 74 68 Respiratory Rate 18 16 Blood Pressure 152/71 H 144/66 H Pulse Oximetry 94 92 95 Oxygen Delivery Room Air 03/10/25 06:00 03/10/25 10:22 Temperature 97.0 F L Pulse Rate 80 68 Respiratory Rate 16 Blood Pressure 148/73 H Pulse Oximetry 93 Oxygen Delivery Intake/Output Intake/Output: Intake & Output 03/07/25 03/08/25 03/09/25 03/10/25 23:59 23:59 23:59 23:59 Intake Total 1910 2200 910 740 Output Total 1900 1900 1200 1800 Balance 10 300 290 -1060 Meds/Results Medications: Active Medications Generic Name Dose Route Start Last Admin Trade Name Freq PRN Reason Stop Dose Admin Acetaminophen 650 mg 03/06/25 00:57 03/10/25 10:22 Acetaminophen 325 Mg Tablet PO 650 mg Q4H PRN Administration Pain 1-3 or fever Aspirin 81 mg 03/06/25 09:00 03/10/25 10:22 Aspirin 81 Mg Enteric Tablet PO 81 mg QAM KARLI Administration Celecoxib 100 mg 03/08/25 08:00 03/10/25 10:22 Celecoxib 100 Mg Capsule PO 100 mg DAILY@0800 KARLI Administration Docusate Sodium 100 mg 03/06/25 00:57 03/08/25 10:08 Docusate Sodium 100 Mg Capsule PO 100 mg DAILY PRN Administration constipation Doxycycline Hyclate 100 mg 03/09/25 09:00 03/10/25 10:22 Doxycycline Hyclate 100 Mg Tablet PO 100 mg Q12HR KARLI Administration Enoxaparin Sodium 40 mg 03/07/25 09:00 03/10/25 10:21 Enoxaparin 40 Mg/0.4 Ml Syringe SUB-Q 40 mg DAILY KARLI Administration Gabapentin 300 mg 03/09/25 09:00 03/10/25 10:22 Gabapentin 300 Mg Capsule PO 300 mg Q12HR KARLI Administration Guaifenesin 1,200 mg 03/06/25 09:00 03/10/25 10:23 Guaifenesin 12 Hr 600 Mg Tabcr PO 1,200 mg Q12HR KARLI Administration Hydrochlorothiazide 12.5 mg 03/10/25 09:00 03/10/25 10:21 Hydrochlorothiazide 12.5 Mg Capsule PO 12.5 mg QAM KARLI Administration Ceftriaxone Sodium 1 gm in 50 mls @ 100 mls/hr 03/06/25 21:00 03/09/25 20:42 Rocephin 1 Gm/Ns 50 Ml IVPB 100 mls/hr Q24H KARLI Administration Levothyroxine Sodium 50 mcg 03/06/25 06:30 03/10/25 06:21 Levothyroxine Sodium 50 Mcg Tablet PO 50 mcg DAILY@0630 KARLI Administration Losartan Potassium 25 mg 03/06/25 09:00 03/10/25 10:21 Losartan Potassium 25 Mg Tablet PO 25 mg DAILY KARLI Administration Metoprolol Succinate 100 mg 03/06/25 09:00 03/10/25 10:22 Metoprolol Succinate Ext Rel 100 Mg Tabcr PO 100 mg DAILY KARLI Administration Radiology Results: ITS Impressions Chest X-Ray 03/05/25 22:24 IMPRESSION: Very prominent right hilum. Further evaluation advised. Vague opacity in the right upper lobe which may be a nodule or granuloma. Possible atelectasis versus pneumonia in the right lung base. Chest CT 03/06/25 05:13 Impression: Acute pneumonia in the inferior right lower lobe. Findings compatible with acute on chronic small airways infection scattered throughout both lungs, with extensive bronchiectatic change in the right middle lobe and lingula in particular, with additional scattered subcentimeter nodules present. Neoplastic disease felt to be less likely, though not completely excluded. Labs Labs: Laboratory Results - last 24 hr 03/05/25 03/05/25 03/06/25 21:33 22:45 00:22 Nasal RSV Type A (PCR) Nasal RSV Type B (PCR) IgG IgG1 IgG2 IgG3 IgG4 Chlamy pneumoniae PCR Adenovirus DNA Human Bocavirus (CHILANGO) Coronavirus Type OC43 Coronavirus Type HKU1 Coronavirus Type 229E Coronavirus Type NL63 Human Metapneumovir PCR Influenza A (PCR) Influenza A (H1) RNA Influenza A (H3) PCR Ur L.pneumophila Ag Not detected Mycoplasma pneumon IgM 130 M. pneumoniae DNA Parainfluenza PCR Parainfluenza 2 (PCR) Parainfluenza 3 RNA (PCR) Parainfluenza 4 (PCR) Rhino/Enterovirus (CHILANGO) SARS-CoV-2 RNA (RT-PCR) Urine Pneumococcal Ag Not detected Influenza Type B (PCR) Misc Test Comment 03/06/25 03/07/25 21:04 05:22 Nasal RSV Type A (PCR) Not detected Nasal RSV Type B (PCR) Not detected IgG 1105 IgG1 636 IgG2 271 IgG3 111 IgG4 76.7 Chlamy pneumoniae PCR Not detected Adenovirus DNA Not detected Human Bocavirus (CHILANGO) Not detected Coronavirus Type OC43 Not detected Coronavirus Type HKU1 Not detected Coronavirus Type 229E Not detected Coronavirus Type NL63 Not detected Human Metapneumovir PCR Not detected Influenza A (PCR) Not detected Influenza A (H1) RNA Not detected Influenza A (H3) PCR Not detected Ur L.pneumophila Ag Mycoplasma pneumon IgM M. pneumoniae DNA Not detected Parainfluenza PCR Not detected Parainfluenza 2 (PCR) Not detected Parainfluenza 3 RNA (PCR) Not detected Parainfluenza 4 (PCR) Not detected Rhino/Enterovirus (CHILANGO) Not detected SARS-CoV-2 RNA (RT-PCR) Not detected Urine Pneumococcal Ag Influenza Type B (PCR) Not detected Misc Test Comment see note
--- NOTE | 2025-03-10 12:30 | PCNWS ---
Weekly nutritional screen. Patient is tolerating current Heart healthy diet with adequate intake 50-85%. No weight loss reported. No nutritional needs at this time.
--- NOTE | 2025-03-10 16:43 | PM.DS ---
DS: Admitting Diagnosis Discharge Date 03/10/25 Admitting Diagnosis Shortness of breath DS: Discharge Diagnosis Discharge Diagnosis (1) Acute hypoxic respiratory failure: Code(s): J96.01 - Acute respiratory failure with hypoxia Status: Acute (2) Sepsis: Qualifiers: Sepsis type: sepsis due to unspecified organism Sepsis acute organ dysfunction status: with acute organ dysfunction Severe sepsis acute organ dysfunction type: acute respiratory failure Acute respiratory failure type: with hypoxia Severe sepsis shock status: without septic shock Qualified Code(s): A41.9 - Sepsis, unspecified organism; R65.20 - Severe sepsis without septic shock; J96.01 - Acute respiratory failure with hypoxia Code(s): A41.9 - Sepsis, unspecified organism Status: Acute (3) Right lower lobe pneumonia: Qualifiers: Pneumonia type: due to unspecified organism Qualified Code(s): J18.9 - Pneumonia, unspecified organism Code(s): J18.9 - Pneumonia, unspecified organism Status: Acute (4) Bronchiectasis: Qualifiers: Bronchiectasis type: with acute exacerbation Qualified Code(s): J47.1 - Bronchiectasis with (acute) exacerbation Code(s): J47.9 - Bronchiectasis, uncomplicated Status: Acute (5) RUDOLPH (acute kidney injury): Code(s): N17.9 - Acute kidney failure, unspecified Status: Acute DS: Summary Hospital Course Hospital Course: 84 year old admitted with sepsis and treated with right lower lobe pneumonia in the setting of chronic bronchiectasis. Blood cultures were negative. Pulmonary following IMAGING 03/05 Chest x-ray Very prominent right hilum. Further evaluation advised. Vague opacity in the right upper lobe which may be a nodule or granuloma. Possible atelectasis versus pneumonia in the right lung base. 03/[address] Very prominent right hilum. Further evaluation advised. Vague opacity in the right upper lobe which may be a nodule or granuloma. Possible atelectasis versus pneumonia in the right lung base. LABS: 03/07 Blood cultures pending--NGTD 03/07 Sputum for AFB x3 pending Serologies for bronchiectasis sent. total IgG, IgM, IgA, IgE, IgG subclass, Aspergillus IgG, Aspergillus IgE, GRAHAM screen and rheumatoid factor. 03/07/25: Rheumatoid factor is 13.5, normal less than 12, IgA is normal, IgM is normal. GRAHAM, anti CCP, aspergillus titers IgE and IgG subclasses pending. 03/07 Blood cultures pending 03/08/25: Alpha 1 anti trypsin level 180, normal greater than 83. GRAHAM, anti CCP, aspergillus titers IgE and IgG subclasses pending. Viral panel sent and pending Chronic respiratory failure --Weaned to RA --Treatment of pneumonia & bronchiectasis as noted Pneumonia Bronchiectasis Hx atypical mycobacterium disease The patient has a known history of bronchiectasis and what sounds like Mycobacterium avium complex. She has long history of dyspnea on exertion and productive cough. MRSA PCR was checked and negative. Regarding her BARBARA she was treated by Dr. Joel 30-40 years ago and took multiple antibiotics for a tube out 2 years. She had many reactions and states she is allergic to ethambutol Pulmonary followed during admission. Induced sputum q.day x3 for mycobacterial. 1 is negative. Awaiting to other test results. Started a Cornet flutter valve to aid in expectoration. Guaifenesin 1200 mg p.o. b.i.d decreased to 600mg bid for discharge. Patient has tried Advair in the past and says that this did not improve her breathing. Patient started on Ceftriaxone 03/06-, continue Doxycycline --urine Legionella not detected, urine pneumococcal not detected and mycoplasma IgM negative --Pulmonary consulted, appreciate recommendations --Levofloxacin 750 mg p.o. q.day to complete a total of 10 days of antibiotics ( last dose 03/14/25) --Augmentin 875-125 at 1 tablet p.o. b.i.d. to complete a total of 10 days of antibiotics (last dose 03/14/25) --guaifenesin 600 mg p.o. b.i.d. --Cornet flutter valve q.4 hours while awake Chronic HTN- Blood pressures ranged 102-152/71. --Stopped amlodipine 2.5mg and furosemide 20mg. Can monitor off amlodipine given chronic LE edema and restart or increase losartan as needed --Continued losartan 25mg and metoprolol 100mg --Continue HCTZ 12.5mg daily RUDOLPH Mild RUDOLPH on admission, creatinine 1.21, improved to 0.7 off lasix. Patient does have chronic kidney disease but BUN and creatinine appears to be near baseline --Held furosemide 20mg (had been taking every other day). Start hctz 12.5mg daily --monitor strict I&O's and daily weights Patient transferred to [facility] for for rehabilitation Time Spent with Patient Time attestation: Total time spent providing and/or coordinating discharge services: Exam Narrative: General - Awake and alert. No acute distress Eyes - PERRLA, EOM intact ENT - No thrush, No erythema Neck - No noticeable or palpable swelling Lymph Nodes - No lymphadenopathy Cardiovascular - RRR no m/r/g, no JVD Lungs: Mild expiratory wheezing, limited air movement, no use of accessory muscles, no crackles . Skin - Skin warm and dry, no wounds or rashes Abdomen - Normal bowel sounds, abdomen soft and nontender Extremities - No edema, cyanosis or clubbing Musculoskeletal - 5/5 strength, normal range of motion, no swollen or erythematous joints. Neurological – Alert and oriented x 3, CN 2-12 grossly intact. Psych: Normal mood and affect DS: Data Data Completed and Pending Labs on day of discharge: Labs from last 24 hours 03/06/25 03/06/25 03/05/25 21:04 00:22 22:45 Nasal RSV Type A (PCR) Not detected Nasal RSV Type B (PCR) Not detected Chlamy pneumoniae PCR Not detected Adenovirus DNA Not detected Human Bocavirus (CHILANGO) Not detected Coronavirus Type OC43 Not detected Coronavirus Type HKU1 Not detected Coronavirus Type 229E Not detected Coronavirus Type NL63 Not detected Human Metapneumovir PCR Not detected Influenza A (PCR) Not detected Influenza A (H1) RNA Not detected Influenza A (H3) PCR Not detected Ur L.pneumophila Ag Not detected Mycoplasma pneumon IgM 130 M. pneumoniae DNA Not detected Parainfluenza PCR Not detected Parainfluenza 2 (PCR) Not detected Parainfluenza 3 RNA (PCR) Not detected Parainfluenza 4 (PCR) Not detected Rhino/Enterovirus (CHILANGO) Not detected SARS-CoV-2 RNA (RT-PCR) Not detected Influenza Type B (PCR) Not detected Misc Test Comment see note Preliminary micro results at discharge 03/07/25 04:41 Acid Fast Bacilli Culture - Preliminary Sputum 03/05/25 22:04 Blood Culture - Preliminary Blood Imaging Radiologist's impression: ITS Impressions Chest X-Ray 03/05/25 22:24 IMPRESSION: Very prominent right hilum. Further evaluation advised. Vague opacity in the right upper lobe which may be a nodule or granuloma. Possible atelectasis versus pneumonia in the right lung base. Chest CT 03/06/25 05:13 Impression: Acute pneumonia in the inferior right lower lobe. Findings compatible with acute on chronic small airways infection scattered throughout both lungs, with extensive bronchiectatic change in the right middle lobe and lingula in particular, with additional scattered subcentimeter nodules present. Neoplastic disease felt to be less likely, though not completely excluded. Discharge Plan Discharge Attending physician on discharge: Anjali Amador Consulting providers: Emmanuel Headley Discharging Clinician: Anjali Amador Anticipated Discharge Date/Time: 03/10/25 16:43 Patient Disposition: [facility] Activity: february shower Diet: heart healthy Discharge Instructions: Follow up with pulmonary in 4 weeks. Continue Cornet flutter valve to help cough be productive. Patient Instructions: Antibiotic Form, Heart Failure (DC) Patient Language: Serbian Stand Alone Forms: General Discharge Information Follow-up/Referrals: Emmanuel Headley MD [Physician] - 4 Weeks Mini,James Mireles MD [Primary Care Provider] - 1 Week Discharge Medications: New levofloxacin 750 mg tablet 750 mg PO DAILY Qty: 5 0RF Rx Instructions: Last dose 5/20 amoxicillin-pot clavulanate 875-125 mg tablet 1 tablet PO Q12H Qty: 11 0RF Rx Instructions: Last doses 5/20 guaifenesin 600 mg tablet extended release 12hr 600 mg PO BID Qty: 60 0RF hydrochlorothiazide 12.5 mg tablet 12.5 mg PO DAILY Qty: 30 0RF Continued metoprolol succinate 100 mg tablet extended release 24 hr 100 mg PO DAILY levothyroxine 50 mcg tablet 50 mcg PO DAILY losartan 25 mg tablet 25 mg PO DAILY aspirin 81 mg tablet 81 mg PO DAILY docusate sodium 100 mg capsule 100 mg PO DAILY PRN (Reason: constipation) acetaminophen 325 mg capsule 650 mg PO Q8H PRN (Reason: fever or pain) Changed gabapentin 300 mg capsule 300 mg PO BID Qty: 60 0RF celecoxib 100 mg capsule 100 mg PO DAILY Qty: 30 0RF Discontinued amlodipine 10 mg tablet 2.5 mg PO DAILY furosemide 20 mg tablet 20 mg PO .qod Date of admission: 03/05/25 22:39 Primary Care Provider: Mini,James Mireles Admitting Provider: Jessa Cunha Attending physician on admission: Anjali Amador Condition: Stable
[2025-03-11 18:03] LABS: Immunoglobulin E 28 kU/L (<OR=114)
[2025-03-15 04:34] LABS: Aspergillus fumigatus (m3) IgG 15.8 mcg/mL (<2.0); Conventional Class 0
== END 2025-03-10 12:15 | DRG 871 ==
LOC: ANHED 22:38 → ANH3MED 23:08
PROVIDERS: Internal Medicine Pulmonary Disease; Nurse Practitioner; Admitting Provider Internal Medicine; Emergency Provider Emergency Medicine; PCP Internal Medicine; Visit Provider Internal Medicine
DX: A41.9 Sepsis, unspecified organism (principal); J18.9 Pneumonia, unspecified organism; J96.21 Acute and chronic respiratory failure with hypoxia; N17.9 Acute kidney failure, unspecified; J47.1 Bronchiectasis with (acute) exacerbation; R65.20 Severe sepsis without septic shock; Z86.19 Personal history of other infectious and parasitic diseases; I35.0 Nonrheumatic aortic (valve) stenosis; I12.9 Hypertensive chronic kidney disease with stage 1 through stage 4 chronic kidney disease, or unspecified chronic kidney disease; N18.30 Chronic kidney disease, stage 3 unspecified; M19.90 Unspecified osteoarthritis, unspecified site; E03.9 Hypothyroidism, unspecified; M81.0 Age-related osteoporosis without current pathological fracture; Z96.641 Presence of right artificial hip joint; Z96.611 Presence of right artificial shoulder joint; Z96.653 Presence of artificial knee joint, bilateral; Z90.710 Acquired absence of both cervix and uterus
CPT/HCPCS: 36415; 71045; 71250; 80048; 80053; 81001; 82103; 82104; 82784; 82785; 82787; 82803; 82948; 83605; 83690; 83735; 83880; 84100; 84145; 84484; 85025; 85027; 85610; 85730; 86001; 86003; 86038; 86200; 86225; 86235; 86364; 86430; 86738; 87015; 87040; 87070; 87116; 87205; 87206; 87449; 87633; 87637; 87641; 87899; 93005; 94667; 94668; 96360; 97110; 97116; 97161; 97166; 97530; 97535; 99285; A9270; J0696; J1650; J7030; J7120

== ENCOUNTER 2025-03-24 12:03 | Inpatient (IN) | payer MEDICARE, BC, SELFPAY ==
--- NOTE | 2025-03-24 12:05 | PC.NURSE ---
Patient arrived to facility in privately owned vehicle, accompanied by patient's family. Patient arrived to unit in w/c accompanied by nurse and patient's family. Patient able to transfer from w/c to chair with 1 assist and gait belt. Patient admitted to room 208 for skilled therapy services. Patient and family educated on use of call light, bed controls, general hospital policies, visiting hours and use of rapid response. Patient and family voiced understanding.
--- OUTSIDE RECORDS SUMMARY | 2025-03-24 12:09 | XMS_ITS | Clinical Summary ---
Author Organization [facility] Address [address] [place] [address] Care Team Providers Care Optometrist Assistant Name Role Phone James Morse MD Primary Care Provider [phone] James Morse MD Unavailable [phone] Angie Claudio RN Unavailable Unavailable Source Comments [facility],non-[facility] Affiliates and Associated Physician Practices is amultiple site organization consisting of ambulatory clinics and hospital sitesin [place], [place], [place] and [place]. This disclosure is being madepursuant to the Care Everywhere program and may not contain all information available regarding this patient. Last updated 18.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 Gender Identity Not on file Sexual Orientation [...] 10:52 AM CDT Height 157.5 cm (5' 2) 08/26/2018 10:52 AM CDT Body Mass Index [...] this topic Medical Devices Implanted Type Area Lottery Sales Clerk Device Identifier Shelf Expiration Date Model / Serial / Lot Cmnt Bone Plc R 40gm Grn Implanted:Qty: 2 on 05/14/2017 by Smith Jennings MD at [facility] Right: Knee [employer] 12/23/2021 [id number] / / [id number] Journey Nonporous Tibial Baseplate Implanted:Qty: 1 on 05/14/2017 by Smith Jennings MD at [facility] Right: Knee [employer] 04/14/2027 [id number] / / [id number] Size 4 Right Bi Cruciate Stabilized Journey Ii Bcs Oxinium Femoral Component Implanted:Qty: 1 on 05/14/2017 by Smith Jennings MD at [facility] Right: Knee [employer] 03/29/2027 [id number] / / [id number] Cmpnt Ptlr Ovl [id number] Gns2 Uhmwpe Kn Implanted:Qty: 1 on 05/14/2017 by Smith Jennings MD at [facility] Right: Knee [employer] 04/15/2027 [id number] / / [id number] Right Size 3-4 15mm Journey Ii Bcs Xlpe A/P 48mm M/L 68mm Articular Insert Implanted:Qty: 1 on 05/14/2017 by Smith Jennings MD at [facility] Right: Knee [employer] 12/29/2026 [id number] / / [id number] Explanted Type Area Lottery Sales Clerk Device Identifier Shelf Expiration Date Model / Serial / Lot Ns Vis Cut Guide Jii Kit Rt Sz F4/T3 Explanted:Qty: 1 on 05/14/2017 at [facility] Right: Knee [employer] 08/03/2017 [id number] / / [id number] Insurance MEDICARE [facility] Advance Directives Documents on File Type Date Recorded Patient Communications Maintainer Expl anation Adv Directive/Living Will/POA 05/19/2017 10:00 PM * Full Code (Latest Code Status on File) Date Activated Date Inactivated Comments 05/14/2017 2:40 PM 05/18/2017 6:58 PM Care Teams Optometrist Assistant Relationship Specialty Start Date End Date James Morse MD PCP - General Internal Medicine 10/17/16 James Morse MD Internal Medicine 10/17/16 Angie Claudio RN Case Manager 05/19/17
--- OUTSIDE RECORDS SUMMARY | 2025-03-24 12:09 | XMS_ITS | Referral Summary ---
Author Organization [facility] Address [address] [place] [address] Care Team Providers Care Coat Feller Name Role Phone James Morse MD Primary Care Provider [phone] Ji Rodriguez MD Unavailable [phone] Danielle Reinoso RN Unavailable Unavailable Nancy Sutton RN Unavailable Unavailab le Encounters Date Type Department Care Team Description 03/07/2025 Telephone [email or web address] [address] [place] [address] [address] [place] [address] James Morse MD Spoke With Home Health Provider 03/07/2025 E-Visit [email or web address] [address] [place] [address] [address] [place] [address] James Morse MD Update on Chikis Arango from Last 3 Months Allergies Active Allergy [...] Additional Information Patient not taking.Reported on 09/19/2024 losartan (COZAAR) 25 mg tablet Take 1 [...] WITH MEALS 180 capsule 02/28/20 25 Active furosemide (LASIX) 20 mg tablet TAKE 1 TABLET BY MOUTH EVERY OTHER DAY 45 tablet 3 03/14/20 25 Active furosemide (LASIX) 20 mg tablet Take 1 tablet (20 mg total) by mouth every other day 45 tablet 3 02/29/20 24 025 Discontinued celecoxib (CeleBREX) 100 mg capsule TAKE 1 CAPSULE BY MOUTH TWICE A DAY WITH MEALS 180 capsule 11/27/19 25 025 Discontinued Active Problems Problem Noted Date Diagnosed Date 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 Heart failure with reduced ejection fraction 03/2025 Assessment & Plan (12/01/2024 12:29 PM GAS PLANT WORKER): Stable. 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 Will have her hold her evening losartan take losartan 50 in the morning and amlodipine 10 at HS. Primary osteoarthritis of left hip 08/27/2018 Assessment & Plan (12/01/2024 12:29 PM GAS PLANT WORKER): Chronic. 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 Swelling of extremity [...] on file Legal Sex Female 11:31 PM GAS PLANT WORKER Gender Identity Female 03/12/2022 7:56 AM CDT Sexual Orientation Not on file Occupation Industry Job Start Date Job End Date Retired Not on file Not on file Not on file Last Filed Vital Signs Vital Sign Reading Time Taken Comments Blood Pressure 129/76 12/01/2024 11:48 AM GAS PLANT WORKER Pulse 76 12/01/2024 11:48 AM GAS PLANT WORKER Temperature 36.4 C (97.6 F) 08/02/2019 1:07 PM CDT Respiratory Rate 16 08/02/2019 1:07 PM CDT Oxygen Saturation 93% 09/19/2024 4:07 PM GAS PLANT WORKER Inhaled Oxygen Concentration - - Weight 63 kg (139 lb) 12/01/2024 11:48 AM GAS PLANT WORKER Height 160 cm (5' 3) 12/01/2024 11:48 AM GAS PLANT WORKER Body Mass Index 24.62 12/01/2024 11:48 AM GAS PLANT WORKER Plan of Treatment Not on file Procedures [...] -2.0 is below the expected range for age. A Z-score below the expected range for age in a patient with recent fractures and/or chronic corticosteroid treatment is consistent with a diagnosis of osteoporosis. B) In post menopausal women and males over 50, comparison of the measured bone mineral density with the average value in young normal subjects (the T-score) has been found to be useful in [...] -2.0 is below the expected range for age. A Z-score below the expected range for age in a patient with recent fractures and/or chronic corticosteroid treatment is consistent with a diagnosis of osteoporosis. B) In post menopausal women and males over 50, comparison of the measured bone mineral density with the average value in young normal subjects (the T-score) has been found to be useful in [...] Recently Relevant to Health Maintenance Insurance MEDICARE [facility] BLUE TRADITIONAL OOS MEDICARE BLUE TRADITIONAL O[place] BLUE TRADITIONAL OOS MEDICARE MEDICARE [facility] Care Teams Coat Feller Relationship Specialty Start Date End Date James Morse MD PCP - General Internal Medicine 05/11/19 Ji Rodriguez MD Referring Physician Cardiology 08/05/22 Danielle Reinoso, discharge door operator Failure Coordinator Transplant 11/25/23 Nancy Sutton, discharge door operator Failure Coordinator Cardiology 04/12/24
--- OUTSIDE RECORDS SUMMARY | 2025-03-24 12:09 | XMS_ITS | Clinical Summary ---
Author Organization [facility] Address [address] [place] [address] Care Team Providers Care Repertoire Manager Name Role Phone James Morse MD Primary Care Provider [phone] Ji Rodriguez MD Unavailable [phone] Danielle Reinoso RN Unavailable Unavailable Nancy Sutton [...] 12/01/2024 Assessment & Plan (12/01/2024 12:29 PM FUR VAULT ATTENDANT): Followed by cardiology. Heart failure with reduced ejection fraction 03/2025 Assessment & Plan (12/01/2024 12:29 PM FUR VAULT ATTENDANT): Stable. 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 Will have her hold her evening losartan take losartan 50 in the morning and amlodipine 10 at HS. Primary osteoarthritis of left hip 08/27/2018 Assessment & Plan (12/01/2024 12:29 PM FUR VAULT ATTENDANT): Chronic. 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 Swelling of extremity [...] Type Department Care Team Description 03/07/2025 Telephone [facility] [address] [place] [address] James Morse MD Spoke With Home Health Provider 03/07/2025 E-Visit [facility] [address] [place] [address] James Morse MD Update on Chikis Arango from Last 3 Months Immunizations Immunization Administration [...] on file Legal Sex Female 11:31 PM FUR VAULT ATTENDANT Gender Identity Female 03/12/2022 7:56 AM CDT Sexual Orientation Not on file Occupation Industry Job Start Date Job End Date Retired Not on file Not on file Not on file Obstetrics History Last Filed Vital Signs Vital Sign Reading Time Taken Comments Blood Pressure 129/76 12/01/2024 11:48 AM FUR VAULT ATTENDANT Pulse 76 12/01/2024 11:48 AM FUR VAULT ATTENDANT Temperature 36.4 C (97.6 F) 08/02/2019 1:07 PM CDT Respiratory Rate 16 08/02/2019 1:07 PM CDT Oxygen Saturation 93% 09/19/2024 4:07 PM FUR VAULT ATTENDANT Inhaled Oxygen Concentration - - Weight 63 kg (139 lb) 12/01/2024 11:48 AM FUR VAULT ATTENDANT Height 160 cm (5' 3) 12/01/2024 11:48 AM FUR VAULT ATTENDANT Body Mass Index 24.62 12/01/2024 11:48 AM FUR VAULT ATTENDANT Plan of Treatment Health Maintenance Due Date [...] it. Electronically signed by: Yasmin Lara M.D. us James Morse MD IMG DXA PROCEDURES Final Resu lt from Last 3 Months or Most Recently Relevant to Health Maintenance Insurance MEDICARE [facility] Member Subscriber Plan / Payer ( fective 2009-Present) Name:Chikis Arango Relation to Subscriber:Self Name:CHIKIS ARANGO Payer ID:[id number] (NAIC) Type:[employer] Address: [address] MEDICARE BLUE TRADITIONAL [place] [id number] TRADITIONAL OOS MEDICARE MEDICARE [place] TRADITIONAL OOS Member Subscriber Plan / Payer (Ef fective 2009-Present) Name:Chikis Arango Relation to Subscriber:Self Name:Chikis Arango Payer ID:[id number] (NAIC) Type:[facility] Address: [address] [place] [id number] Care Teams Repertoire Manager Relationship Specialty Start Date End Date James Morse MD PCP - General Internal Medicine 05/11/19 Ji Rodriguez MD Referring Physician Cardiology 08/05/22 Danielle Reinoso, property custodian Failure Coordinator Transplant 11/25/23 Nancy Sutton RN Heart Failure Coordinator Cardiology 04/12/24
--- OUTSIDE RECORDS SUMMARY | 2025-03-24 12:09 | XMS_ITS | Encounter Summary ---
Author Organization [facility] Address [address] [place] [address] Care Team Providers Care Chief Of Police Name Role Phone James Morse MD Primary Care Provider Ji Rodriguez MD Unavailable [phone] Danielle Reinoso RN Unavailable Unavailable Nancy Sutton RN Unavailable Unavailab le Encounter Details Date Type Department Care Team (Late st Contact Info) Description 03/07/2025 E-Visit [facility] [address] [address] James Morse MD [address] [place] [address] Update on Chikis Arango Social History Tobacco Use Types Packs/Day Years Used Date Smoking Tobacco: Never Smokeless Tobacco: Never Alcohol Use Standard Drinks/Week Comments No 0 [...] on file Legal Sex Female 11:31 PM 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 Gender Identity Female 03/12/2022 7:56 AM CDT Sexual Orientation Not on file Occupation Industry Job Start Date Job End Date Retired Not on file Not on file Not on file documented as of this encounter Plan of Treatment Not on file documented as of this encounter Visit Diagnoses Not on filedocumented in this encounter Care Teams Chief Of Police Relationship Specialty Start Date End Date James Morse MD PCP - General Internal Medicine 05/11/19 Ji Rodriguez MD Referring Physician Cardiology 08/05/22 Danielle Reinoso, cell tender helper Failure Coordinator Transplant 11/25/23 Nancy Sutotn, cell tender helper Failure Coordinator Cardiology 04/12/24 documented as of this encounter
--- OUTSIDE RECORDS SUMMARY | 2025-03-24 12:09 | XMS_ITS | CONTINUITY OF CARE DOCUMENT ---
Author Name pratibha, pratibha Address Unknown Organization [facility] Address [address] [place] [address] Phone [phone] Care Team Providers Care Weekday Babysitter Name Role Phone Eddie LUO, Héctor Unavailable [phone] LYLE ULU MD Unavailable LYLE LUU MD Unavailable [phone] PROBLEMS Condition Status Date Provider Notes Shortness of breath active Liviapatricia Alatorre Chest pain active Livia Alatorre INSURANCE PROVIDERS Payer name Policy type / Coverage type [place] red constitution party ID [facility] [id number] 1 [place] MEDICARE Medicare [id number] HISTORY OF PROCEDURES Procedure Date Procedure Name Provider Procedure Notes S tatus Stress EKG Loco Shaw MD completed Regadenoson, 4 units Héctor Morgan MD completed Cardiolite, 2 units Héctor Morgan MD completed SPECT Images Héctor Morgan MD complet ed
--- OUTSIDE RECORDS SUMMARY | 2025-03-24 12:09 | XMS_ITS | Continuity of Care Document ---
Author Organization [facility] Address [address] [place] [address] Phone Care Team Providers Care Flame Planer Name Role Phone Kevin Shaw DO Unavailable Unavailable Advance Directives Directive Yes / No Effective Date File Name No Information Encounters Encounter Description Practice Location Reason(s) For Visit Diagnoses Date Provider Providers Copied on Encounter [facility], [address], [place], [place], [id number], [place] tel:[phone] [facility] No Information Valeria Frederick. [address], [place], [address], [place]. tel: [phone] Family History Family Member Type Diagnosis Age At Onset No Information Payers Payer name Insurance type Covered constitution party ID Authoriza tion(s) No Information Social History [...]
--- NOTE | 2025-03-24 12:40 | P.HP_ITS ---
H&P: HPI History of Present Illness Date/Time: 03/24/25 12:40 Chief Complaint: Physical debility related to extended hospitalization for Pneumonia Narrative: Patient is an 84 year old female with a past medical history HTN, HLD, chronic pain syndrome, PNA who presented to [facility] for debility related to extended hospitalization due to pneumonia. Patient was treated with IV antibiotics, and finished treatment. After treatment she went to [facility] [facility] and from there to here. Currently she is denying any chest pain, shortness of breath, fevers, sweats, chills. PT/OT have been consulted. Patient wishes to return home at time of discharge. Family was present in the room. Plan of care updated and all questions answered. Review of Systems Review of Systems: All systems reviewed & are unremarkable except as noted in HPI and below PMFSH Past Medical History Medical History (Updated 03/15/25 @ 09:34 by Shauna Pham MD) Constipation Arthritis pain Malaise and fatigue Bronchiectasis with (acute) exacerbation Osteoporosis Moderate aortic stenosis With echocardiogram August 2024 demonstrating EF of 54%, normal diastolic function, mild mitral valve regurgitation, moderate aortic stenosis with valve area 1.3 cm2 and velocity of 22 and mild tricuspid regurgitation Bronchiectasis Osteoarthritis Hypothyroidism TSH 2.November Essential hypertension Surgical History Surgical History History of esophageal hernia repair History of right hip replacement History of right shoulder replacement History of total bilateral knee replacement History of vaginal hysterectomy (~2001) Family History Family History Mother CHF (congestive heart failure) Father Parkinson disease CAD (coronary artery disease) Sibling Heart disease Son , 1 of her 3 sons Muscular dystrophy Social History Social History Social History: The patient lives in her own home. She had 3 sons 2 of which are still living. Code status: No CPR (the patient states that she would be okay with being intubated for a few days if she needed 2 to help her breathing but she would not want to be intubated for long-term. She states that if her heart were to stop she would want to be allowed a natural ) Healthcare power of commercial attorney: Mandeep (oldest son) Smoking status: Never smoker Second hand tobacco smoke exposure: No Alcohol intake: never Substance use: never Substance use type: does not use Do You Feel Safe in your Home?: Yes Lack of Transportation: No Lack of Food: Never True Current Housing: I Have Housing Concerned About Future Housing: No Difficulty Paying Gas/Electric Bills: No Difficulty Paying for Meds: No Currently Unemployed: No Education: High School Diploma/GED Difficulty w/ Childcare or Family Care: No Gender identity (if verbalized by the patient): Female Sexual Orientation (if Verbalized by the Patient): Straight or Heterosexual Spiritual care concerns: No Agree to blood products: Yes Meds Home Medications and Allergies Home Medications ?Medication ?Instructions ?Recorded ?Confirmed ?Type levothyroxine 50 mcg tablet 50 mcg PO DAILY 03/05/25 03/24/25 History losartan 25 mg tablet 25 mg PO DAILY 03/05/25 03/24/25 History metoprolol succinate 100 mg 100 mg PO DAILY 03/05/25 03/24/25 History tablet,extended release 24 hr acetaminophen 325 mg capsule 650 mg PO Q8H PRN fever or pain 03/06/25 03/24/25 History aspirin 81 mg tablet 81 mg PO DAILY 03/06/25 03/24/25 History docusate sodium 100 mg capsule 100 mg PO DAILY PRN constipation 03/06/25 03/24/25 History celecoxib 100 mg capsule 100 mg PO DAILY #30 caps 03/09/25 03/24/25 Rx gabapentin 300 mg capsule 300 mg PO BID #60 caps 03/09/25 03/24/25 Rx guaifenesin 600 mg tablet, 600 mg PO BID #60 tabs 03/09/25 03/24/25 Rx extended release 12 hr tramadol 50 mg tablet 25 mg (1/2 x 50 mg) PO Q4H PRN 03/23/25 03/24/25 Rx Pain Rated 6 Or Greater #0 tabs Allergies Allergy/AdvReac Type Severity Reaction Status Date / Time Sulfa (Sulfonamide Allergy Mild Hives Verified 03/13/25 20:20 Antibiotics) euthambutal Allergy Mild Hives Uncoded 03/05/25 20:54 Exam Narrative: General: well-nourished, well-appearing 84-year-old female, sitting up in bed, comfortable, NARD Neuro: awake, alert and oriented x4, speech clear, no focal neuro deficits noted HEENMT: normocephalic, atraumatic, EOMI, sclerae anicteric, moist oral mucosa Respiratory: Clear to auscultation bilaterally without crackles, rhonchi or wheezes, nonlabored breathing Cardio: regular rate, regular rhythm with S1-S2 Abdomen: nondistended, normoactive bowel sounds, soft, nontender to palpation Extremities: no edema, erythema, or tenderness to palpation, DP pulses 2+ b ilaterally Skin: no rashes or lesions, warm and dry Psych: appropriate mood and affect, judgment and insight intact Assessment and Plan Assessment and plan (1) Debility: Code(s): R53.81 - Other malaise Status: Acute Assessment and Plan: * Continue PT and OT * Fall precautions * Standby assist (2) HTN (hypertension): Code(s): I10 - Essential (primary) hypertension Status: Acute Assessment and Plan: * Current BP 127/60 * Continue Home losartan 25 daily, metoprolol 100 daily * Trend Blood pressure * Adjust therapy as indicated (3) Hypothyroidism: Code(s): E03.9 - Hypothyroidism, unspecified Status: Acute Assessment and Plan: * Continue levothyroxine 50 mcg daily (4) Acute hypoxic respiratory failure: Code(s): J96.01 - Acute respiratory failure with hypoxia Status: Acute Assessment and Plan: * Currently pulse ox is 93% with * Patient is noted to the oxygen prior to arrival, however has been on room air since [facility] * Appears oxygen dropped to 79% on 03/08/2025 * Continue trend saturation * Supplement oxygen to maintain saturations greater than 90% * Adjust therapy as indicated * Most likely related to the pneumonia bronchiectasis that she has been treated for (5) Bronchiectasis: Qualifiers: Bronchiectasis type: with acute exacerbation Qualified Code(s): J47.1 - Bronchiectasis with (acute) exacerbation Code(s): J47.9 - Bronchiectasis, uncomplicated Status: Acute Assessment and Plan: * Recently treated for bronchiectasis * Stable * Continue Trend pulse ox and respiratory status * Supplemental oxygen as indicated maintain saturations greater than 90% Quality VTE Prophylaxis VTE prophylaxis: mechanical ordered and pharmacologic ordered Hospitalist MIPS Advance Care Plan I have confirmed that the patient's Advanced Care Plan is present, code status is documented, or surrogate decision maker is listed in patient medical record.: Yes Medication Reconciliation I have utilized all available resources to obtain, update and review the patients current medications (includes all prescriptions, OTC, herbals, cannabis, and nutritional supplements).: Yes
[2025-03-24 13:08] VITALS: PULSE 58; RESP 16; O2SAT 94
[2025-03-24 13:22] VITALS: BP 152/74; PULSE 58; RESP 16; TEMP 35.9; O2SAT 94
--- OUTSIDE RECORDS SUMMARY | 2025-03-24 14:05 | XMS_ITS | Clinical Summary ---
Author Organization [facility] Address [address] [place] [address] Care Team Providers Care Film Sound Coordinator Name Role Phone James Morse MD Primary Care Provider [phone] James Morse MD Unavailable [phone] Angie Claudio RN Unavailable Unavailable Source Comments [facility],non-[facility] Affiliates and Associated Physician Practices is amultiple site organization consisting of ambulatory clinics and hospital sitesin [place], [place]. This disclosure is being madepursuant to the Care Everywhere program and may not contain all information available regarding this patient. 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 Gender Identity Not on file Sexual Orientation [...] this topic Medical Devices Implanted Type Area Medical Delivery Technician Device Identifier Shelf Expiration Date Model / Serial / Lot Cmnt Bone Plc R 40gm Grn Implanted:Qty: 2 on 05/14/2017 by Smith Jennings MD at [facility] Right: Knee [employer] 12/23/2021 [id number] / / [id number] Nonporous Tibial Baseplate Implanted:Qty: 1 on 05/14/2017 by Smith Jennings MD at [facility] Right: Knee [employer] 04/14/2027 [id number] / / [id number] Size 4 Right Bi Cruciate Stabilized Journey Ii Bcs Oxinium Femoral Component Implanted:Qty: 1 on 05/14/2017 by Smith Jennings MD at [facility] Right: Knee [employer] 03/29/2027 [id number] / / [id number] Cmpnt Ptlr Ovl [id number] Gns2 Uhmwpe Kn Implanted:Qty: 1 on 05/14/2017 by Smith Jennings MD at [facility] Right: Knee [employer] 04/15/2027 [id number] / / [id number] Right Size 3-4 15mm Journey Ii Bcs Xlpe A/P 48mm M/L 68mm Articular Insert Implanted:Qty: 1 on 05/14/2017 by Smith Jennings MD at [facility] Right: Knee [employer] 12/29/2026 [id number] / / [id number] Explanted Type Area Medical Delivery Technician Device Identifier Shelf Expiration Date Model / Serial / Lot Ns Vis Cut Guide Jii Kit Rt Sz F4/T3 Explanted:Qty: 1 on 05/14/2017 at [facility] Right: Knee [employer] 08/03/2017 [id number] / / [id number] Insurance MEDICARE [facility] Advance Directives Documents on File Type Date Recorded Patient Utilities Estimator And Drafter Expl anation Adv Directive/Living Will/POA 05/19/2017 10:00 PM * Full Code (Latest Code Status on File) Date Activated Date Inactivated Comments 05/14/2017 2:40 PM 05/18/2017 6:58 PM Care Teams Film Sound Coordinator Relationship Specialty Start Date End Date James Mosre MD PCP - General Internal Medicine 10/17/16 James Morse MD Internal Medicine 10/17/16 Angie Claudio RN Case Manager 05/19/17
--- OUTSIDE RECORDS SUMMARY | 2025-03-24 14:05 | XMS_ITS | CONTINUITY OF CARE DOCUMENT ---
Author Name pratibha, pratibha Address Unknown Organization [facility] Address [address] [place] [address] Phone [phone] Care Team Providers Care Microsoft Access Developer Name Role Phone Eddie LUO, Héctor Unavailable [phone] LYLE LUU MD Unavailable [phone] LYLE LUU MD Unavailable [phone] PROBLEMS Condition Status Date Provider Notes Shortness of breath active Liviapatricia Alatorre Chest pain active Livia Alatorre INSURANCE PROVIDERS Payer name Policy type / Coverage type [place] red constitution party ID [facility] [id number] 1 [place] MEDICARE Medicare [id number] HISTORY OF PROCEDURES Procedure Date Procedure Name Provider Procedure Notes S tatus Stress EKG Loco Shaw MD completed Regadenoson, 4 units Héctor Morgan MD completed Cardiolite, 2 units Hétcor Morgan MD completed SPECT Images Héctor Morgan MD complet ed
--- OUTSIDE RECORDS SUMMARY | 2025-03-24 14:05 | XMS_ITS | Clinical Summary ---
Author Organization [facility] Address [address] [place] [address] Care Team Providers Care Transformation Analyst Name Role Phone James Morse MD Primary Care Provider [phone] Ji Rodriguez MD Unavailable [phone] Danielle Reinoso RN Unavailable Unavailable Nancy Sutton [...] 12/01/2024 Assessment & Plan (12/01/2024 12:29 PM GRAPHICS ARTIST): Followed by cardiology. Heart failure with reduced ejection fraction 03/2025 Assessment & Plan (12/01/2024 12:29 PM GRAPHICS ARTIST): Stable. 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 Will have her hold her evening losartan take losartan 50 in the morning and amlodipine 10 at HS. Primary osteoarthritis of left hip 08/27/2018 Assessment & Plan (12/01/2024 12:29 PM GRAPHICS ARTIST): Chronic. 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 Swelling of extremity [...] Type Department Care Team Description 03/07/2025 Telephone [facility] [address] [place] [address] James Morse MD Spoke With Home Health Provider 03/07/2025 E-Visit [facility] [address] [place] [address] James Morse MD Update on [...] on file Legal Sex Female 11:31 PM GRAPHICS ARTIST Gender Identity Female 03/12/2022 7:56 AM CDT Sexual Orientation Not on file Occupation Industry Job Start Date Job End Date Retired Not on file Not on file Not on file Obstetrics History Last Filed Vital Signs Vital Sign Reading Time Taken Comments Blood Pressure 129/76 12/01/2024 11:48 AM GRAPHICS ARTIST Pulse 76 12/01/2024 11:48 AM GRAPHICS ARTIST Temperature 36.4 C (97.6 F) 08/02/2019 1:07 PM CDT Respiratory Rate 16 08/02/2019 1:07 PM CDT Oxygen Saturation 93% 09/19/2024 4:07 PM GRAPHICS ARTIST Inhaled Oxygen Concentration - - Weight 63 kg (139 lb) 12/01/2024 11:48 AM GRAPHICS ARTIST Height 160 cm (5' 3) 12/01/2024 11:48 AM GRAPHICS ARTIST Body Mass Index 24.62 12/01/2024 11:48 AM GRAPHICS ARTIST Plan of Treatment Health Maintenance Due Date [...] Recently Relevant to Health Maintenance Insurance MEDICARE [facility] Member Subscriber Plan / Payer ( fective 2009-Present) Name:Chikis Arango Relation to Subscriber:Self Name:CHIKIS ARANGO Payer ID:[id number] (NAIC) Type:[employer] Address: [address] MEDICARE BLUE TRADITIONAL OOS [id number] TRADITIONAL OOS MEDICARE MEDICARE [place] TRADITIONAL OOS Member Subscriber Plan / Payer (Ef fective 2009-Present) Name:Chikis Arango Relation to Subscriber:Self Name:Chikis Arango Payer ID:[id number] (NAIC) Type:[facility] Address: [address] [place] [id number] Care Teams Transformation Analyst Relationship Specialty Start Date End Date James Morse MD PCP - General Internal Medicine 05/11/19 Ji Rodriguez MD Referring Physician Cardiology 08/05/22 Danielle Reinoso, yard rigger Failure Coordinator Transplant 11/25/23 Nancy Sutton RN Heart Failure Coordinator Cardiology 04/12/24
--- OUTSIDE RECORDS SUMMARY | 2025-03-24 14:05 | XMS_ITS | Encounter Summary ---
Author Organization [facility] Address [address] [place] [address] Care Team Providers Care Scagliola Mechanic Name Role Phone James Morse MD Primary Care Provider Ji Rodriguez MD Unavailable [phone] Danielle Reinoso RN Unavailable Unavailable Nancy Sutton RN Unavailable Unavailab le Encounter Details Date Type Department Care Team (Late st Contact Info) Description 03/07/2025 E-Visit [facility] [address] [address] James Morse MD [address] [place] [id number] Update on Chikis Arango Social History [...] on file Legal Sex Female 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 [employer] Gender Identity Female 03/12/2022 7:56 AM CDT Sexual Orientation Not on file Occupation Industry Job Start Date Job End Date Retired Not on file Not on file Not on file documented as of this encounter Plan of Treatment Not on file documented as of this encounter Visit Diagnoses Not on filedocumented in this encounter Care Teams Scagliola Mechanic Relationship Specialty Start Date End Date James Morse MD PCP - General Internal Medicine 05/11/19 Ji Rodriguez MD Referring Physician Cardiology 08/05/22 Danielle Reinoso, aboriginal education worker coordinator Failure Coordinator Transplant 11/25/23 Nancy Sutton, aboriginal education worker coordinator Failure Coordinator Cardiology 04/12/24 documented as of this encounter
--- OUTSIDE RECORDS SUMMARY | 2025-03-24 14:05 | XMS_ITS | Referral Summary ---
Author Organization [facility] Address [address] [place] [address] Care Team Providers Care Audit Reviewer Name Role Phone James Morse MD Primary Care Provider [phone] Ji Rodriguez MD Unavailable [phone] Danielle Reinoso RN Unavailable Unavailable Nancy Sutton RN Unavailable Unavailab le Encounters Date Type Department Care Team Description 03/07/2025 Telephone [facility] [address] [place] [address] [address] [place] [address] James Morse MD Spoke With Home Health Provider 03/07/2025 E-Visit [facility] [address] [place] [address] [address] [place] [address] James Morse MD Update on [...] 12/01/2024 Assessment & Plan (12/01/2024 12:29 PM QUEEN'S COUNSEL): Followed by cardiology. Heart failure with reduced ejection fraction 03/2025 Assessment & Plan (12/01/2024 12:29 PM QUEEN'S COUNSEL): Stable. 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 Will have her hold her evening losartan take losartan 50 in the morning and amlodipine 10 at HS. Primary osteoarthritis of left hip 08/27/2018 Assessment & Plan (12/01/2024 12:29 PM QUEEN'S COUNSEL): Chronic. 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 Swelling of extremity [...] on file Legal Sex Female 11:31 PM QUEEN'S COUNSEL Gender Identity Female 03/12/2022 7:56 AM CDT Sexual Orientation Not on file Occupation Industry Job Start Date Job End Date Retired Not on file Not on file Not on file Last Filed Vital Signs Vital Sign Reading Time Taken Comments Blood Pressure 129/76 12/01/2024 11:48 AM QUEEN'S COUNSEL Pulse 76 12/01/2024 11:48 AM QUEEN'S COUNSEL Temperature 36.4 C (97.6 F) 08/02/2019 1:07 PM CDT Respiratory Rate 16 08/02/2019 1:07 PM CDT Oxygen Saturation 93% 09/19/2024 4:07 PM QUEEN'S COUNSEL Inhaled Oxygen Concentration - - Weight 63 kg (139 lb) 12/01/2024 11:48 AM QUEEN'S COUNSEL Height 160 cm (5' 3) 12/01/2024 11:48 AM QUEEN'S COUNSEL Body Mass Index 24.62 12/01/2024 11:48 AM QUEEN'S COUNSEL Plan of Treatment Not on file Procedures [...] Recently Relevant to Health Maintenance Insurance MEDICARE [facility] BLUE TRADITIONAL OOS MEDICARE BLUE [employer]ITIONAL [employer] BLUE TRADITIONAL OOS MEDICARE MEDICARE [facility] Care Teams Audit Reviewer Relationship Specialty Start Date End Date James Morse MD PCP - General Internal Medicine 05/11/19 Ji Rodriguez MD Referring Physician Cardiology 08/05/22 Danielle Reinoso, director of plant operations Failure Coordinator Transplant 11/25/23 Nancy Sutton, director of plant operations Failure Coordinator Cardiology 04/12/24
--- OUTSIDE RECORDS SUMMARY | 2025-03-24 14:06 | XMS_ITS | Continuity of Care Document ---
Author Organization [facility] Address [address] [place] [address] Phone Care Team Providers Care Fondant Machine Operator Name Role Phone Kevin Shaw DO Unavailable Unavailable Advance Directives Directive Yes / No Effective Date File Name No Information Encounters Encounter Description Practice Location Reason(s) For Visit Diagnoses Date Provider Providers Copied on Encounter [facility], [address], [place], [place], [id number], [place] tel:[phone] [address] [facility] No Information Valeria Frederick. [address] [facility], [place], [address], [place]. tel: [phone] Family History Family Member Type Diagnosis Age At Onset No Information Payers Payer name Insurance type Covered republican ID Authoriza tion(s) No Information Social History [...]
[2025-03-24 16:00] VITALS: BP 125/76; PULSE 78; RESP 18; TEMP 36.2; O2SAT 97
[2025-03-24] MEDS: GABAPENTIN 300 MG CAPSULE PO (17:15)
[2025-03-24] MEDS: guaiFENesin 12 HR 600 MG TABCR PO (17:16)
[2025-03-24] MEDS: ACETAMINOPHEN 325 MG TABLET 650 MG PO (20:05)
[2025-03-25] VITALS: BP 150/62; PULSE 94; RESP 16; TEMP 36.7; O2SAT 94
[2025-03-25] MEDS: LEVOTHYROXINE SODIUM 50 MCG TABLET PO (07:49)
[2025-03-25 08:00] VITALS: BP 148/62; PULSE 86; RESP 14; TEMP 36.6; O2SAT 95
[2025-03-25] MEDS: guaiFENesin 12 HR 600 MG TABCR PO ×2 (09:34→16:56)
[2025-03-25 09:35] VITALS: PULSE 78
[2025-03-25] MEDS: CELECOXIB 100 MG CAPSULE PO (09:35)
[2025-03-25] MEDS: METOPROLOL SUCCINATE EXT REL 50 MG TABCR 100 MG PO (09:35)
[2025-03-25] MEDS: traMADol HCL (*CRX) 25 MG TABLET PO (09:35)
[2025-03-25] MEDS: GABAPENTIN 300 MG CAPSULE PO ×2 (09:35→21:39)
[2025-03-25] MEDS: LOSARTAN POTASSIUM 25 MG TABLET PO (09:37)
[2025-03-25] MEDS: ASPIRIN 81 MG ENTERIC TABLET PO (09:37)
[2025-03-25 10:35] VITALS: TEMP 36.6
[2025-03-25 16:30] VITALS: BP 135/66; PULSE 69; RESP 18; TEMP 36.2; O2SAT 95
[2025-03-25] MEDS: ACETAMINOPHEN 325 MG TABLET 650 MG PO (16:56)
[2025-03-25] MEDS: DOCUSATE SODIUM 100 MG CAPSULE PO (21:41)
--- NOTE | 2025-03-25 22:35 | PC.NURSE ---
Patient resting quietly in bed. SR up x2. Ambulates to bathroom with gait belt and walker with stand by assist. Pleasant and cooperative with care. Call light and belongings within reach.
[2025-03-26] VITALS: BP 155/70; PULSE 71; RESP 14; TEMP 36.2; O2SAT 92
--- NOTE | 2025-03-26 00:32 | PC.NURSE ---
Pt asleep and no signs of discomfort noted.
--- NOTE | 2025-03-26 02:20 | PC.NURSE ---
Pt asleep and no signs of discomfort noted.
--- NOTE | 2025-03-26 03:07 | PC.NURSE ---
Pt up to the bathroom with the walker, belt and assist of one. Pt voided and returned to bed to bed with the walker, belt and assist of one.
--- NOTE | 2025-03-26 05:10 | PC.NURSE ---
Pt up to the bathroom with the walker, belt and assist of one. Pt voided and returned to bed with the walker, belt and assist of one.
[2025-03-26] MEDS: ACETAMINOPHEN 325 MG TABLET 650 MG PO (07:10)
[2025-03-26] MEDS: traMADol HCL (*CRX) 25 MG TABLET PO ×2 (09:18→21:42)
[2025-03-26] MEDS: ASPIRIN 81 MG ENTERIC TABLET PO (09:18)
[2025-03-26] MEDS: GABAPENTIN 300 MG CAPSULE PO ×2 (09:18→21:36)
[2025-03-26] MEDS: DOCUSATE SODIUM 100 MG CAPSULE PO (09:18)
[2025-03-26 09:19] VITALS: PULSE 80
[2025-03-26] MEDS: METOPROLOL SUCCINATE EXT REL 50 MG TABCR 100 MG PO (09:19)
[2025-03-26] MEDS: guaiFENesin 12 HR 600 MG TABCR PO (09:20)
[2025-03-26] MEDS: CELECOXIB 100 MG CAPSULE PO (09:20)
[2025-03-26] MEDS: LOSARTAN POTASSIUM 25 MG TABLET PO (09:20)
[2025-03-26] MEDS: LEVOTHYROXINE SODIUM 50 MCG TABLET PO (09:20)
[2025-03-26 20:00] VITALS: PULSE 78; RESP 16; O2SAT 93
[2025-03-27] VITALS: BP 141/55; PULSE 61; RESP 18; TEMP 36.6; O2SAT 94
[2025-03-27] MEDS: LEVOTHYROXINE SODIUM 50 MCG TABLET PO (06:57)
[2025-03-27 08:00] VITALS: BP 109/58; PULSE 82; RESP 14; TEMP 36.4; O2SAT 95
[2025-03-27 09:25] LABS: NT Pro B Type Natriuretic Pept 1570 pg/mL (19.9-100)
[2025-03-27] MEDS: ASPIRIN 81 MG ENTERIC TABLET PO (09:39)
[2025-03-27] MEDS: guaiFENesin 12 HR 600 MG TABCR PO ×2 (09:40→17:24)
[2025-03-27] MEDS: CELECOXIB 100 MG CAPSULE PO (09:40)
[2025-03-27] MEDS: GABAPENTIN 300 MG CAPSULE PO ×2 (09:40→20:09)
[2025-03-27] MEDS: LOSARTAN POTASSIUM 25 MG TABLET PO (09:40)
[2025-03-27 09:41] VITALS: PULSE 78
[2025-03-27] MEDS: METOPROLOL SUCCINATE EXT REL 50 MG TABCR 100 MG PO (09:41)
[2025-03-27] MEDS: traMADol HCL (*CRX) 25 MG TABLET PO ×2 (09:41→20:08)
[2025-03-27] MEDS: DOCUSATE SODIUM 100 MG CAPSULE PO (09:43)
--- NOTE | 2025-03-27 10:42 | PC.NURSE ---
New orders received for Lasix 20mg IV BID then stop. Recheck BNP tomorrow.
[2025-03-27] MEDS: FUROSEMIDE 20 MG TABLET PO ×2 (11:33→17:24)
[2025-03-27 16:00] VITALS: BP 124/51; PULSE 74; RESP 18; TEMP 36.6; O2SAT 95
[2025-03-27] MEDS: ACETAMINOPHEN 325 MG TABLET 650 MG PO (17:47)
[2025-03-27 20:00] VITALS: PULSE 61; RESP 18; O2SAT 94
[2025-03-28] VITALS: BP 136/83; PULSE 62; RESP 16; TEMP 36.3; O2SAT 92
[2025-03-28 06:01] LABS: Anion Gap 2 mmol/L (4-12); Blood Urea Nitrogen 26 mg/dL (7-17); Calcium 8.8 mg/dL (8.4-10.2); Carbon Dioxide 27 mmol/L (22-30); Chloride 104 mmol/L (98-107); Estimated CRCL calculation 40 ml/min; Estimated Glomerular Filt Rate > 60; Glucose 87 mg/dL (65-110); Osmolality Calculated 279 mOsm/kg (285-295); Sodium 133 mmol/L (137-145)
[2025-03-28] MEDS: LEVOTHYROXINE SODIUM 50 MCG TABLET PO (06:39)
--- NOTE | 2025-03-28 06:58 | PC.NURSE ---
Verbal order received for BNP to be drawn today. BNP order placed Lab made aware.
[2025-03-28 07:17] LABS: NT Pro B Type Natriuretic Pept 1540 pg/mL (19.9-100)
[2025-03-28 08:00] VITALS: BP 136/58; PULSE 78; RESP 18; TEMP 36.6; O2SAT 96
[2025-03-28] MEDS: ACETAMINOPHEN 325 MG TABLET 650 MG PO (08:36)
[2025-03-28] MEDS: LOSARTAN POTASSIUM 25 MG TABLET PO (08:37)
[2025-03-28] MEDS: CELECOXIB 100 MG CAPSULE PO (08:37)
[2025-03-28 08:38] VITALS: PULSE 78
[2025-03-28] MEDS: METOPROLOL SUCCINATE EXT REL 50 MG TABCR 100 MG PO (08:38)
[2025-03-28] MEDS: ASPIRIN 81 MG ENTERIC TABLET PO (08:38)
[2025-03-28] MEDS: GABAPENTIN 300 MG CAPSULE PO ×2 (08:38→21:21)
[2025-03-28] MEDS: guaiFENesin 12 HR 600 MG TABCR PO ×2 (08:38→17:16)
[2025-03-28] MEDS: DOCUSATE SODIUM 100 MG CAPSULE PO (08:54)
[2025-03-28] MEDS: hydroCHLOROthiazide 12.5 MG CAPSULE PO (12:00)
[2025-03-28 16:00] VITALS: BP 108/54; PULSE 58; RESP 18; TEMP 36.1; O2SAT 95
[2025-03-28 20:00] VITALS: PULSE 65; RESP 18; O2SAT 94
[2025-03-28] MEDS: traMADol HCL (*CRX) 25 MG TABLET PO (21:20)
[2025-03-29] VITALS: BP 140/59; PULSE 73; RESP 16; TEMP 36.2; O2SAT 97
[2025-03-29] MEDS: LEVOTHYROXINE SODIUM 50 MCG TABLET PO (06:31)
[2025-03-29 08:00] VITALS: BP 76/48; PULSE 89; RESP 14; TEMP 35.9; O2SAT 95
[2025-03-29 09:50] LABS: Glucose Point of Care 163 mg/dl (65-105)
[2025-03-29] MEDS: DOCUSATE SODIUM 100 MG CAPSULE PO (09:58)
[2025-03-29] MEDS: ACETAMINOPHEN 325 MG TABLET 650 MG PO ×2 (10:06→20:24)
--- NOTE | 2025-03-29 10:14 | PM.EVENT ---
Event Note Event Note Event Note: Patient sitting in chair when nurse reported a low blood pressure 80's systolic over 40's manually. Patient has a history of waxing and wanning of BP's with multiple changes to her BP medications. Patient denied any dizziness, SOB, CP. Placed patient back into her bed and elevated feet with improvement to BP. I have adjusted patient BP medications will D/C Metoprolol and switch to carvedilol 6.25 b.i.d. BP tolerates, discontinued patient's hydrochlorothiazide can start back on an oral Lasix 20 mg daily once BP tolerates, and continue her losartan 25 mg we can adjust as needed pending on response to treatment.
--- NOTE | 2025-03-29 10:17 | PC.NURSE ---
Pt B/P of 76/48 reprted to the MASS COMMUNICATIONS INSTRUCTOR. B/p taken x3, Pt put in bed with feet elevated. B/P 106/ 51. MASS COMMUNICATIONS INSTRUCTOR will make medication changes .
--- NOTE | 2025-03-29 10:46 | PCPTNOTE ---
The patient treatment was not able to be completed on 03/29/25 due to low blood pressure and patient on hold for the am per WORK CAR OPERATOR. Will plan to check on patient this afternoon and continue treatment per plan of care if appropriate. -Regla Schmidt, PT
[2025-03-29] MEDS: GABAPENTIN 100 MG CAPSULE PO ×2 (14:14→17:08)
[2025-03-29] MEDS: traMADol HCL (*CRX) 25 MG TABLET PO (14:18)
[2025-03-29 16:00] VITALS: BP 105/56; PULSE 80; RESP 18; TEMP 36.3; O2SAT 92
[2025-03-29] MEDS: guaiFENesin 12 HR 600 MG TABCR PO (17:08)
[2025-03-29 20:00] VITALS: PULSE 83; RESP 16; O2SAT 96
[2025-03-29 20:24] VITALS: PULSE 83
[2025-03-29] MEDS: carvediloL 6.25 MG TABLET PO (20:24)
[2025-03-30] VITALS: BP 140/73; PULSE 83; RESP 16; TEMP 36.8; O2SAT 96
[2025-03-30] MEDS: ACETAMINOPHEN 325 MG TABLET 650 MG PO ×2 (05:33→17:34)
[2025-03-30] MEDS: LEVOTHYROXINE SODIUM 50 MCG TABLET PO (05:33)
[2025-03-30 08:00] VITALS: BP 150/93; PULSE 75; RESP 12; TEMP 36.2; O2SAT 96
[2025-03-30] MEDS: ASPIRIN 81 MG ENTERIC TABLET PO (09:27)
[2025-03-30] MEDS: traMADol HCL (*CRX) 25 MG TABLET PO ×2 (09:28→13:11)
[2025-03-30 09:30] VITALS: PULSE 75
[2025-03-30] MEDS: carvediloL 6.25 MG TABLET PO ×2 (09:30→20:28)
[2025-03-30] MEDS: GABAPENTIN 100 MG CAPSULE PO ×2 (09:32→12:59)
[2025-03-30] MEDS: FUROSEMIDE 20 MG TABLET PO (09:32)
[2025-03-30] MEDS: CELECOXIB 100 MG CAPSULE PO (09:32)
[2025-03-30] MEDS: guaiFENesin 12 HR 600 MG TABCR PO ×2 (09:33→17:34)
[2025-03-30] MEDS: LOSARTAN POTASSIUM 25 MG TABLET PO (09:35)
--- NOTE | 2025-03-30 13:42 | PC.NURSE ---
TELEVISION NEWS REPORTER made aware the family would like gabapentin increased some. PT feels tramadol helps some but feels the gabapentin helps the pain more. await reply.
[2025-03-30 15:40] VITALS: BP 123/72; PULSE 81; RESP 16; TEMP 36; O2SAT 97
[2025-03-30 20:00] VITALS: PULSE 81; RESP 16; O2SAT 97
[2025-03-30] MEDS: GABAPENTIN 100 MG CAPSULE 200 MG PO (20:26)
[2025-03-30 20:28] VITALS: PULSE 81
[2025-03-31] VITALS: BP 95/59; PULSE 85; RESP 16; TEMP 36.4; O2SAT 94
[2025-03-31] MEDS: GABAPENTIN 100 MG CAPSULE 200 MG PO ×3 (05:31→20:33)
[2025-03-31] MEDS: ACETAMINOPHEN 325 MG TABLET 650 MG PO ×3 (05:31→20:36)
[2025-03-31] MEDS: LEVOTHYROXINE SODIUM 50 MCG TABLET PO (05:32)
[2025-03-31 08:00] VITALS: BP 118/43; PULSE 81; RESP 14; TEMP 36.2; O2SAT 94
[2025-03-31] MEDS: LOSARTAN POTASSIUM 25 MG TABLET PO (09:42)
[2025-03-31] MEDS: CELECOXIB 100 MG CAPSULE PO (09:42)
[2025-03-31] MEDS: DOCUSATE SODIUM 100 MG CAPSULE PO (09:43)
[2025-03-31] MEDS: ASPIRIN 81 MG ENTERIC TABLET PO (09:43)
[2025-03-31] MEDS: FUROSEMIDE 20 MG TABLET PO (09:44)
[2025-03-31] MEDS: guaiFENesin 12 HR 600 MG TABCR PO ×2 (09:44→17:43)
--- NOTE | 2025-03-31 11:14 | P.PNIM_ITS ---
Progress Note: A&P Assessment and Plan (1) Debility: Code(s): R53.81 - Other malaise Status: Acute Assessment and Plan: * Continue PT and OT * Fall precautions * Standby assist * Needs Naya walker due to severe kyphosis and osteoarthritis (2) HTN (hypertension): Code(s): I10 - Essential (primary) hypertension Status: Acute Assessment and Plan: Patient sitting in chair when nurse reported a low blood pressure 80's systolic over 40's manually. Patient has a history of waxing and wanning of BP's with multiple changes to her BP medications. Patient denied any dizziness, SOB, CP. Placed patient back into her bed and elevated feet with improvement to BP. I have adjusted patient BP medications will D/C Metoprolol and switch to carvedilol 6.25 b.i.d. BP tolerates, discontinued patient's hydrochlorothiazide can start back on an oral Lasix 20 mg daily once BP tolerates, and continue her losartan 25 mg we can adjust as needed pending on response to treatment. * Current BP 127/60 * Continue Home losartan 25 daily * reduced carvedilol to 3.125 mg b.i.d. * Trend Blood pressure * Adjust therapy as indicated (3) Hypothyroidism: Code(s): E03.9 - Hypothyroidism, unspecified Status: Acute Assessment and Plan: * Continue levothyroxine 50 mcg daily (4) Acute hypoxic respiratory failure: Code(s): J96.01 - Acute respiratory failure with hypoxia Status: Acute Assessment and Plan: * Supplement oxygen to maintain saturations greater than 90% * Adjust therapy as indicated * Most likely related to the pneumonia bronchiectasis that she has been treated for (5) Arthritis pain: Code(s): M19.90 - Unspecified osteoarthritis, unspecified site Status: Acute Assessment and Plan: patient was initially getting gabapentin 300 mg b.i.d. but due to waxing and waning of BP change to t.i.d. 100 mg * increase to 200 mg t.i.d. with better pain control per patient (6) Bronchiectasis: Qualifiers: Bronchiectasis type: with acute exacerbation Qualified Code(s): J47.1 - Bronchiectasis with (acute) exacerbation Code(s): J47.9 - Bronchiectasis, uncomplicated Status: Resolved Assessment and Plan: RESOLVED Plan Code status: Full code per patient DVT prophylaxis: SCd's Stress ulcer prophylaxis: NA PT/OT notes: SWING bed progressing Disposition: Patient continues to progress with PT and OT plan to discharge back to home will need a naya a walker to assist regular walker is too big for patient due to her size and severe kyphosis. Time Spent With Patient Time with patient: 15 - 25 minutes Subjective Date/time seen: 03/31/25 11:14 Interval history: Patient is an 84-year-old female admitted to [facility] for rehabilitation after hospitalization due to physical deconditioned state. 03/31/2025: patient reports feeling better today had increased her gabapentin to 200 t.i.d. reports she is ambulating a little bit better with walker and blood pressure stabilizing patient denied any chest pain, shortness breath, nausea, vomiting. It has been discussed with patient and family the benefits for the patient to have a naya walker patient with severe kyphosis of the spine and osteoarthritis which a regular walker's size makes it difficult for her ambulation and progress with physical and occupational therapy. This would benefit to reduce potential falls at home and improve mobilization for patient. Review of Systems Review of Systems: All systems reviewed & are unremarkable except as noted in HPI and below Exam Narrative: General: NAD Neuro: awake, alert and oriented x4, Respiratory: RRR spine: kyphosis Cardio: RRR Abdomen: nondistended, normoactive bowel sounds, soft, nontender to palpation Skin: no rashes or lesions, warm and dry Psych: appropriate mood and affect Objective Data Vital Signs Vital Signs: Vital Signs - 24 hr 03/30/25 15:40 03/30/25 20:00 03/30/25 20:28 Temperature 96.8 F L Pulse Rate 81 81 81 Respiratory Rate 16 16 Blood Pressure 123/72 Pulse Oximetry 97 97 Oxygen Delivery Room Air Room Air 03/31/25 00:00 03/31/25 08:00 Temperature 97.6 F 97.2 F L Pulse Rate 85 81 Respiratory Rate 16 14 Blood Pressure 95/59 L 118/43 L Pulse Oximetry 94 94 Oxygen Delivery Room Air Room Air Intake/Output Intake/Output: Intake & Output 03/28/25 03/29/25 03/30/25 03/31/25 23:59 23:59 23:59 23:59 Intake Total 2009 1700 1890 675 Balance 2009 1700 1890 675 Meds/Results Medications: Active Medications Generic Name Dose Route Start Last Admin Trade Name Freq PRN Reason Stop Dose Admin Acetaminophen 650 mg 03/24/25 12:38 03/31/25 05:31 Acetaminophen 325 Mg Tablet PO 650 mg Q8H PRN Administration fever or pain 1-5 Aspirin 81 mg 03/25/25 09:00 03/31/25 09:43 Aspirin 81 Mg Enteric Tablet PO 81 mg QAM KARLI Administration Carvedilol 3.125 mg 03/31/25 09:00 Carvedilol 3.125 Mg Tablet PO Q12HR KARLI Celecoxib 100 mg 03/25/25 09:00 03/31/25 09:42 Celecoxib 100 Mg Capsule PO 100 mg DAILY KARLI Administration Docusate Sodium 100 mg 03/24/25 12:38 03/31/25 09:43 Docusate Sodium 100 Mg Capsule PO 100 mg DAILY PRN Administration constipation Furosemide 20 mg 03/30/25 09:00 03/31/25 09:44 Furosemide 20 Mg Tablet PO 20 mg DAILY KARLI Administration Gabapentin 200 mg 03/30/25 21:00 03/31/25 05:31 Gabapentin 100 Mg Capsule PO 200 mg Q8H KARLI Administration Guaifenesin 600 mg 03/24/25 17:00 03/31/25 09:44 Guaifenesin 12 Hr 600 Mg Tabcr PO 600 mg BID KARLI Administration Levothyroxine Sodium 50 mcg 03/27/25 06:30 03/31/25 05:32 Levothyroxine Sodium 50 Mcg Tablet PO 50 mcg DAILY@0630 KARLI Administration Losartan Potassium 25 mg 03/25/25 09:00 03/31/25 09:42 Losartan Potassium 25 Mg Tablet PO 25 mg DAILY KARLI Administration Tramadol HCl 25 mg 03/24/25 12:38 03/30/25 13:11 Tramadol Hcl (*Crx) 25 Mg Tablet PO 25 mg Q4H PRN Administration Pain Rated 6 Or Greater Quality VTE Prophylaxis VTE prophylaxis: mechanical ordered -Patient's previous records reviewed on admission -ER notes reviewed in detail on admission -discussed all findings and current treatment plan with patient/Family/POA -Consultations reviewed for recommendations -Patient's disposition for safe discharge discussed with adult protective caseworker Dictation performed by [employer] direct speech recognition software, therefore court security officer variants and typographical errors may occur. Hospitalist MIPS Advance Care Plan I have confirmed that the patient's Advanced Care Plan is present, code status is documented, or surrogate decision maker is listed in patient medical record.: Yes Medication Reconciliation I have utilized all available resources to obtain, update and review the pat ients current medications (includes all prescriptions, OTC, herbals, cannabis, and nutritional supplements).: Yes The patient is not eligible for med reconciliation; the patient is in a emergent medical situation where delaying treatment would jeopardize the patients health.: No
[2025-03-31 12:14] LABS: Hematocrit 40.4 % (35.0-42.0); Hemoglobin 13.1 g/dL (11.7-13.8); Mean Corpuscular HGB Conc 32.4 g/dL (32-36); Mean Corpuscular Hemoglobin 32.1 pg (27.0-31.0); Platelet Count Result 210 K/mm3 (150-420); Red Blood Count 4.08 M/mm3 (4.20-5.40); Red Cell Distribution Width 13.1 % (11.6-14.4); White Blood Count 7.1 K/mm3 (4.8-10.8)
[2025-03-31 13:31] LABS: Alanine Aminotransferase 36 U/L (6-35); Albumin Level 3.7 g/dL (3.5-5.1); Alkaline Phosphatase 65 U/L (38-126); Anion Gap 5 mmol/L (4-12); Aspartate Amino Transferase 35 U/L (14-36); Bilirubin,Total 0.5 mg/dL (0.2-1.3); Blood Urea Nitrogen 26 mg/dL (7-17); Carbon Dioxide 29 mmol/L (22-30); Chloride 101 mmol/L (98-107); Estimated CRCL calculation 35 ml/min; Estimated Glomerular Filt Rate 60; Glucose 90 mg/dL (65-110); Osmolality Calculated 284 mOsm/kg (285-295); Sodium 135 mmol/L (137-145); Total Protein 6.7 g/dL (6.3-8.2)
[2025-03-31 16:00] VITALS: BP 130/78; PULSE 92; RESP 16; TEMP 36.2; O2SAT 97
[2025-03-31 20:33] VITALS: PULSE 92
[2025-03-31] MEDS: carvediloL 3.125 MG TABLET PO (20:33)
[2025-03-31 20:36] VITALS: TEMP 36.4
[2025-04-01] VITALS: BP 110/64; PULSE 92; RESP 16; TEMP 36.4; O2SAT 94
[2025-04-01] MEDS: GABAPENTIN 100 MG CAPSULE 200 MG PO ×3 (05:41→21:27)
[2025-04-01] MEDS: LEVOTHYROXINE SODIUM 50 MCG TABLET PO (05:42)
[2025-04-01 08:00] VITALS: BP 152/75; PULSE 84; RESP 16; TEMP 36.5; O2SAT 97
[2025-04-01] MEDS: CELECOXIB 100 MG CAPSULE PO (08:25)
[2025-04-01] MEDS: FUROSEMIDE 20 MG TABLET PO (08:25)
[2025-04-01] MEDS: LOSARTAN POTASSIUM 25 MG TABLET PO (08:25)
[2025-04-01] MEDS: ASPIRIN 81 MG ENTERIC TABLET PO (08:25)
[2025-04-01 08:26] VITALS: PULSE 84
[2025-04-01] MEDS: guaiFENesin 12 HR 600 MG TABCR PO ×2 (08:26→17:09)
[2025-04-01] MEDS: carvediloL 3.125 MG TABLET PO ×2 (08:26→21:27)
[2025-04-01] MEDS: ACETAMINOPHEN 325 MG TABLET 650 MG PO (08:30)
[2025-04-01 16:00] VITALS: BP 133/80; PULSE 88; RESP 16; TEMP 36.6; O2SAT 96
[2025-04-01 20:00] VITALS: PULSE 84; RESP 16; O2SAT 96
[2025-04-01 21:27] VITALS: PULSE 84
[2025-04-02] VITALS: BP 125/58; PULSE 83; RESP 18; TEMP 36.4; O2SAT 93
[2025-04-02] MEDS: GABAPENTIN 100 MG CAPSULE 200 MG PO ×3 (05:12→20:47)
[2025-04-02] MEDS: LEVOTHYROXINE SODIUM 50 MCG TABLET PO (06:29)
[2025-04-02 08:00] VITALS: BP 151/95; PULSE 85; RESP 16; TEMP 36; O2SAT 97
[2025-04-02] MEDS: ACETAMINOPHEN 325 MG TABLET 650 MG PO (08:44)
[2025-04-02 08:45] VITALS: PULSE 85
[2025-04-02] MEDS: LOSARTAN POTASSIUM 25 MG TABLET PO (08:45)
[2025-04-02] MEDS: ASPIRIN 81 MG ENTERIC TABLET PO (08:45)
[2025-04-02] MEDS: FUROSEMIDE 20 MG TABLET PO (08:45)
[2025-04-02] MEDS: carvediloL 3.125 MG TABLET PO ×2 (08:45→20:46)
[2025-04-02] MEDS: guaiFENesin 12 HR 600 MG TABCR PO ×2 (08:45→16:47)
[2025-04-02] MEDS: CELECOXIB 100 MG CAPSULE PO (08:46)
--- NOTE | 2025-04-02 10:23 | PM.EVENT ---
Event Note Event Note Event Note: Patient would benefit from a medical hospital bed for home use due to her severe Kyphosis and osteoarthritis which makes it extremely difficult for patient to reposition herself or transfer out of bed with a normal bed. Patient requires Q 2 offloading for pain management and to reduce the development of pressure wounds due to her limited mobility secondary to her severe osteoarthritis. patient would also benefit from a variable height hospital bed due to her height and limited mobility secondary to pain and kyphosis to assist in patient's ability to transfer to chair her wheelchair or standing position. it would be preferred the patient also received side rails for safety enclosures this would not only assist in her ability to turn herself but also transfer from bed to wheelchair a walker allowing safety from a fall from bed. It has been discussed with patient and family the benefits for the patient to have a naya walker patient with severe kyphosis of the spine and osteoarthritis which a regular walker's size makes it difficult for her ambulation and progress with physical and occupational therapy. This would benefit to reduce potential falls at home and improve mobilization for patient.
[2025-04-02 16:00] VITALS: BP 87/60; PULSE 113; RESP 16; TEMP 36.5; O2SAT 95
[2025-04-02 20:00] VITALS: PULSE 108; RESP 16; O2SAT 95
[2025-04-02 20:46] VITALS: PULSE 108
[2025-04-03] VITALS: BP 104/61; PULSE 103; RESP 18; TEMP 36.4; O2SAT 96
[2025-04-03] MEDS: GABAPENTIN 100 MG CAPSULE 200 MG PO ×3 (05:04→20:35)
[2025-04-03] MEDS: LEVOTHYROXINE SODIUM 50 MCG TABLET PO (06:25)
[2025-04-03 08:00] VITALS: BP 93/51; PULSE 108; RESP 14; TEMP 36.5; O2SAT 98
[2025-04-03] MEDS: FUROSEMIDE 20 MG TABLET PO (09:37)
[2025-04-03] MEDS: ASPIRIN 81 MG ENTERIC TABLET PO (09:37)
[2025-04-03 09:38] VITALS: PULSE 108
[2025-04-03] MEDS: guaiFENesin 12 HR 600 MG TABCR PO ×2 (09:38→17:54)
[2025-04-03] MEDS: carvediloL 3.125 MG TABLET PO ×2 (09:38→20:28)
[2025-04-03] MEDS: DOCUSATE SODIUM 100 MG CAPSULE PO (09:38)
[2025-04-03] MEDS: LOSARTAN POTASSIUM 25 MG TABLET PO (09:38)
[2025-04-03] MEDS: CELECOXIB 100 MG CAPSULE PO (09:38)
[2025-04-03] MEDS: ACETAMINOPHEN 325 MG TABLET 650 MG PO (09:46)
[2025-04-03 16:40] VITALS: BP 140/54; PULSE 87; RESP 16; TEMP 36.2; O2SAT 97
[2025-04-03 20:00] VITALS: PULSE 89; RESP 16; O2SAT 97
[2025-04-03 20:28] VITALS: PULSE 89
[2025-04-04] VITALS: BP 104/68; PULSE 98; RESP 16; TEMP 36.4; O2SAT 93
[2025-04-04] MEDS: LEVOTHYROXINE SODIUM 50 MCG TABLET PO (05:35)
[2025-04-04] MEDS: GABAPENTIN 100 MG CAPSULE 200 MG PO ×3 (05:35→20:08)
[2025-04-04 08:00] VITALS: BP 95/57; PULSE 102; RESP 14; TEMP 36.4; O2SAT 94
[2025-04-04 09:36] VITALS: PULSE 102
[2025-04-04] MEDS: ASPIRIN 81 MG ENTERIC TABLET PO (09:36)
[2025-04-04] MEDS: FUROSEMIDE 20 MG TABLET PO (09:36)
[2025-04-04] MEDS: carvediloL 3.125 MG TABLET PO ×2 (09:36→20:08)
[2025-04-04] MEDS: DOCUSATE SODIUM 100 MG CAPSULE PO (09:36)
[2025-04-04] MEDS: CELECOXIB 100 MG CAPSULE PO (09:36)
[2025-04-04] MEDS: ACETAMINOPHEN 325 MG TABLET 650 MG PO ×2 (09:37→20:15)
[2025-04-04] MEDS: LOSARTAN POTASSIUM 25 MG TABLET PO (09:37)
[2025-04-04 11:00] VITALS: BP 151/68; PULSE 73; RESP 14; TEMP 36.4; O2SAT 95
--- NOTE | 2025-04-04 13:20 | PM.EVENT ---
Event Note Event Note Event Note: Patient would benefit from a medical hospital bed for home use due to her severe Kyphosis and osteoarthritis which makes it extremely difficult for patient to reposition herself due to pain with a normal bed. Patient requires Q 2 offloading for pain management and to reduce the development of pressure wounds due to her limited mobility secondary to her severe osteoarthritis. patient would also benefit from a variable height hospital bed due to her height and limited mobility secondary to pain and kyphosis to assist in patient's ability to transfer to chair her wheelchair or standing position. it would be preferred the patient also received side rails for safety enclosures this would not only assist in her ability to turn herself but also transfer from bed to wheelchair a walker allowing safety from a fall from bed. Patient requires semi electric hospital bed due to the need of frequent changes in body position to alleviate her pain which are not feasible with an ordinary bed It has been discussed with patient and family the benefits for the patient to have a naya walker patient with severe kyphosis of the spine and osteoarthritis which a regular walker's size makes it difficult for her ambulation and progress with physical and occupational therapy. This would benefit to reduce potential falls at home and improve mobilization for patient.
[2025-04-04 16:30] VITALS: BP 119/69; PULSE 87; RESP 16; TEMP 35.9; O2SAT 98
[2025-04-04] MEDS: guaiFENesin 12 HR 600 MG TABCR PO (17:21)
[2025-04-05] VITALS: BP 126/73; PULSE 87; RESP 18; TEMP 36.1; O2SAT 98
[2025-04-05] MEDS: GABAPENTIN 100 MG CAPSULE 200 MG PO ×3 (05:32→20:07)
[2025-04-05] MEDS: LEVOTHYROXINE SODIUM 50 MCG TABLET PO (05:33)
[2025-04-05 08:00] VITALS: BP 105/63; PULSE 92; RESP 14; TEMP 36.6; O2SAT 97
[2025-04-05] MEDS: DOCUSATE SODIUM 100 MG CAPSULE PO (09:30)
[2025-04-05] MEDS: ACETAMINOPHEN 325 MG TABLET 650 MG PO ×2 (09:30→20:07)
[2025-04-05] MEDS: LOSARTAN POTASSIUM 25 MG TABLET PO (09:30)
[2025-04-05] MEDS: ASPIRIN 81 MG ENTERIC TABLET PO (09:30)
[2025-04-05] MEDS: CELECOXIB 100 MG CAPSULE PO (09:31)
[2025-04-05 09:32] VITALS: PULSE 92
[2025-04-05] MEDS: guaiFENesin 12 HR 600 MG TABCR PO (09:32)
[2025-04-05] MEDS: FUROSEMIDE 20 MG TABLET PO (09:32)
[2025-04-05] MEDS: carvediloL 3.125 MG TABLET PO ×2 (09:32→20:07)
[2025-04-05 16:00] VITALS: BP 134/77; PULSE 95; RESP 15; TEMP 36.9; O2SAT 95
--- NOTE | 2025-04-05 18:45 | PC.NURSE ---
ASSUMED CARE. REPORT RECEIVED FROM KIET NORTON
--- NOTE | 2025-04-05 20:02 | PC.NURSE ---
PATIENT AMBULATED WITH WALKER/GAIT BELT TO THE BATHROOM. STEADY GAIT.
[2025-04-05 20:07] VITALS: PULSE 104
[2025-04-06] VITALS: BP 112/74; PULSE 103; RESP 18; TEMP 36.1; O2SAT 97
[2025-04-06] MEDS: GABAPENTIN 100 MG CAPSULE 200 MG PO ×3 (07:06→20:43)
[2025-04-06] MEDS: LEVOTHYROXINE SODIUM 50 MCG TABLET PO (07:06)
--- NOTE | 2025-04-06 07:09 | PC.NURSE ---
REPORT GIVEN TO ADOLFO NORTON
[2025-04-06 08:00] VITALS: BP 164/79; PULSE 92; RESP 16; TEMP 36.4; O2SAT 95
[2025-04-06] MEDS: guaiFENesin 12 HR 600 MG TABCR PO ×2 (09:41→16:13)
[2025-04-06] MEDS: ASPIRIN 81 MG ENTERIC TABLET PO (09:41)
[2025-04-06] MEDS: CELECOXIB 100 MG CAPSULE PO (09:41)
--- NOTE | 2025-04-06 10:38 | ECG_ITS ---
Test Date: 2025-04-06 11:00:05 Measurements Intervals [place] Rate: 93 P: 268 IN: 274 QRS: -74 QRSD: 126 T: 77 QT: 349 QTc: 436 Interpretive Statements SINUS RHYTHM WITH MARKED FIRST DEGREE AV BLOCK LEFT AXIS DEVIATION LEFT BUNDLE BRANCH BLOCK BASELINE ARTIFACT- I, AVR, AVL, V1-V2 ABNORMAL ECG Compared to ECG 03/05/2025 21:04:50 NO SIGNIFICANT CHANGE Electronically Signed On 04-06-2025 11:13:09 CDT by Rodrigo Mcfadden D.O.
[2025-04-06 11:09] LABS: Basophils Absolute Auto 0.03 K/mm3 (0.00-0.10); Basophils Percent Auto 0.5 % (0.0-1.0); Eosinophils Absolute Auto 0.12 K/mm3 (0.02-0.50); Eosinophils Percent Auto 1.8 % (1.0-6.0); Hematocrit 38.9 % (35.0-42.0); Hemoglobin 12.9 g/dL (11.7-13.8); Immature Granulocyte Absolute 0.03 K/mm3 (0.00-0.00); Immature Granulocyte Percent A 0.5 % (0.0-0.0); Lymphocytes Absolute Auto 0.82 K/mm3 (1.10-4.50); Lymphocytes Percent Auto 12.6 % (18.0-42.0); Mean Corpuscular HGB Conc 33.2 g/dL (32-36); Mean Corpuscular Hemoglobin 32.3 pg (27.0-31.0); Mean Corpuscular Volume 97.5 fL (78.0-102.0); Monocytes Absolute Auto 0.61 K/mm3 (0.10-0.90); Monocytes Percent Auto 9.4 % (2.0-11.0); Neutrophils Absolute Auto 4.89 K/mm3 (1.70-7.20); Neutrophils Percent Auto 75.2 % (50.0-70.0); Platelet Count Result 187 K/mm3 (150-420); Red Blood Count 3.99 M/mm3 (4.20-5.40); White Blood Count 6.5 K/mm3 (4.8-10.8)
[2025-04-06 11:21] LABS: Alanine Aminotransferase 21 U/L (6-35); Albumin Level 3.8 g/dL (3.5-5.1); Alkaline Phosphatase 63 U/L (38-126); Anion Gap 3 mmol/L (4-12); Aspartate Amino Transferase 25 U/L (14-36); Bilirubin,Total 0.4 mg/dL (0.2-1.3); Blood Urea Nitrogen 24 mg/dL (7-17); Calcium 8.8 mg/dL (8.4-10.2); Carbon Dioxide 28 mmol/L (22-30); Chloride 100 mmol/L (98-107); Estimated CRCL calculation 36 ml/min; Estimated Glomerular Filt Rate > 60; Glucose 67 mg/dL (65-110); Osmolality Calculated 274 mOsm/kg (285-295); Potassium 5.1 mmol/L (3.4-5.0); Sodium 131 mmol/L (137-145); Total Protein 6.8 g/dL (6.3-8.2)
--- NOTE | 2025-04-06 11:27 | PM.IMPN ---
Progress Note: A&P Assessment and Plan (1) Hypotension: Code(s): I95.9 - Hypotension, unspecified Status: Acute Assessment and Plan: Patient developed low BP on April 02 to 87/60 and again this morning. She states that some of her anti-HTN medications have already been stopped recently prior to admission (at the hospital and at [facility]) related to wide flucuations in BP. She was checking her BP at home prior to being hospitalized and it has been stable. EKG ordered and showing sinus with 1st degree AVB, (chronic) left BBB, amd LAD but no change from prior EKGs CBC showing no anemia and normal WBC. Troponin negative. Sodium low at 131 and Potassium 5.1. She is on Cozaar and Lasix which have been held. TSH pending. Hold Coreg as well but resume if BP improves. Consider related to aortic stenosis. Check orthostatics. (2) HTN (hypertension): Code(s): I10 - Essential (primary) hypertension Status: Acute Assessment and Plan: On April 02, patient sitting in chair when nurse reported a low blood pressure 80's systolic over 40's manually. Patient has a history of waxing and waning of BP's with multiple changes to her BP medications. Patient denied any dizziness, SOB, CP. Placed patient back into her bed and elevated feet with improvement to BP. Metoprolol stopped and switched to carvedilol 6.25 b.i.d. HCTZ stopped. BP dropped again today as outlined above. Holding Coreg, Losartan and Lasix for now. Resume Coreg as BP allows. Adjust therapy as indicated (3) Debility: Code(s): R53.81 - Other malaise Status: Acute Assessment and Plan: As above. Fall precautions and standby assist Patient will need a Naya walker due to severe kyphosis and osteoarthritis Adjust PT and OT due to low BP (4) Hypothyroidism: Code(s): E03.9 - Hypothyroidism, unspecified Status: Acute Assessment and Plan: No TSH recorded. Continue levothyroxine 50 mcg daily Check TSH. (5) Arthritis pain: Code(s): M19.90 - Unspecified osteoarthritis, unspecified site Status: Acute Assessment and Plan: Patient arthritic pain. She was initially getting gabapentin 300 mg b.i.d. but due to waxing and waning of BP, this was changed to 100 mg t.i.d. Changed to 200 mg t.i.d. the next day with better pain control per patient Remains on Celebrex scheduled with ultram and tylenol available prn Follow (6) Bronchiectasis: Qualifiers: Bronchiectasis type: with acute exacerbation Qualified Code(s): J47.1 - Bronchiectasis with (acute) exacerbation Code(s): J47.9 - Bronchiectasis, uncomplicated Status: Resolved Assessment and Plan: Patient with known bronchictasis. She feels her SOB is close to baseline. She follows with Pulmonary Monitor (7) Acute hypoxic respiratory failure: Code(s): J96.01 - Acute respiratory failure with hypoxia Status: Acute Assessment and Plan: As above. Acute resp failure resolved Plan Code status: Full code per patient DVT prophylaxis: SCDs PT/OT notes: SWING bed progressing Disposition: Patient continues to progress with PT and OT plan to discharge back to home will need a naya a walker to assist regular walker is too big for patient due to her size and severe kyphosis. Subjective Date/time seen: 04/06/25 11:27 Interval history: 84yo female with HTN, HLD and bronchiectasis here for rehab after being hospitalized for PNA. Assuming care. Chart reviewed. Patient slept well. No SOB but some GOTTLIEB that she feels is close to her baseline. No CP. After my visit, patient had a drop in her BP to 87/49 and stated 'I just don't feel right'. No CP. Exam Narrative: AF 97.5 164/79 92 16 95% ra Gen - NARD sitting in the chair Chest - few bibasilar rhonchi. CV - RRR S1/S2, 2/6 systolic murmur loudest USB Abd - Soft, NT/ND, Positive BS Ext - nonpitting pedal edema Neuro - Alert and appropriate Psych - Nml mood and affect Skin - Warm and dry General: NAD Neuro: awake, alert and oriented x4, Respiratory: RRR spine: kyphosis Cardio: RRR Abdomen: nondistended, normoactive bowel sounds, soft, nontender to palpation Skin: no rashes or lesions, warm and dry Psych: appropriate mood and affect Objective Data Vital Signs Vital Signs: Vital Signs - 24 hr 04/05/25 16:00 04/05/25 20:07 04/06/25 00:00 Temperature 98.4 F 96.9 F L Pulse Rate 95 104 H 103 H Respiratory Rate 15 18 Blood Pressure 134/77 112/74 Pulse Oximetry 95 97 Oxygen Delivery Room Air Room Air 04/06/25 08:00 Temperature 97.5 F L Pulse Rate 92 Respiratory Rate 16 Blood Pressure 164/79 H Pulse Oximetry 95 Oxygen Delivery Room Air Intake/Output Intake/Output: Intake & Output 04/03/25 04/04/25 04/05/25 04/06/25 23:59 23:59 23:59 23:59 Intake Total 2415 2840 1850 1000 Output Total 1 Balance 2415 2840 1850 999 Meds/Results Medications: Active Medications Generic Name Dose Route Start Last Admin Trade Name Freq PRN Reason Stop Dose Admin Acetaminophen 650 mg 03/24/25 12:38 04/05/25 20:07 Acetaminophen 325 Mg Tablet PO 650 mg Q8H PRN Administration fever or pain 1-5 Aspirin 81 mg 03/25/25 09:00 04/06/25 09:41 Aspirin 81 Mg Enteric Tablet PO 81 mg QAM KARLI Administration Carvedilol 3.125 mg 03/31/25 09:00 04/06/25 09:42 Carvedilol 3.125 Mg Tablet PO Not Given Q12HR KARLI Celecoxib 100 mg 03/25/25 09:00 04/06/25 09:41 Celecoxib 100 Mg Capsule PO 100 mg DAILY KARLI Administration Docusate Sodium 100 mg 03/24/25 12:38 04/05/25 09:30 Docusate Sodium 100 Mg Capsule PO 100 mg DAILY PRN Administration constipation Furosemide 20 mg 03/30/25 09:00 04/06/25 09:42 Furosemide 20 Mg Tablet PO Not Given DAILY KARLI Gabapentin 200 mg 03/30/25 21:00 04/06/25 07:06 Gabapentin 100 Mg Capsule PO 200 mg Q8H KARLI Administration Guaifenesin 600 mg 03/24/25 17:00 04/06/25 09:41 Guaifenesin 12 Hr 600 Mg Tabcr PO 600 mg BID KARLI Administration Levothyroxine Sodium 50 mcg 03/27/25 06:30 04/06/25 07:06 Levothyroxine Sodium 50 Mcg Tablet PO 50 mcg DAILY@0630 KARLI Administration Losartan Potassium 25 mg 03/25/25 09:00 04/06/25 09:42 Losartan Potassium 25 Mg Tablet PO Not Given DAILY KARLI Tramadol HCl 25 mg 03/24/25 12:38 03/30/25 13:11 Tramadol Hcl (*Crx) 25 Mg Tablet PO 25 mg Q4H PRN Administration Pain Rated 6 Or Greater Labs Labs: Laboratory Results - last 24 hr 04/06/25 11:05 WBC 6.5 RBC 3.99 L Hgb 12.9 Hct 38.9 MCV 97.5 MCH 32.3 H MCHC 33.2 RDW 13.0 Plt Count 187 MPV 9.0 L Immature Gran % (Auto) 0.5 H Neut % (Auto) 75.2 H Lymph % (Auto) 12.6 L [place] % (Auto) 9.4 Eos % (Auto) 1.8 Baso % (Auto) 0.5 Lymph # (Auto) 0.82 L [place] # (Auto) 0.61 Eos # (Auto) 0.12 Baso # (Auto) 0.03 Abs Immat Gran (auto) 0.03 H Absolute Neuts (auto) 4.89 Absolute Nucleated RBC 0.00 Nucleated RBC % 0.0
[2025-04-06 11:34] LABS: Troponin I < 0.012 ng/mL (0.000-0.034)
[2025-04-06 16:00] VITALS: BP 113/68; PULSE 94; RESP 18; TEMP 36.4; O2SAT 95
[2025-04-06] MEDS: ACETAMINOPHEN 325 MG TABLET 650 MG PO (16:13)
[2025-04-06] MEDS: traMADol HCL (*CRX) 25 MG TABLET PO (18:06)
[2025-04-06 20:00] VITALS: PULSE 98; RESP 16; O2SAT 94
[2025-04-06 20:43] VITALS: PULSE 98
[2025-04-06] MEDS: carvediloL 3.125 MG TABLET PO (20:43)
[2025-04-07] VITALS: BP 146/82; PULSE 98; RESP 16; TEMP 36.4; O2SAT 94
[2025-04-07 05:32] LABS: Hematocrit 37.9 % (35.0-42.0); Hemoglobin 12.7 g/dL (11.7-13.8); Mean Corpuscular HGB Conc 33.5 g/dL (32-36); Mean Corpuscular Hemoglobin 32.2 pg (27.0-31.0); Mean Corpuscular Volume 96.2 fL (78.0-102.0); Mean Platelet Volume 9.2 fl (9.2-11.8); Platelet Count Result 183 K/mm3 (150-420); Red Blood Count 3.94 M/mm3 (4.20-5.40); Red Cell Distribution Width 12.8 % (11.6-14.4); White Blood Count 5.9 K/mm3 (4.8-10.8)
[2025-04-07 05:44] LABS: Alanine Aminotransferase 20 U/L (6-35); Albumin Level 3.7 g/dL (3.5-5.1); Alkaline Phosphatase 70 U/L (38-126); Anion Gap 3 mmol/L (4-12); Aspartate Amino Transferase 25 U/L (14-36); Bilirubin,Total 0.6 mg/dL (0.2-1.3); Blood Urea Nitrogen 22 mg/dL (7-17); Calcium 8.9 mg/dL (8.4-10.2); Carbon Dioxide 25 mmol/L (22-30); Chloride 103 mmol/L (98-107); Estimated CRCL calculation 42 ml/min; Estimated Glomerular Filt Rate > 60; Glucose 88 mg/dL (65-110); Osmolality Calculated 274 mOsm/kg (285-295); Potassium 4.4 mmol/L (3.4-5.0); Sodium 131 mmol/L (137-145); Total Protein 6.6 g/dL (6.3-8.2)
[2025-04-07] MEDS: GABAPENTIN 100 MG CAPSULE 200 MG PO ×2 (05:55→12:14)
[2025-04-07] MEDS: ACETAMINOPHEN 325 MG TABLET 650 MG PO (06:16)
[2025-04-07] MEDS: LEVOTHYROXINE SODIUM 50 MCG TABLET PO (06:16)
[2025-04-07 08:00] VITALS: BP 124/84; PULSE 84; RESP 18; TEMP 36.2; O2SAT 96
[2025-04-07] MEDS: CELECOXIB 100 MG CAPSULE PO (08:36)
[2025-04-07 08:37] VITALS: PULSE 84
[2025-04-07] MEDS: LOSARTAN POTASSIUM 25 MG TABLET PO (08:37)
[2025-04-07] MEDS: FUROSEMIDE 20 MG TABLET PO (08:37)
[2025-04-07] MEDS: carvediloL 3.125 MG TABLET PO (08:37)
[2025-04-07] MEDS: guaiFENesin 12 HR 600 MG TABCR PO (08:37)
[2025-04-07] MEDS: ASPIRIN 81 MG ENTERIC TABLET PO (08:37)
[2025-04-07 09:48] VITALS: BP 90/60; RESP 18; O2SAT 94
--- NOTE | 2025-04-07 12:46 | P.DS_ITS ---
DS: Admitting Diagnosis Discharge Date 04/07/25 Admitting Diagnosis Physical debility DS: Discharge Diagnosis Discharge Diagnosis (1) Hypotension: Code(s): I95.9 - Hypotension, unspecified Status: Acute (2) HTN (hypertension): Code(s): I10 - Essential (primary) hypertension Status: Acute (3) Debility: Code(s): R53.81 - Other malaise Status: Acute (4) Hypothyroidism: Code(s): E03.9 - Hypothyroidism, unspecified Status: Acute (5) Arthritis pain: Code(s): M19.90 - Unspecified osteoarthritis, unspecified site Status: Acute (6) Bronchiectasis: Qualifiers: Bronchiectasis type: with acute exacerbation Qualified Code(s): J47.1 - Bronchiectasis with (acute) exacerbation Code(s): J47.9 - Bronchiectasis, uncomplicated Status: Resolved (7) Acute hypoxic respiratory failure: Code(s): J96.01 - Acute respiratory failure with hypoxia Status: Acute DS: Summary Hospital Course Reason for hospitalization: 84yo female with HTN, HLD and bronchiectasis here for rehab after being hospitalized for PNA. Please see H&P for details. Hospital Course: Patient was admitted for rehab after being hospitalized for PNA. She tolerated therapy well. She did develop low BP at times while hospitalized. Patient has a history of waxing and waning of BP's with multiple changes to her BP medications. EKG ordered and showing sinus with 1st degree AVB, (chronic) left BBB, and LAD but no change from prior EKGs. CBC showing no anemia and normal WBC. Troponin negative. Sodium low at 131 and Potassium 5.1. She was on Coreg, Cozaar and Lasix which were held. TSH normal. Coreg resumed. Lasix changed to prn for edema and Cozaar stopped. She was under fall precautions and standby assist. Patient will need a Kyle walker due to severe kyphosis and osteoarthritis. Patient continues to have arthritic pain. She was initially getting gabapentin 300 mg b.i.d. but due to waxing and waning of BP, the dose was changed. She remains on celebrex. Patient with known bronchiectasis. She feels her SOB is close to baseline. She is asymptomatic today. She is tolerating therapy. She overall did well and was able to be discharged home on 04/07/25. Status at Discharge Cognitive/behavioral status at discharge: stable Time Spent with Patient Time attestation: Total time spent providing and/or coordinating discharge services: 34 minutes Time spent: Greater than 30 minutes Exam Narrative: AF 97.2 90/60 -> 124/80 84 18 94% ra Gen - NARD sitting in the chair Chest - R>L bibasilar rhonchi. CV - RRR S1/S2, 2/6 systolic murmur Abd - Soft, NT/ND, Positive BS Ext - compression hose in place Neuro - Alert and appropriate Psych - Nml mood and affect Skin - Warm and dry DS: Data Data Completed and Pending Labs on day of discharge: Labs from last 24 hours 04/07/25 05:27 WBC 5.9 RBC 3.94 L Hgb 12.7 Hct 37.9 MCV 96.2 MCH 32.2 H MCHC 33.5 RDW 12.8 Plt Count 183 MPV 9.2 Sodium 131 L Potassium 4.4 Chloride 103 Carbon Dioxide 25 Anion Gap 3 L BUN 22 H Creatinine 0.74 Estim Creat Clear Calc 42 Estimated GFR > 60 Glucose 88 Calculated Osmolality 274 L Calcium 8.9 Total Bilirubin 0.6 AST 25 ALT 20 Alkaline Phosphatase 70 Total Protein 6.6 Albumin 3.7 Discharge Plan Discharge Attending physician on discharge: Darío Coulter Consulting providers: Nancy Beckham Discharging Clinician: Darío Coulter Anticipated Discharge Date/Time: 04/07/25 13:08 Patient Disposition: Home with Home Health Service Activity: as tolerated Diet: heart healthy Discharge Instructions: Per Care Coordination: [facility] will follow you at discharge for senior care, physical therapy, and occupational therapy. They will plan to see you on Thursday, April 08, but will call you with a date and time. Check blood pressure 1 to 2 times a day. Record and bring into your doctor for review. Call your doctor if your blood pressure is greater than 180/110 or less than 100/50. Take precautions to avoid falls. Rise slowly from a lying or sitting position. Pause before standing or walking. Check daily morning weights after voiding. Call your doctor if you gain more than 3 lb in 2 days or 5 lb in 1 week. Contact your doctor or call 911 and come to the Emergency Room if you have any chest pain, lightheadedness with standing or other worrisome symptoms. Avoid NSAIDs (ibuprofen, naproxen, Aleve). Tylenol is safe to take. Follow-up with your primary care provider in 1-2 weeks. Please call for appointment. Follow-up with your trial consultant next week as scheduled. Thank you for using [facility] for your health care needs. Patient Instructions: Antibiotic Form Patient Language: Kyrgyz Stand Alone Forms: General Discharge Information Follow-up/Referrals: Ana*,James Mireles MD [Primary Care Provider] - Call for Appointment Discharge Medications: New furosemide 20 mg Tablet 20 mg PO DAILY PRN (Reason: Edema) Qty: 30 0RF carvedilol [Coreg] 3.125 mg Tablet 3.125 mg PO Q12HR Qty: 60 1RF Continued levothyroxine 50 mcg tablet 50 mcg PO DAILY aspirin 81 mg tablet 81 mg PO DAILY docusate sodium 100 mg capsule 100 mg PO DAILY PRN (Reason: constipation) acetaminophen 325 mg capsule 650 mg PO Q8H PRN (Reason: fever or pain) guaifenesin 600 mg tablet extended release 12hr 600 mg PO BID Qty: 60 0RF gabapentin 300 mg capsule 300 mg PO BID Qty: 60 0RF celecoxib 100 mg capsule 100 mg PO DAILY Qty: 30 0RF Changed tramadol 50 mg Tablet 25 mg PO Q6H PRN (Reason: Pain Rated 6 Or Greater) Qty: 10 0RF Held losartan 25 mg tablet 25 mg PO DAILY Hold Instructions: GHOLD - Resume when okay with your doctor Discontinued metoprolol succinate 100 mg tablet extended release 24 hr 100 mg PO DAILY Date of admission: 03/24/25 12:03 Primary Care Provider: HarjeetJames Admitting Provider: Harjeet Oliva Attending physician on admission: Harjeet Oliva Condition: Stable Hospitalist MIPS Heart Failure (Exclusion) Patient has history of Heart Transplant or Left Ventricular Assistive Device?: No IF YES, STOP HERE Heart Failure (Qualifier) Patient has current or prior documentation of LVEF less than or equal to 40%, or mod/servere depressed LVSF?: No IF NO, STOP HERE
[2025-04-07 13:00] VITALS: BP 124/82; PULSE 82
--- NOTE | 2025-04-07 13:08 | PC.NURSE ---
Patient preferrs to make follow up appointment with PCP on her own.
--- NOTE | 2025-04-07 16:41 | PC.NURSE ---
1600 discharged to [facility]. meds went over. prescription handed to them. follow up with cardio on thursday,. reinforced the need to f/u with [facility] doctor. claim they still want to call thursday themself to make appointment. daily weights. blood pressures monitor twice a day and take to dr appointment . both son and patient vocalize an understanding. encouraged to call if questions arise.
--- NOTE | 2025-04-11 14:49 | PC.NURSE ---
Discharge call back completed. Doing well, getting stronger. Received good care, thankful for everyone.
== END 2025-04-07 16:00 | disposition home health service (06) | DRG 948 ==
PROVIDERS: Internal Medicine; Nurse Practitioner Family; Admitting Provider Internal Medicine; PCP Internal Medicine; Visit Provider Internal Medicine
DX: R53.81 Other malaise (principal); J47.1 Bronchiectasis with (acute) exacerbation; E78.5 Hyperlipidemia, unspecified; E03.9 Hypothyroidism, unspecified; I44.7 Left bundle-branch block, unspecified; I10 Essential (primary) hypertension; I35.0 Nonrheumatic aortic (valve) stenosis; I95.9 Hypotension, unspecified; M81.0 Age-related osteoporosis without current pathological fracture; M19.90 Unspecified osteoarthritis, unspecified site; M40.209 Unspecified kyphosis, site unspecified; G89.4 Chronic pain syndrome; Z96.641 Presence of right artificial hip joint; Z96.611 Presence of right artificial shoulder joint; Z96.653 Presence of artificial knee joint, bilateral; Z79.82 Long term (current) use of aspirin
CPT/HCPCS: 36415; 80048; 80053; 82948; 83880; 84443; 84484; 85025; 85027; 93005; 97110; 97161; 97165; 97530; 97535; A9270

== ENCOUNTER 2025-05-23 14:24 | Outpatient (CLI) | payer MEDICARE, BC, SELFPAY ==
--- OUTSIDE RECORDS SUMMARY | 2025-05-23 14:33 | XMS_ITS | Clinical Summary ---
Author Organization [facility] Address [address] [place] [address] Care Team Providers Care Mold Filler And Drainer Name Role Phone James Morse MD Primary Care Provider [phone] Ji Rodriguez MD Unavailable [phone] Danielle Reinoso RN Unavailable Unavailable Nancy Sutton RN Unavailable Unavailab le Allergies Active Allergy Reactions Criticality Noted Date Comments Azithromycin Nausea And Vomiting 07/08/2016 Severe nausea and diarrhea Ethambutol Hives Medium Reaction: HIVES Sulfa (Sulfonamide Antibiotics) Hives,Rash Reaction: HIVES, Reaction: Rash, Medications docusate sodium (COLACE) 100 mg capsuleIndicatio ns:constipation Take 1 capsule (100 mg total) by mouth daily as needed Active acetaminophen ER (TYLENOL) 650 mg 8 hr tabletIndication s:Pain Take 1-2 tablets (650-1,300 mg total) by mouth every 8 (eight) hours as needed Active aspirin 81 mg enteric coated tabletIndication s:Myocardial Reinfarction Prevention Take 1 tablet (81 mg total) by mouth every morning Active fluticasone propion-salmeter oL (ADVAIR DISKUS) 100-50 mcg/dose diskus inhaler Inhale 1 puff 2 (two) times a day Rinse mouth with water after use. Do not swallow. 3 each 1 07/09/20 23 Active levothyroxine (SYNTHROID) 50 mcg tablet TAKE 1 TABLET BY MOUTH EVERY DAY 90 tablet 3 12/23/19 25 Active gabapentin (NEURONTIN) 300 mg capsule TAKE 1 CAPSULE BY MOUTH THREE TIMES A DAY 90 capsule 2 02/21/20 Active Additional Information Patient taking differently:300 mg oral2 times daily, Reported on 04/19/2025 celecoxib (CeleBREX) 100 mg capsule TAKE 1 CAPSULE BY MOUTH TWICE A DAY WITH MEALS 180 capsule 02/28/20 Active furosemide (LASIX) 20 mg tablet TAKE 1 TABLET BY MOUTH EVERY OTHER DAY 45 tablet 3 03/14/20 Active Additional Information Patient taking differently:20 mg oralAs needed, Reported on 04/19/2025 traMADoL (ULTRAM) 50 mg tablet TAKE HALF A TABLET (25MG) BY MOUTH EVERY 6 HOURS NEEDED 04/07/20 25 Active guaiFENesin ER (MUCINEX) 600 mg 12 hr tablet Take 1 tablet (600 mg total) by mouth daily Active metoprolol tartrate (LOPRESSOR) 50 mg immediate release tablet Take 1 tablet (50 mg total) by mouth daily 05/05/20 25 Active losartan (Cozaar) 25 mg tablet Take 1 tablet (25 mg total) by mouth daily 90 tablet 3 05/19/20 25 026 Active metoprolol tartrate (LOPRESSOR) 25 mg immediate release tablet Take 1 tablet (25 mg total) by mouth daily 90 tablet 3 04/12/20 25 025 Discontin ued(Reord er) Active Problems Problem Noted Date Diagnosed Date 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 Heart failure with reduced ejection fraction 03/2025 Assessment & Plan (12/01/2024 12:29 PM DELIVERY NURSE): Stable. 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 Will have her hold her evening losartan take losartan 50 in the morning and amlodipine 10 at HS. Primary osteoarthritis of left hip 08/27/2018 Assessment & Plan (12/01/2024 12:29 PM DELIVERY NURSE): Chronic. 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 Swelling of extremity [...] Encounters Date Type Department Care Team Description 05/19/2025 Telephone [facility] [address] [place] [address] [address] [place] [id number] Danielle Reinoso RN 05/05/2025 Telephone [facility] [address] [place] [address] [place] [address] Danielle Reinoso RN 04/19/2025 9:30 AM CDT Office Visit [facility] [address] [place] [address] [place] [address] [address] [place] [address] James Morse MD Rheumatic aortic stenosis (Primary Dx); Heart failure with reduced ejection fraction (HCC); Primary osteoarthritis of left hip 04/12/2025 Telephone [facility] [address] [place] [address] [place] [address] Candace Toro 04/11/2025 1:20 PM CDT Office Visit [facility] Cardiology [address] [facility] 8[address] [place] [address] [place] [id number] Ji Rodriguez MD Heart failure with reduced ejection fraction (HCC) (Primary Dx); Hypertension, unspecified type 04/06/2025 Telephone [facility] [address] [place] [address] [place] [address] Madonna Hill 04/06/2025 Telephone [facility] [address] [place] [address] [place] [address] Danielle Reinoso RN 03/07/2025 Telephone [facility] [address] [place] [address] [address] [facility] [address] [place] [address] James Morse MD Spoke With Home Health Provider 03/07/2025 E-Visit [facility] [address] [place] [address] [address] James Morse MD Update on Chikis [...] on file Legal 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 Gender Identity Female 03/12/2022 7:56 AM CDT Sexual Orientation Not on file Occupation Industry Job Start Date Job End Date Retired Not on file Not on file Not on file Obstetrics History Last Filed Vital Signs Vital Sign Reading Time Taken Comments Blood Pressure 133/82 04/19/2025 9:25 AM CDT Pulse 77 04/19/2025 9:25 AM CDT Temperature 36.4 C (97.6 F) 08/02/2019 1:07 PM CDT Respiratory Rate 16 08/02/2019 1:07 PM CDT Oxygen Saturation 96% 04/19/2025 9:25 AM CDT Inhaled Oxygen Concentration - - Weight 63.5 kg (140 lb) 04/19/2025 9:25 AM CDT Height 160 cm (5' 3) 04/19/2025 9:25 AM CDT Body Mass Index 24.8 04/19/2025 9:25 AM CDT Plan of Treatment Health Maintenance [...] declined, but will receive in the future) Influenza Vaccine (#1) 2025 , 09/02/2023, 09/03/2022, Additional history exists Pneumococcal vaccine 65+ Completed 11/06/2023 Procedures Procedure Name Priority Date/Time Associated Diagnosis [...] by: Yasmin Lara M.D. James Morse MD [facility] DXA PROCEDURES Final Resu lt from Last 3 Months or Most Recently Relevant to Health Maintenance Insurance MEDICARE [facility] Member Subscriber Plan / Payer ( fective 2009-Present) Name:Chikis Arango Relation to Subscriber:Self Name:CHIKIS ARANGO Payer ID:[id number] (NAIC) Type:[employer] Address: [address] MEDICARE BLUE TRADITIONAL OOS TRADITIONAL OOS MEDICARE MEDICARE [employer] TRADITIONAL OOS Member Subscriber Plan / Payer (Ef fective 2009-Present) Name:Chikis Arango Relation to Subscriber:Self Name:Chikis Arango Payer ID:[id number] (NAIC) Type: [employer] Address: [address] [place] [id number] Care Teams Mold Filler And Drainer Relationship Specialty Start Date End Date James Morse MD PCP - General Internal Medicine 05/11/19 Ji Rodriguez MD Referring Physician Cardiology 08/05/22 Danielle Reinoso, rocket engine tester Failure Coordinator Transplant 11/25/23 Nancy Sutton RN Heart Failure Coordinator Cardiology 04/12/24
--- OUTSIDE RECORDS SUMMARY | 2025-05-23 14:33 | XMS_ITS | Encounter Summary ---
Author Organization [facility] Address [address] [place] [address] Care Team Providers Care Laundry Tech Name Role Phone James Morse MD Primary Care Provider Ji Rodriguez MD Unavailable [phone] Danielle Reinoso RN Unavailable Unavailable Nancy Sutton RN Unavailable Unavailab le Encounter Details Date Type Department Care Team (Late st Contact Info) Description 03/07/2025 E-Visit [facility] [address] [address] James Morse MD [address] [place] [id number] Update on Chikis Arango Social History [...] on file Legal Sex Female 11:31 PM CABINET WORKER Gender Identity Female 03/12/2022 7:56 AM CDT Sexual Orientation Not on file Occupation Industry Job Start Date Job End Date Retired Not on file Not on file Not on file documented as of this encounter Plan of Treatment Not on file documented as of this encounter Visit Diagnoses Not on filedocumented in this encounter Care Teams Laundry Tech Relationship Specialty Start Date End Date James Morse MD PCP - General Internal Medicine 05/11/19 Ji Rodriguez MD Referring Physician Cardiology 08/05/22 Danielle Reinoso, audiovisual production specialist Failure Coordinator Transplant 11/25/23 Nancy Sutton, audiovisual production specialist Failure Coordinator Cardiology 04/12/24 documented as of this encounter
--- OUTSIDE RECORDS SUMMARY | 2025-05-23 14:33 | XMS_ITS | Referral Summary ---
Author Organization [facility] Address [address] [place] [address] Care Team Providers Care Manager Staffing Name Role Phone James Morse MD Primary Care Provider [phone] Ji Rodriguez MD Unavailable [phone] Danielle Reinoso RN Unavailable Unavailable Nancy Sutton RN Unavailable Unavailab le Encounters Date Type Department Care Team Description 05/19/2025 Telephone [facility] Trans[facility] Heart [address] [facility] [address] [id number] [place] [address] Danielle Reinoso RN 05/05/2025 Telephone [facility] [address] [facility] [address] [facility]-587 [place] [address] Danielle Reinoso RN 04/19/2025 9:30 AM CDT Office Visit [facility] [address] [place] [address] [address] [employer] [address] [place] [phone] James Morse MD Rheumatic aortic stenosis (Primary Dx); Heart failure with reduced ejection fraction (HCC); Primary osteoarthritis of left hip 04/12/2025 Telephone [facility] Trans[facility] Heart [address] [facility] [address] [employer] 54-15-264 [place] [address] Candace Toro 04/11/2025 1:20 PM CDT Office Visit [facility] [address] [facility] 8th [place] [phone] Ji Rodriguez MD Heart failure with reduced ejection fraction (HCC) (Primary Dx); Hypertension, unspecified type 04/06/2025 Telephone [facility] Transplant Heart [address] [facility] [address] [employer] 20-22-570 [place] [address] Madonna Hill 04/06/2025 Telephone [facility] Transplant Heart [address] [facility] [address] [employer] 27-84-632 [place] [address] Danielle Reinoso RN 03/07/2025 Telephone [facility] [address] [place] [address] [address] [facility] [address] [place] [address] James Morse MD Spoke With Home Health Provider 03/07/2025 E-Visit [facility] [address] [facility] [address] [place] [address] James Morse MD Update on [...] DAY 90 capsule 2 02/21/20 25 Active Additional Information Patient taking differently:300 mg [...] 12/01/2024 Assessment & Plan (12/01/2024 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 Heart failure with reduced ejection fraction 03/2025 Assessment & Plan (12/01/2024 12:29 PM GRAINING OPERATOR): Stable. 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 Will have her hold her evening losartan take losartan 50 in the morning and amlodipine 10 at HS. Primary osteoarthritis of left hip 08/27/2018 Assessment & Plan (12/01/2024 12:29 PM GRAINING OPERATOR): Chronic. 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 Swelling of [...] Average Number of Drinks Not on file Q3: How often do you have si x or more drinks on one occasion? Never 08/12/2021 Comments No Sex and Gender Information Value Date Recorded Sex Assigned at Not on file Legal Sex Female 11:31 PM GRAINING OPERATOR Gender Identity Female 03/12/2022 7:56 AM [...] 04/19/2025 9:25 AM CDT Plan of Treatment Not on file Procedures [...] to Health Maintenance Insurance MEDICARE [facility] [employer] [place] [employer] MED[employer] [place] MEDICARE MEDICARE [facility] Care Teams Manager Staffing Relationship Specialty Start Date End Date James Morse MD PCP - General Internal Medicine 05/11/19 Ji Rodriguez MD Referring Physician Cardiology 08/05/22 Danielle Reinoso, printed circuit board panels trimmer Failure Coordinator Transplant 11/25/23 Nancy Sutton printed circuit board panels trimmer Failure Coordinator Cardiology 04/12/24
--- OUTSIDE RECORDS SUMMARY | 2025-05-23 14:33 | XMS_ITS | Continuity of Care Document ---
Author Organization [facility] Address [address] [place] [address] Phone Care Team Providers Care Manager Marketing Name Role Phone Kevin Shaw DO Unavailable Unavailable Advance Directives Directive Yes / No Effective Date File Name No Information Encounters Encounter Description Practice Location Reason(s) For Visit Diagnoses Date Provider Providers Copied on Encounter [facility], [address], [place], [place], [id number], [place] tel:[phone] [address] [facility] No Information Valeria Frederick. [address] [facility], [place], [address], [place]. tel: [phone] Family History Family Member Type Diagnosis Age At Onset No Information Payers Payer name Insurance type Covered libertarian ID Authoriza tion(s) No Information Social History [...]
--- OUTSIDE RECORDS SUMMARY | 2025-05-23 14:33 | XMS_ITS | Clinical Summary ---
Author Organization [facility] Address [address] [place] [address] Care Team Providers Care Paper Twister Name Role Phone James Morse MD Primary Care Provider [phone] James Morse MD Unavailable [phone] Angie Claudio RN Unavailable Unavailable Source Comments [facility],non-[facility] Affiliates and Associated Physician Practices is amultiple site organization consisting of ambulatory clinics and hospital sitesin [place], [place], [place]. This disclosure is being madepursuant to the Care Everywhere program and may not contain all information available regarding this patient. 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 Gender Identity Not on file Sexual Orientation [...] season) 2024 DEPRESSION SCREENING 10/26/2024 INFLUENZA VACCINE (#1) 2025 HEPATITIS B VACCINE Aged Out No [...] this topic Medical Devices Implanted Type Area Brick Setter Device Identifier Shelf Expiration Date Model / Serial / Lot Cmnt Bone Plc R 40gm Grn Implanted:Qty: 2 on 05/14/2017 by Smith Jennings MD at [facility] Right: Knee [employer] 12/23/2021 [id number] / / [id number] Journey Nonporous Tibial Baseplate Implanted:Qty: 1 on 05/14/2017 by Smith Jennings MD at [facility] Right: Knee [employer] 04/14/2027 [id number] / / [id number] Size 4 Right Bi Cruciate Stabilized Journey Ii Bcs Oxinium Femoral Component Implanted:Qty: 1 on 05/14/2017 by Smith Jennings MD at [facility] Right: Knee [employer] 03/29/2027 [id number] / / [id number] Cmpnt Ptlr Ovl [id number] Gns2 Uhmwpe Kn Implanted:Qty: 1 on 05/14/2017 by Smith Jennings MD at [facility] Right: Knee [employer] 04/15/2027 [id number] / / [id number] Right Size 3-4 15mm Journey Ii Bcs Xlpe A/P 48mm M/L 68mm Articular Insert Implanted:Qty: 1 on 05/14/2017 by Smith Jennings MD at [facility] Right: Knee [employer] 12/29/2026 [id number] / / [id number] Explanted Type Area Brick Setter Device Identifier Shelf Expiration Date Model / Serial / Lot Ns Vis Cut Guide Jii Kit Rt Sz F4/T3 Explanted:Qty: 1 on 05/14/2017 at [facility] Right: Knee [employer] 08/03/2017 [id number] / / [id number] Insurance MEDICARE [facility] Advance Directives Documents on File Type Date Recorded 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
--- NOTE | 2025-06-14 12:50 | P.PCNPFT_ITS ---
PFT Procedure Performed PFT Procedure Performed Spirometry with Pre/Post Bronchodilator Plethysmography (Lung Vol) Diffusing Cap (DLCO) Flow Vol Loop PFT Interpretation DOS: 05/23/2025 REQUESTING: Emmanuel Headley MD REASON FOR TESTING: Bronchiectasis PULMONARY FUNCTION TESTS Results are reliable and reproducible. Repeatability of spirometry FEV1 maneuver pre and post bronchodilator is Grade A. Armin: GLI 2012 reference equations were used. Spirometry: The pre-bronchodilator FEV1 is 1.14 L, 60%, reduced. The pre- bronchodilator FVC is 1.61 L, 64%, reduced. The FEV1/FVC ratio is 71%, normal. After bronchodilator, the FEV1 is 1.22 L, 64%, +7%. After bronchodilator, the FVC is 1.74 L, 69%, +8%. The FEV1/FVC ratio is 70%. This shows a non statistically significant response to bronchodilator. Lung volumes: The total lung capacity is 4.27 L, 84%, normal. FRC is 2.75 L, 94%, normal The residual volume is 2.60 L, 107%, normal. The RV/TLC is 61%, elevated consistent with air trapping. Airway resistance is elevated. Diffusion: DLCO is 9.4, 49%, reduced. The DLCO/VA is 3.63 which is 88%, normal. Flow volume loop: The flow volume loop shows a 'Knee in the expiratory limb which is a normal variant. IMPRESSION: Spirometry showed PRISm, preserved ratio impaired spirometry with a normal ratio forced expiratory volume but the FEV1 is less than 80% of predicted. Lung volumes show air trapping, and diffusion is low, corrects when adjusted for alveolar volume. Clinical correlation recommended. There are no prior studies for comparison. Elizabeth Farnsworth MD
== END 2025-05-23 14:25 | disposition home or self-care (01) ==
PROVIDERS: PCP Internal Medicine; Visit Provider Internal Medicine Pulmonary Disease
DX: J47.1 Bronchiectasis with (acute) exacerbation (principal)
CPT/HCPCS: 94060; 94726; 94729

== ENCOUNTER 2025-08-14 12:58 | Outpatient (CLI) | payer MEDICARE, BC, SELFPAY ==
--- NOTE | 2025-09-18 00:57 | WPDPFTINT ---
PFT Procedure Performed PFT Procedure Performed Spirometry with Pre/Post Bronchodilator Plethysmography (Lung Vol) Diffusing Cap (DLCO) Flow Vol Loop PFT Interpretation DOS: 08/14/2025 REQUESTING: Emmanuel Headley MD REASON FOR TESTING: bronchiectasis PULMONARY FUNCTION TESTS Results are reliable and reproducible. Repeatability of spirometry FEV1 maneuver pre and post bronchodilator is Grade A. Armin: GLI 2012 reference equations were used. Spirometry: The pre-bronchodilator FEV1 is 0.97 L, 51%. The pre-bronchodilator FVC is 1.45 L, 58%. The FEV1/FVC ratio is 67%, normal ratio. After bronchodilator, the FEV1 is 1.11 L, + 14. After bronchodilator, the FVC is 1.60 L, +10. The FEV1/FVC ratio is 69%. The response to bronchodilator is not statistically significant as the increase in FEV1 is less than 200 mL. Lung volumes: The total lung capacity is 4.80 L, 95%. The slow vital capacity is 1.63 L, 65%, higher than the forced vital capacity measured in spirometry, consistent with dynamic airway collapse. The residual volume is 3.17 L, 130%. The RV/TLC is 66%, increased, consistent with air trapping. The functional reserve capacity us 3.37 L, 114%. Airway resistance is increased. Diffusion: DLCO is 9.2, 48%. The DLCO/VA is 3.50, 85%. Flow volume loop: The flow volume loop shows 'knee' in the expiratory limb, a variant of normal. IMPRESSION: Spirometry showed PRISm, preserved ratio impaired spirometry with a normal ratio forced expiratory volume but the FEV1 is less than 80% of predicted. Lung volumes show air trapping, and diffusion is low, corrects when adjusted for alveolar volume. Compared to a PFT 05/23/2025, the values are similar. Elizabeth Farnsworth MD
== END 2025-08-14 12:59 | disposition home or self-care (01) ==
PROVIDERS: PCP Internal Medicine; Visit Provider Internal Medicine Pulmonary Disease
DX: J47.1 Bronchiectasis with (acute) exacerbation (principal)
CPT/HCPCS: 94060; 94726; 94729